=== PATIENT | female | born 2000 | race Caucasian/White ===

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

== ENCOUNTER 2019-03-14 16:45 | Emergency (ER) | payer BC, MEDICAID, SELFPAY ==
[2019-03-14 16:47] VITALS: BP 124/88; PULSE 81; RESP 16; TEMP 36.4; O2SAT 99; BMI 32.4
--- NOTE | 2019-03-14 17:08 | ED.DCSUM_ITS ---
- ER Visit Summary Date of Service: 03/14/19 Chief Complaint: Vaginal bleeding History of Present Illness: The patient is a 18 F no significant past medical or surgical history. G1, P1 Ab0. Delivered about 1-1/2 years ago. Patient states she had a normal menstrual period about 2 weeks ago. And then about a week ago started on vaginal bleeding. She states is heavier than the. And there are clots. She is having mild cramping. No discharge. No fever. No dysuria. She states she normally does not have vaginal bleeding like this. She does feel slightly lightheaded. She is on no blood thinners. Physical Examination: Well-appearing young female. Vital signs are stable and afebrile. Blood pressure 124/88. Heart rate 81. She does not look septic or toxic. She is in no distress. Mom is present in the room. HEENT exam unremarkable. Lungs clear to auscultation bilaterally. Heart regular rhythm no murmur rate about 80. Abdomen soft and nontender normal bowel sounds no peritoneal signs. Extremities moves all 4. No edema. Neurologically she is awake alert with no focal motor deficits. Tests: CBC is normal with a white count of 6 hemoglobin 12.6. Serum test is negative. Emergency Department Course and Treatment: Patient treated with 1 L normal saline. Exam patient is doing well at 18. She denied discussed her test results. She will follow-up with her VICE PRESIDENT OF COMMUNICATIONS Dr. Sunshine Luna. She deferred her pelvic exam on her as normal.. Treatment Plan: Follow-up with VICE PRESIDENT OF COMMUNICATIONS. Disposition: Discharge Impression: Acute vaginal bleeding of uncertain etiology This note was generated with [employer] dictation software. It may contain incorrect words, spelling, and punctuation that were not noted in review of the chart prior to signing ED Disposition - Plan for ED Patient: Referrals: Rekha Dunbar MD [Primary Care Provider] -
[2019-03-14] MEDS: 0.9% Normal Saline 1,000 ML 1000 ML IV (17:35)
[2019-03-14 17:37] LABS: Hematocrit 38.3 % (37-47); Hemoglobin 12.6 g/dL (12.0-15.0); Mean Corp Hgb Conc 32.9 g/dL (32-36); Mean Corpuscular Volume 88.2 fL (81-99); Mean Platelet Vol. 9.8 fl (6.2-12.0); Platelet Count 318 K/mm3 (150-450); RBC Distribution Width CV 11.7 % (11.6-14.6); RBC Distribution Width SD 37.7 fl (35.1-43.9); Red Blood Count 4.34 M/mm3 (4.2-5.4); White Blood Count 6.5 K/mm3 (4.4-11.0)
--- NOTE | 2019-03-14 18:17 | ED.RN ---
PT RINGS OUT STATING THAT HER IV IS PAINFUL. THIS RN TO BEDSIDE, OBVIOUS INFILTRATION NOTED. IV FLUIDS STOPPED, IV DISCONTINUED, CATHETER INTACT, SMALL GAUZE DRESSING PLACED. WARM COMPRESS APPLIED AND SECURED WITH GAUZE WRAP, ARM ELEVATED ON PILLOW, PHYSICIAN AND PRIMARY RN AWARE. PHYSICIAN STATES THAT PATIENT DOES NOT NEED ANOTHER IV.
[2019-03-14 18:34] LABS: Internal QC Validated? YES +Cl - CLEAR BKGD; Pregnancy, Serum, hCG Quali. NEGATIVE Negative
--- NOTE | 2019-03-14 19:47 | ED.DEP ---
ED Disposition - Plan for ED Patient: Disposition: Home or Assisted Living Instructions: Dysfunctional Uterine Bleeding Referrals: Sunshine Luna MD [STAFF PHYSICIAN] - As soon as possible Additional Instructions: Plenty fluids and rest. Tylenol and Motrin for pain. Follow-up with your INDUSTRY OPERATIONS INVESTIGATOR. Your labs today were normal. You had a normal blood count with a hemoglobin of 12.6. And your test was negative.
[2019-03-14 19:51] VITALS: RESP 14
== END 2019-03-14 19:57 | disposition home or self-care (01) ==
PROVIDERS: Emergency Provider Emergency Medicine; Family Provider Pediatrics; PCP Pediatrics
DX: N93.9 Abnormal uterine and vaginal bleeding, unspecified (principal); Z72.0 Tobacco use
CPT/HCPCS: 84703; 85027; 96360; 99284; J7030; A4216

== ENCOUNTER 2019-04-19 09:56 | Day surgery (SDC) | payer BC, MEDICAID, SELFPAY ==
--- NOTE | 2019-04-10 11:25 | HP.PCM_ITS ---
History and Physical Date of Admission: 04/19/19 Pre-Op History and Physical ? HPI: The patient is a 18 year old female presenting for pre-operative visit. She is scheduled for?hysteroscopy D&C, possible polyp resection and possible?LARC insertion, for?AUB and contraceptive management? on?04/19/16. ??Procedure discussed along with risks, benefits and complications. ?Other alternatives discussed for management. Consent form signed??Yes.? PAST?MEDICAL?HISTORY PAST MEDICAL HISTORY Diagnosis Date ? Abdominal pain 01/15/2013 ? Blood in stool ? ? ? PAST?SURGICAL?HISTORY PAST SURGICAL HISTORY Procedure Laterality Date ? COLONOSCOPY ? 02/20/13 ? Negative ? EGD ? 02/20/13 ? Negative ? ? CURRENT?MEDICATIONS Current Outpatient Medications Medication Sig Dispense Refill ? L.acidoph-B.lactis-B.longum (FLORAJEN3) 460 mg (7.5-6- 1.5 bill. cell) cap Take 1 capsule by mouth once daily. 30 capsule 0 ? ibuprofen (MOTRIN) 200 mg tablet Take 200 mg by mouth every 6 hours as needed. ? ? ? clotrimazole (LOTRIMIN, CLOTRIM) 1 % cream Apply 1 application to affected area twice daily. (Patient not taking: Reported on 03/15/2019 ) 45 g 1 ? MEDICATION, NON-DATABASE [employer] brand cough and cold medicine ? ? ? No current facility-administered medications for this visit.? ? ALLERGIES:?Sulfa (Sulfonamide Antibiotics) ? PERSONAL HISTORY:? SOCIAL?HISTORY Social History ??Socioeconomic History ?Marital status: Single ?Spouse name: Not on file ?Number of children: 1 ?Years of education: Not on file ?Highest education level: Not on file ??Occupational History ?Occupation: Unemployed ??Social Needs ?Financial resource strain: Not on file ?Food insecurity: ?Worry: Not on file ?Inability: Not on file ?Transportation needs: ?Medical: Not on file ?Non-medical: Not on file ??Tobacco Use ?Smoking status: Current Some Day Smoker ?Types: Cigarettes ?Smokeless tobacco: Never Used ??Substance and Sexual Activity ?Alcohol use: No ?Drug use: No ?Sexual activity: Not Currently ??Lifestyle ?Physical activity: ?Days per week: Not on file ?Minutes per session: Not on file ?Stress: Not on file ??Relationships ?Social connections: ?Talks on phone: Not on file ?Gets together: Not on file ?Attends roman catholic service: Not on file ?Active member of club or organization: Not on file ?Attends meetings of clubs or organizations: Not on file ?Relationship status: Not on file ?Intimate partner violence: ?Fear of current or ex partner: Not on file ?Emotionally abused: Not on file ?Physically abused: Not on file ?Forced sexual activity: Not on file ??Other Topics ?Concerns: ?Not on file ??Social History Narrative ?Not on file ? FAMILY HISTORY:? FAMILY?HISTORY FAMILY HISTORY Problem Relation Age of Onset ? None Mother ? ? None Father ? ? No Known Problems Sister ? ? Stroke Maternal Grandmother ? ? Thyroid Maternal Grandmother ? ? Heart Maternal Grandfather ? ? None Sister ? ? None Brother ? ? REVIEW OF SYMPTOMS: GENERAL: denies fevers or chills ENDOCRINOLOGY:?no heat or cold intolerance Cardiology : denies palpitations or chest pain Respiratory: denies SOB or cough Hematology: denies history of prolonged bleeding or easy bruising or VTE Allergy: Denies history of personal or family history of allergy to anesthesia ? ? PHYSICAL EXAMINATION: ? VITALS:?Last menstrual period 03/12/2019, not currently . ? GENERAL:??The patient is well nourished, well hydrated in no acute distress. ?, The patient is oriented to time, place, and person. NECK:?Supple. No lynphadenopathy, normal thyroid, no thyromegaly. LUNGS:?Clear to auscultation bilaterally. no wheezes, rhonchi or rales HEART:?Regular rate and rhythm, Normal heart sounds and No murmurs or gallops ? IMPRESSION:?Abnormal uterine bleeding, endometrial polyp, contraception?management ? PLAN:???The risks/benefits/alternatives and personal involved for the planned?hysteroscopy dilation and curettage, possible polyp resection, possible?LARC insertion?were reviewed with the patient. Her questions were answered to her satisfaction and she desires to proceed. ?Consent was signed. ?I reviewed with her postop instructions and expectations. ? ? I have reviewed and updated past medical and surgical history, medications and allergies? this history and physical was completed in my office on 04/10/2019.
[2019-04-19] VITALS (7 sets, daily range): BP systolic 101–130; BP diastolic 56–62; PULSE 70–90; RESP 16; TEMP 37.2–37.3; O2SAT 96–100; BMI 32.1
--- NOTE | 2019-04-19 | EMB_PTH ---
PATIENT: JHON WHITT [place] [facility] [id number] AGE/SX: 18/ ROOM: RE04/19/[address]: Dr. Shana Mcgrath MD : 2000 BED: DIS: 04/19/2019 SPEC #: [id number] RECD: 04/19/19 13:47 STATUS: VISHAL DAMON #: [id number] JOVI: 04/19/19 00:[address]: Shana Mcgrath DEPT: SURGICAL PATHOLOGY RECD BY: Satya Rivers ENTERED: 04/19/19 13:48 SP TYPE: ENDOM BX/C LASHA DR: Dr. Rekha Dunbar MD Tissues: Endometrium, NOS Procedures: Surgery Specimen Level IV HEADER OPERATION: Hysteroscopy, endometrial polyp resection PRE-OP DIAGNOSIS: Abnormal uterine bleeding, endometrial polyp TISSUE SUBMITTED: Endometrial curettings MICROSCOPIC DIAGNOSIS Endometrium, curettings: Polypoid fragments of proliferative endometrium. Chronic endometritis. Rare fragments of benign superficial endocervix. AM:carole 04/20/19 MICROSCOPIC DESCRIPTION Slides are reviewed. GROSS DESCRIPTION Received in fixative is one container labeled with the patient's name and designated endometrial curettings. The specimen consists of multiple irregular fragments of crook-pink soft tissue that in aggregate measure 2.5 x 1.5 x 0.2 cm. The entire specimen is submitted in one cassette. / SJ:carole 04/19/19 TC:3 CPT: 79903
[2019-04-19 10:32] LABS: Hematocrit 35.4 % (37-47); Hemoglobin 11.5 g/dL (12.0-15.0); Mean Corp Hgb Conc 32.5 g/dL (32-36); Mean Corpuscular Volume 86.3 fL (81-99); Mean Platelet Vol. 10.1 fl (6.2-12.0); Platelet Count 311 K/mm3 (150-450); RBC Distribution Width SD 38.1 fl (35.1-43.9); White Blood Count 5.4 K/mm3 (4.4-11.0)
[2019-04-19 10:36] LABS: Internal QC Validated? YES +Cl - CLEAR BKGD; Pregnancy, Urine Negative Negative
[2019-04-19] MEDS: Acetaminophen 500 MG Tablet 1000 MG PO (10:43)
[2019-04-19] MEDS: Lactated Ringers 1,000 ML 100 ML IV ×2 (10:44→13:01)
[2019-04-19] MEDS: Ketorolac 30 MG/ML Syringe IV (10:44)
--- NOTE | 2019-04-19 12:43 | DCINST_ITS ---
Discharge Diet: No Restrictions Discharge Activity: Return to Normal Activity, May Shower, May Take a Tub Bath - in 2 weeks. May resume sexual activity in: 2 weeks Call your doctor if your incision/area has: Sudden Increased Bleeding, Foul Smelling Discharge Call your doctor if you observe: Fever of 101 or Higher, Using more than one pad per hour - for 2 hrs in a row Allergies/Adverse Reactions: Allergies Sulfa (Sulfonamide Antibiotics) Allergy (Verified 04/17/19 12:01) Hives Medications to take at Discharge Ibuprofen [Motrin] 600 mg PO Q6H PRN #60 tab 04/19/19 The following prescriptions were given: Ibuprofen [Motrin] 600 mg PO Q6H PRN #60 tab PRN Reason: Pain Transmission Status: Pending to [facility]/pharmacy #[id number] Primary Care Physician: Rekha Dunbar MD [Primary Care Provider] - Test Results: Test results from this visit will be discussed in further detail at your follow- up appointment, if applicable. Please Follow Up With: Shana Mcgrath MD - [phone] When: 2-4 weeks or as needed
--- NOTE | 2019-04-19 12:43 | PCM.OPRPT ---
Report of Operation Date of Procedure: 04/19/19 Pre-Operative Diagnosis: abnormal uterine bleeding, thickened endometrium Post-Operative Diagnosis: same Surgery/Procedure Performed:: Hysteroscopy D&C with symphion device instructional systems specialist: emilia vicente Type of Anesthesia:: MAC/Supplemental/Local Anesthesiologist: Wil Early Special Medications: none Specimen's removed: endometrial curettings Drains: none Estimated Blood Loss (mL): 10 Fluids Replaced: 1000cc Description of Procedure: The patient was taken to the OR where she was prepped and draped in dorsal lithotomy position. The weighted speculum was placed in the vagina and the anterior lip of the cervix was grasped with a single-tooth tenaculum. A paracervical block was administered with 1% lidocaine with 1-100,000 epinephrine solution. The cervix was dilated serially with Hegar dilators. The 5mm hysteroscope was placed into the uterine cavity and the above findings were noted. Bilateral tubal ostia were identified. No discrete endometrial polyp was noted. The Symphony on device was used to perform visual D&C of the endometrial cavity. The instruments were removed from the vagina. The specimen was handed off and sent to pathology. All sponge and needle counts were correct. Vaginal sweep was performed by me. The patient was awakened and taken to the recovery room in stable condition. Hysteroscopic ins: 500cc normal saline Hysteroscopic outs:250cc Findings: Endometrial cavity: Normal, no fibroids or polyps noted Cervix: Normal Vagina: Normal Grafts/Implants Used: none - Complications none - Admit VTE Documentation VTE Present on Admission: No VTE Mechan Device Prophylaxis: SCD's VTE Pharm Prophylaxis ordered?: No Reason prophylaxis not ordered:: Procedure Not Indicated
== END 2019-04-19 14:35 | disposition home or self-care (01) ==
LOC: SDC 09:57 → AC 09:59
PROVIDERS: Family Provider Pediatrics; PCP Pediatrics; Referring Provider Obstetrics & Gynecology; Visit Provider Obstetrics & Gynecology
PROC: (CPT 58558; principal; 2019-04-19 11:40)
DX: N71.1 Chronic inflammatory disease of uterus (principal); N93.9 Abnormal uterine and vaginal bleeding, unspecified; R93.89 Abnormal findings on diagnostic imaging of other specified body structures; F17.210 Nicotine dependence, cigarettes, uncomplicated; Z88.2 Allergy status to sulfonamides
CPT/HCPCS: 58558; 36415; 81025; 85027; 88305; J7120; J2405

== ENCOUNTER 2019-07-27 23:01 | Emergency (ER) | payer BC, MEDICAID, SELFPAY ==
[2019-04-19 10:27] VITALS: BMI 32.1
[2019-07-27 23:02] VITALS: BP 113/62; BP 115/77; PULSE 72; PULSE 78; RESP 15; RESP 16; TEMP 37.1; O2SAT 98; O2SAT 99; BMI 33.0
--- NOTE | 2019-07-27 23:33 | US_ITS ---
HISTORY: Heavy bleeding. Stabbing pain. LMP 06/11/2019. 88 images, and 2 cine clips. Findings: Endovaginal imaging only. The uterus measures 9.2 x 4.4 x 6.7 cm. Some hypoechoic fluid is been within the endocervical canal, suggesting blood. Color Doppler imaging fails to demonstrate flow within the endocervical canal. No large masses or fluid collections. The right ovary measures 2.5 x 3.3 x 2 cm. Color and pulse Doppler imaging to suggest arterial and venous flow within the right ovarian parenchyma. The left ovary measures 2.5 x 2.7 x 1.9 cm. Color and pulse wave Doppler imaging suggest arterial flow within the left ovarian parenchyma. Follicles are present. Mean sac diameter is 2.4 cm. This equates to 7 weeks estimated gestational age. A physiologic amount of free fluid is present posteriorly. Within the gestational sac there is a yolk sac and a fetus. Inner yolk sac diameter is 4 mm. Pooler-rump length is 6 mm. heart motion by M-mode imaging is detected at 120 bpm. US/Transvaginal w/Preg US IMPRESSION: SLIUP. EGA is 6 W-4 D. MICA is 03/13/2020. Tiny amount of fluid within the endocervical canal may be blood. at 0025 Reported and signed by: Shahram Johnson MD Electronically Signed: Shahram Johnson MD at 0:24 EST Tel , Service support ,
--- NOTE | 2019-07-27 23:33 | ED.VIS.GEN ---
History of Present Illness Chief Complaint: Vag Bld, Preg Narrative: Patient is a 18-year-old G2, P1 6-week female who presents with vaginal bleeding. She had some spotting over the last week. However her bleeding became heavier tonight and she describes as similar to a period. She denies any clots. She does complain of some pelvic cramping. No fevers nausea vomiting diarrhea. No dysuria urgency frequency. She denies recent illness. Past Medical History - Allergies and Home Meds Allergies/Adverse Reactions: Allergies Sulfa (Sulfonamide Antibiotics) Allergy (Verified 07/27/19 23:07) Hives Primary Care Physician: Rekha Dunbar MD [Primary Care Provider] - Past Medical History: None Smoking Status: Light Smoker (<10/day) Review of Systems All systems negative except as indicated General: Denies: Fever Eyes: Denies: Visual changes - bilaterally ENT: Denies: Bilateral ear pain Cardiovascular: Denies: Chest pain Respiratory: Denies: Dyspnea Gastrointestinal: Denies: Abdominal pain, Nausea, Vomiting Genitourinary: Reports: - - Pelvic pain, vaginal bleeding. Denies: Dysuria, Frequency Skin: Denies: Rash Neurological: Denies: Headache Hematologic: Denies: Easy bruising Allergy: Denies: Uticaria Physical Exam Vital Signs/Narrative: Vital Signs Temp Pulse Resp BP Pulse Ox 07/27/19 23:02 98.8 F 78 15 113/62 98 Inital Vital Signs reviewed: Yes General: Well nourished Head: Normocephalic Eyes: EOMI ENT: Moist mucous membranes Neck: Supple Cardiovascular: Regular rate, Regular rhythm Respiratory: No distress Abdomen: Soft, Nontender, Nondistended Skin: Normal color Neurological: Alert Psychological: Normal affect Diagnostic/Tx/Re-eval Impressions Obstetrics Ultrasound 07/27/19 23:33 IMPRESSION: SLIUP. EGA is 6 W-4 D. MICA is 03/13/2020. Tiny amount of fluid within the endocervical canal may be blood. at 0025 Reported and signed by: Shahram Johnson MD Electronically Signed: Shahram Johnson MD at 0:24 EST Tel , Service support , 07/27/19 23:33 Transvaginal w/Preg US [US] Stat Laboratory Results 07/28/19 07/28/19 07/28/19 00:06 00:06 00:25 HCG, Quant [id number] H Urine Color Yellow Urine Clarity Sl. Cloudy Urine pH 6.0 Ur Specific [place] 1.020 Urine Protein Negative Urine Glucose (UA) Normal Urine Ketones 5 H Urine Occult Blood 250 H Urine Nitrite Negative Urine Bilirubin Negative Urine Urobilinogen Normal Ur Leukocyte Esterase Negative Urine RBC 0-5 SEEN Urine WBC 0-5 SEEN Ur Squamous Epith Cells 0-5 SEEN Amorphous Sediment 1+ Urine Bacteria 0 SEEN Urine Mucus 0 SEEN Blood Type AB NEGATIVE - Medical Decision Making Patient underwent the above diagnostic evaluation. Urinalysis is not suggestive of cystitis. Ultrasound does show a single live intrauterine with fluid within the endometrial canal, likely small amount of blood. She has Rh-. Therefore she was given RhoGam. She was advised that given early with bleeding this threatened miscarriage. She understands to return for new or worsening symptoms otherwise to follow-up as an outpatient with obstetrics. All questions answered at bedside. Patient discharged. ED Disposition - Plan for ED Patient: Disposition: Home or Assisted Living Diagnosis: Threatened miscarriage Instructions: POSSIBLE MISCARRIAGE (Threatened ) Referrals: Rekha Dunbar MD [Primary Care Provider] - Janett Greenfield DO [STAFF PHYSICIAN] -
[2019-07-28 00:35] LABS: Bacteria 0 SEEN /hpf (None Seen); Mucous, Urine 0 SEEN /hpf (<or=2+)
[2019-07-28 00:36] LABS: Color, Urine Yellow (Yellow); Glucose, Dipstick Normal (Normal); Ketone-Dipstick 5 mg/dl (Negative); Leukocyte Esterase-Dipstick Negative /ul (Negative); Nitrite-Dipstick Negative (Negative); Occult Blood-Urine 250 /ul (Negative); Protein-Dipstick Negative (Negative); Urine Bilirubin Dipstick Negative (Negative); Urine Clarity Sl. Cloudy (Clear); Urine Urobilinogen Normal (Normal)
[2019-07-28 01:02] VITALS: BP 118/82; PULSE 76; RESP 15; O2SAT 98
[2019-07-28 01:04] LABS: Amorphous Sediment 1+; Red Blood Cells-Urine 0-5 SEEN /hpf (0-5); Squamous Epithelial Cells - UA 0-5 SEEN /hpf (5-10); White Blood Cells 0-5 SEEN /hpf (0-5)
--- NOTE | 2019-07-28 02:46 | ED.RN ---
SHOT TIME OBSERVED FOR 20 MIN, NO REACTION NOTED BY THIS NURSE.
[2019-07-28 02:47] VITALS: BP 115/75; PULSE 88; RESP 16; O2SAT 97
== END 2019-07-28 02:47 | disposition home or self-care (01) ==
PROVIDERS: Emergency Provider Emergency Medicine; Family Provider Pediatrics; PCP Pediatrics
DX: O20.0 Threatened abortion (principal); O99.331 Smoking (tobacco) complicating pregnancy, first trimester; F17.200 Nicotine dependence, unspecified, uncomplicated; Z3A.01 Less than 8 weeks gestation of pregnancy
CPT/HCPCS: 76817; 81001; 84702; 86900; 86901; 90384; 99283; J2790

== ENCOUNTER 2019-08-01 21:34 | Emergency (ER) | payer BC, MEDICAID, SELFPAY ==
[2019-08-01 21:34] VITALS: BP 107/58; PULSE 82; RESP 16; TEMP 37.2; O2SAT 97; BMI 32.9
--- NOTE | 2019-08-01 21:52 | US_ITS ---
STUDY: FIRST TRIMESTER OBSTETRICAL ULTRASOUND REASON FOR EXAM: Female, 18 years old bleeding with clots today, evaluate for viability LMP: 06/11/2019 TECHNIQUE: Transvaginal TECHNICAL QUALITY: Adequate. PRIOR ULTRASOUND: Prior study of 07/27/2019 FINDINGS: There is visualization of a single gestational sac in a normal intrauterine position. The mean sac diameter (MSD) measures 2.79 cm, indicating an estimated gestational age (EGA) of 8 weeks, 0 days. The gestational sac shape is within normal limits. There is a visualized yolk sac. The yolk sac measures 3.8 mm. There is visualization of the placenta. Anterior located placenta. There is visualization of a live embryo. The crown-rump length (CRL) measures 1.19 cm, indicating an estimated gestational age (EGA) of 7 weeks, 3 days. There is demonstrated cardiac activity with a heart rate of 154 bpm. The estimated gestation age (EGA) by LMP is 7 weeks, 2 days. The estimated date of delivery (MICA) by LMP is 03/17/2020. The estimated gestation age (EGA) by US is 7 weeks, 5 days. The estimated date of delivery (MICA) by US is 03/14/2020. The uterus measures 9.3 x 6.1 x 4.6 cm.. There is no demonstrated uterine fibroid. The cervix is closed. The right ovary measures 3.9 x 2.5 x 1.7. There is a right ovarian cyst measuring 1.2 x 1.1 x 1.2 cm. There is no visualized right adnexal mass or complex lesion. The left ovary measures 2.8 x 1.9 x 1.4 cm.. There is no left ovarian cyst. There is no visualized left adnexal mass or complex lesion. There is minimal fluid in the cul de sac. US/Transvaginal w/Preg US IMPRESSION: Single viable intrauterine of approximately 7 weeks 5 days gestational age by current ultrasonographic measurement. A heart rate of 154 bpm is noted. Electronically Signed: Thomas Sandoval MD at 22:46 EST , Service support ,
--- NOTE | 2019-08-01 21:59 | ED.DCSUM_ITS ---
History of Present Illness Chief Complaint: Vag Bld, Preg Detail of Chief Complaint: Approximately 7 weeks gestation Informant: Patient Onset: Days, Weeks Context: Sudden Onset Timing: Intermittent Quality: Passing clots Location: Vaginal Current Severity: Moderate Maximum Severity: Moderate Worsened by: First trimester Relieved by: Nothing Associated Symptoms: No associated symptoms Narrative: Patient is a 18-year-old G2, P1 female who is approximately 7 weeks gestation who presents with vaginal bleeding. She is passing clots. She received RhoGam last week. She has AB- blood. There is no complication with first . She is seen through the [facility] OB department. She denies orthostatic symptoms. Denies pain referred to her shoulder. There is no history of ectopic . She complains of cramping pain and passing clots. Patient denies fever, chills or night sweats. Patient denies cardiac respiratory symptoms. She denies nausea, vomiting or diarrhea. She denies dysu cira or hematuria. She does have frequency. Prior similar symptoms: Yes Recent Illness/Hospitalization: Yes - Past Medical History (1) No significant past medical history Status: Acute Past Medical History - Allergies and Home Meds Allergies/Adverse Reactions: Allergies Sulfa (Sulfonamide Antibiotics) Allergy (Verified 07/27/19 23:07) Hivyoselyn Primary Care Physician: Rekha Dunbar MD [Primary Care Provider] - Prior records reviewed: Yes Surgical History: noncontributory Lives: With Family Smoking Status: Former smoker Alcohol: None Drugs: None Review of Systems General: Denies: Chills, Malaise Eyes: Denies: Visual changes - right, Blurred vision - right Cardiovascular: Denies: Chest pain, Palpitations Respiratory: Denies: Dyspnea, Cough, Sputum, Dyspnea on exertion Gastrointestinal: Reports: Abdominal pain. Denies: Nausea, Vomiting, Diarrhea Genitourinary: Reports: Frequency. Denies: Dysuria, Hematuria Musculoskeletal: Denies: Myalgias, Arthralgias, Neck pain, Back pain, Swelling, Extremity Pain, -, - Skin: Denies: Rash, Abrasions, Wounds Neurological: Denies: Headache, Weakness, Parasthesia, Numbness Hematologic: Denies: Easy bruising, Easy bleeding Physical Exam Vital Signs/Narrative: Vital Signs Temp Pulse Resp BP Pulse Ox 08/01/19 21:34 99.0 F 82 16 107/58 L 97 Inital Vital Signs reviewed: Yes General: Well nourished, Well developed, No Acute Distress Head: Normocephalic, Atraumatic Eyes: Perrl, EOMI. Negative for: Pale conjunctiva, Scleral icterus ENT: Moist mucous membranes, No rhinorrhea Neck: Supple, Nontender, No lymphadenopathy, No JVD Cardiovascular: Regular rate, Regular rhythm, No murmurs, Normal S1, Normal S2 Respiratory: No distress, CTA bilaterally, Chest nontender Abdomen: Soft, Nondistended, Normal bowel sounds, Tender - In the suprapubic region. Back: Nontender, Normal Inspection. Negative for: CVA tenderness Extremities: Nontender, No edema Skin: Normal color, No rash, No Trauma. Negative for: Cyanosis, Diaphoresis, Jaundice Neurological: Alert, Oriented x3, Cranial nerves II-XII grossly intact, Normal Strength, Normal Sensation, Normal DTR Psychological: Normal affect, Normal Mood Diagnostic/Tx/Re-eval Impressions Obstetrics Ultrasound 08/01/19 21:52 IMPRESSION: Single viable intrauterine of approximately 7 weeks 5 days gestational age by current ultrasonographic measurement. A heart rate of 154 bpm is noted. Electronically Signed: Thomas Sandoval MD at 22:46 EST , Service support , 08/01/19 21:52 Transvaginal w/Preg US [US] Stat - Medical Decision Making Since patient is now having cramps with passing clots will obtain transvaginal ultrasound to evaluate for viability of and determine if she has had a incomplete versus complete AB. ED Disposition - Plan for ED Patient: Disposition: Home or Assisted Living Diagnosis: Threatened in first trimester Instructions: POSSIBLE MISCARRIAGE (Threatened ) Referrals: Rekha Dunbar MD [Primary Care Provider] - Janett Greenfield DO [STAFF PHYSICIAN] - 3-5 Days
== END 2019-08-01 23:22 | disposition home or self-care (01) ==
PROVIDERS: Emergency Provider Emergency Medicine; Family Provider Pediatrics; PCP Pediatrics
DX: O20.0 Threatened abortion (principal); Z3A.01 Less than 8 weeks gestation of pregnancy; Z87.891 Personal history of nicotine dependence
CPT/HCPCS: 76817; 99282

== ENCOUNTER 2019-08-12 19:55 | Emergency (ER) | payer BC, MEDICAID, SELFPAY ==
[2019-08-12 19:56] VITALS: BP 114/67; PULSE 103; RESP 14; TEMP 37.6; O2SAT 96; BMI 31.6
[2019-08-12 21:11] LABS: Absolute Lymphocyte Count 0.59 X10^3/uL (0.83-4.51); Absolute Neutrophil Count 3.5 X10^3/uL (2.0-7.7); Hematocrit 35.3 % (37-47); Hemoglobin 11.4 g/dL (12.0-15.0); Lymphocyte # 0.59 X10^3/ul (4.0); Lymphocyte % 13.1 % (19-41); Mean Corp Hgb Conc 32.3 g/dL (32-36); Mean Corpuscular Hgb 27.1 pg (27.0-32.0); Mean Corpuscular Volume 83.8 fL (81-99); Mean Platelet Vol. 10.1 fl (6.2-12.0); Monocyte# 0.45 X10^3/uL; NRBC Flagged by Analyzer 0 % (0-5); Neutrophil # 3.46 X10^3/uL (2.7-7.7); Neutrophil % 76.7 % (47-70); POSITIVE DIFFERENTIAL YES; Platelet Count 246 K/mm3 (150-450); RBC Distribution Width CV 14.6 % (11.6-14.6); RBC Distribution Width SD 44.3 fl (35.1-43.9); Red Blood Count 4.21 M/mm3 (4.2-5.4); White Blood Count 4.5 K/mm3 (4.4-11.0)
[2019-08-12 21:21] LABS: Anion Gap 8 (5-15); BUN 5 mg/dL (7-18); BUN/Creat Ratio 9.4 RATIO (10-20); Calcium,Total 8.7 mg/dL (8.5-10.1); Chloride 108 mmol/L (98-107); Creatinine, Serum 0.53 mg/dL (0.55-1.02); EST Glomerular Filtration Rate 156 mL/min (>60); Est Glom Filt Rate - Afr Amer 189 mL/min (>60); Estimated Creatinine Clearance 191.21 ml/min; Glucose 89 mg/dL (74-106); Potassium 3.7 mmol/L (3.5-5.1); Sodium Level 138 mmol/L (136-145)
[2019-08-12 21:22] LABS: Differential Indicated SCAN CRITERIA MET
--- NOTE | 2019-08-12 21:36 | RAD_ITS ---
HISTORY:FEVER, DIZZINESSPT IS 9 WEEKS - WAS SHIELDED FEVER, DIZZINESSPT IS 9 WEEKS - WAS SHIELDED EXAMINATION/TECHNIQUE: XR Chest 2 Views: COMPARISON: November 29, 2018 FINDINGS: LINES/DEVICES: None. LUNGS: No consolidation, edema or effusion. No pneumothorax. MEDIASTINUM AND CARDIOVASCULAR STRUCTURES: Cardiac silhouette not enlarged. Central airways and mediastinal contour are unremarkable. BONES AND SOFT TISSUES: Unremarkable. RAD/Chest PA and Lateral IMPRESSION: No radiographic evidence of acute cardiopulmonary disease. at 2232 Reported and signed by: Phylicia Starkey DO Electronically Signed: Phylicia Starkey DO at 22:31 EST Tel , Service support ,
--- NOTE | 2019-08-12 21:39 | ED.DCSUM_ITS ---
- ER Visit Summary Date of Service: 08/12/19 Chief Complaint: Fever History of Present Illness: The patient is a 18 F who presents with a fever that began yesterday. Patient states her temperature was up to 101 at home. Patient also admits to some chills. Patient admits to nausea but denies any vomiting. Patient is approximately 9 weeks . Patient states she has been taking Tylenol with some improvement of her fevers. Patient admits to a mild headache and mild low back pain. Patient also admits to some pain in her chest. Patient denies any cough. Patient denies any sore throat or rhinorrhea. Physical Examination: Vital signs are stable. Patient is afebrile here. Patient is in no acute distress. Oral mucosa is pink and moist. Neck is supple. Trachea is midline. There is no JVD. Heart was regular rate and rhythm. Lungs are clear and equal bilaterally. Abdomen is soft. There is mild diffuse tenderness. There is no rebound or guarding noted. Cranial nerves II through XII are intact. There are no focal motor or sensory deficits noted. Test Results: CBC shows a mild anemia with hemoglobin of 11.4 and hematocrit 35.3. Basic metabolic profile was essentially within normal limits. Urinalysis shows leukocyte esterase of 500 with 10-25 white blood cells. There were 10-25 epithelial cells as well. There is rare bacteria. Urine culture was obtained. PA and lateral chest x-ray was obtained. There is no acute cardiopulmonary process. This was interpreted by the radiologist and myself. Emergency Department Course and Treatment: Patient felt better on reevaluation. Patient was instructed to continue Tylenol as needed for fevers. Patient was given a prescription for Keflex. Patient was instructed to follow-up with her primary care physician and DEVELOPMENTAL PSYCHOLOGIST in 5 to 7 days. Patient and family understood and were agreeable with the plan. All questions were answered. Disposition: Discharge home Impression: Urinary tract infection This note was generated with Seelio dictation software. It may contain incorrect words, spelling, and punctuation that were not noted in review of the chart prior to signing ED Disposition - Plan for ED Patient: Disposition: Home or Assisted Living Diagnosis: Urinary tract infection Instructions: Bladder Infection, Female (Adult) Prescriptions: Cephalexin [Keflex] 500 mg PO Q6 #20 cap Prescription Printed Referrals: Rekha Dunbar MD [Primary Care Provider] - 5-7 Days
[2019-08-12 21:42] LABS: Mucous, Urine 0 SEEN /hpf (<or=2+); Red Blood Cells-Urine 0 SEEN /hpf (0-5)
[2019-08-12 21:44] LABS: Color, Urine Yellow (Yellow); Glucose, Dipstick Normal (Normal); Leukocyte Esterase-Dipstick 500 /ul (Negative); Nitrite-Dipstick Negative (Negative); Occult Blood-Urine 10 /ul (Negative); Protein-Dipstick 30 mg/dl (Negative); Specific Gravity, Urine 1.025 (1.002-1.030); Urine Bilirubin Dipstick Negative (Negative); Urine Clarity Cloudy (Clear); Urine Urobilinogen Normal (Normal)
[2019-08-12 21:50] LABS: Ketone-Dipstick 150 mg/dl (Negative)
[2019-08-12 21:51] LABS: White Blood Cells 10-25 SEEN /hpf (0-5)
[2019-08-12 21:52] LABS: Amorphous Sediment 1+ URATE; Bacteria RARE /hpf (None Seen); Squamous Epithelial Cells - UA 10-25 SEEN /hpf (5-10)
[2019-08-12 22:04] VITALS: BP 122/65; PULSE 65; RESP 12; O2SAT 96
[2019-08-12 22:07] LABS: Differential Comment SCANNED; Ovalocyte RARE; Platelet Estimate ADEQUATE (ADEQ)
[2019-08-12 22:47] VITALS: BP 123/61; PULSE 78; RESP 14; O2SAT 98
== END 2019-08-12 22:52 | disposition home or self-care (01) ==
PROVIDERS: Emergency Provider Emergency Medicine; Family Provider Pediatrics; PCP Pediatrics
DX: O23.41 Unspecified infection of urinary tract in pregnancy, first trimester (principal); O99.011 Anemia complicating pregnancy, first trimester; D64.9 Anemia, unspecified; Z3A.09 9 weeks gestation of pregnancy
CPT/HCPCS: 71046; 80048; 81001; 85025; 87804; 99283; A4216

== ENCOUNTER 2020-02-08 01:04 | Outpatient (CLI) | payer BC, MEDICAID, SELFPAY ==
[2020-02-08 01:14] VITALS: BP 109/55; PULSE 85; TEMP 36.9; O2SAT 98
[2020-02-08 01:20] VITALS: BMI 36.2
[2020-02-08 02:23] LABS: Color, Urine Yellow (Yellow); Glucose, Dipstick Normal (Normal); Ketone-Dipstick Negative (Negative); Leukocyte Esterase-Dipstick 100 /ul (Negative); Mucous, Urine 0 SEEN /hpf (<or=2+); Nitrite-Dipstick Positive (Negative); Occult Blood-Urine Negative /ul (Negative); Protein-Dipstick Negative (Negative); Red Blood Cells-Urine 0 SEEN /hpf (0-5); Specific Gravity, Urine 1.025 (1.002-1.030); Urine Bilirubin Dipstick Negative (Negative); Urine Clarity Clear (Clear); Urine Urobilinogen Normal (Normal)
[2020-02-08 02:30] LABS: Bacteria 2+ /hpf (None Seen); Squamous Epithelial Cells - UA 10-25 SEEN /hpf (5-10); White Blood Cells 10-25 SEEN /hpf (0-5)
[2020-02-08] MEDS: Nitrofurantoin Macrocrystals 100 MG Capsule PO (02:42)
--- NOTE | 2020-02-08 06:55 | OB.TRI.HP_ITS ---
- Problem List (1) Pelvic pressure in , antepartum Status: Acute (2) Back pain Status: Acute History of Present Illness Date of Service: 02/08/20 Was patient seen by the physician?: No Reason For Visit: RULE OUT LABOR Date of Service: 02/08/20 Final MICA: 03/17/20 Final MICA Source: US <20 weeks Gestational age: 34 Weeks and 4 Days History of Present Illness: Patient is a 19 year old at 34.4 weeks gestation that presents with back pain, cramping and dysuria. Started having contractions earlier this evening. Denies loss of fluid or vaginal bleeding. Positive movement. Allergies Sulfa (Sulfonamide Antibiotics) Allergy (Verified 08/12/19 19:56) Hives Laboratory Studies: Laboratory Tests 02/08/20 Range/Units 02:05 Urine Color Yellow (Yellow) Urine Clarity Clear (Clear) Urine pH 6.0 (5.0 - 8.0) Ur Specific [place] 1.025 (1.002-1.030) Urine Protein Negative (Negative) mg/dl Urine Glucose (UA) Normal (Normal) mg/dl Urine Ketones Negative (Negative) mg/dl Urine Occult Blood Negative (Negative) /ul Urine Nitrite Positive H (Negative) Urine Bilirubin Negative (Negative) mg/dL Urine Urobilinogen Normal (Normal) mg/dl Ur Leukocyte Esterase 100 H (Negative) /ul Urine RBC 0 SEEN (0-5) /hpf Urine WBC 10-25 SEEN (0-5) /hpf Ur Squamous Epith Cells 10-25 SEEN (5-10) /hpf Urine Bacteria 2+ (None Seen) /hpf Urine Mucus 0 SEEN (<or=2+) /hpf Review of Systems Constitutional: Denies: Fever Cardiovascular: Denies: Chest Pain Respiratory: Denies: Cough, Shortness of Breath Genitourinary: Reports: Dysuria, Frequency, Urgency Neurological: Denies: Headaches Physical Exam Vitals: Vital Signs Temp Pulse BP Pulse Ox 98.5 F 85 109/55 L 98 02/08/20 01:14 02/08/20 01:14 02/08/20 01:14 02/08/20 01:14 NST - FHR Rate Baby A Baseline: 135 Variability:: Moderate Accelerations:: 15 x 15 Decelerations:: None NST Reactive:: Yes FHR Category:: Category I Uterine Activity:: TOCO reads every 2-4 minutes. Palpate mild and relaxed in between Impression/Plan at 34.4 weeks gestation with pelvic pressure, contractions and back pain CE unchanged UA sent and results show indication of UTI Category 1 tracing Discharge patient home Start Macrobid 100mg PO BID x 7 days 1st dose of Macrobid given prior to discharge Patient to follow up in office for STEPHON or call if symptoms worsen Patient agrees with plan of care
== END 2020-02-08 03:00 | disposition home or self-care (01) ==
LOC: WPOUT 01:06 → OBT 01:07
PROVIDERS: PCP Pediatrics; Referring Provider Advanced Practice Midwife; Visit Provider Advanced Practice Midwife
DX: O23.43 Unspecified infection of urinary tract in pregnancy, third trimester (principal); Z3A.34 34 weeks gestation of pregnancy
CPT/HCPCS: 59025; 59050; 81001; 99218; G0378

== ENCOUNTER 2020-02-28 09:30 | Outpatient (CLI) | payer BC, MEDICAID, SELFPAY ==
[2020-02-28 09:48] VITALS: BP 120/59; PULSE 81; TEMP 37.2
[2020-02-28 11:02] VITALS: BMI 37.8
--- NOTE | 2020-02-29 07:37 | OB.TRI.NOTE ---
History of Present Illness Date of Service: 02/28/20 Was patient seen by the physician?: No Reason For Visit: R/O LABOR Date of Service: 02/28/20 Final MICA: 03/17/20 Final MICA Source: US <20 weeks Gestational age: 37 Weeks and 4 Days Allergies Sulfa (Sulfonamide Antibiotics) Allergy (Verified 08/12/19 19:56) Hives Physical Exam Vitals: Vital Signs Temp Pulse BP 98.9 F 81 120/59 L 02/28/20 09:48 02/28/20 09:48 02/28/20 09:48 NST - FHR Rate Baby A Baseline: 135 Variability:: Moderate Accelerations:: 15 x 15 Decelerations:: None NST Reactive:: Yes FHR Category:: Category I Uterine Activity:: irreg ctxs Impression/Plan 19 YOF @ 37 + weeks w/ false labor f/u in office as scheduled or return prn
== END 2020-02-28 11:15 | disposition home or self-care (01) ==
LOC: WPOUT 09:37 → WP 09:38
PROVIDERS: PCP Pediatrics; Referring Provider Obstetrics & Gynecology; Visit Provider Obstetrics & Gynecology
DX: O47.1 False labor at or after 37 completed weeks of gestation (principal); Z3A.37 37 weeks gestation of pregnancy; Z88.2 Allergy status to sulfonamides
CPT/HCPCS: 59025; 59050; 99218; G0378

== ENCOUNTER → 2020-03-06 09:47 | Outpatient (CLI) | payer BC, MEDICAID, SELFPAY ==
[2020-02-28 11:02] VITALS: BMI 37.8
== END ==
PROVIDERS: PCP Pediatrics; Visit Provider Obstetrics & Gynecology
DX: Z11.59 Encounter for screening for other viral diseases (principal)
CPT/HCPCS: 87635; C9803; G2023; U0003

== ENCOUNTER 2020-03-12 19:10 | Inpatient (IN) | payer BC, MEDICAID, SELFPAY ==
[2020-03-12] VITALS (23 sets, daily range): BP systolic 110–143; BP diastolic 59–90; PULSE 63–112; TEMP 36.6–37.2; O2SAT 83–100; BMI 37.9
[2020-03-12] MEDS: Lactated Ringers 1,000 ML 50 ML IV (19:35)
[2020-03-12 20:16] LABS: Absolute Lymphocyte Count 1.84 X10^3/uL (0.83-4.51); Absolute Neutrophil Count 6.1 X10^3/uL (2.0-7.7); Basophil# 0.01 X10^3/uL; Basophil% 0.1 % (0-1); Eosinophils% 1.1 % (0-5); Hematocrit 34.7 % (37-47); Hemoglobin 11.3 g/dL (12.0-15.0); Lymphocyte # 1.84 X10^3/ul (4.0); Lymphocyte % 20.3 % (19-41); Mean Corp Hgb Conc 32.6 g/dL (32-36); Mean Corpuscular Hgb 29.5 pg (27.0-32.0); Mean Corpuscular Volume 90.6 fL (81-99); Mean Platelet Vol. 11.5 fl (6.2-12.0); Monocyte# 0.98 X10^3/uL; Monocyte% 10.8 % (0-10); NRBC Flagged by Analyzer 0 % (0-5); Neutrophil # 6.06 X10^3/uL (2.7-7.7); Platelet Count 234 K/mm3 (150-450); RBC Distribution Width CV 13.5 % (11.6-14.6); RBC Distribution Width SD 44.1 fl (35.1-43.9); Red Blood Count 3.83 M/mm3 (4.2-5.4); White Blood Count 9.1 K/mm3 (4.4-11.0)
[2020-03-12] MEDS: Oxytocin 30 units/NS 500 ml 30 UNITS/500 ML IV.SOLN IV (20:21)
[2020-03-12] MEDS: Lactated Ringers 500 ML 999 ML IV ×2 (22:40→23:22)
[2020-03-12] MEDS: fentaNYL-bupivacaine (epidural) 100 ML BAG EPIDURAL (23:56)
[2020-03-13] VITALS (39 sets, daily range): BP systolic 105–147; BP diastolic 51–83; PULSE 61–141; RESP 16–18; TEMP 36.4–37.3; O2SAT 77–100
[2020-03-13] MEDS: Lactated Ringers 1,000 ML 200 ML IV (04:04)
[2020-03-13] MEDS: fentaNYL-bupivacaine (epidural) 100 ML BAG EPIDURAL (04:21)
[2020-03-13] MEDS: Lactated Ringers 500 ML 999 ML IV (07:51)
[2020-03-13] MEDS: Amnioinfusion- 0.9% NS 1,000 ML IV.SOLN. 300 ML INTRA-UTER (08:48)
[2020-03-13] MEDS: Oxytocin 30 units/NS 500 ml 30 UNITS/500 ML IV.SOLN 334 UNITS IV (10:53)
--- NOTE | 2020-03-13 11:04 | HP.PCM_ITS ---
History Date of Admission: 03/12/20 Final MICA: 03/17/20 Final MICA Source: US <20 weeks Gestational age: 39 Weeks and 3 Days History of this : This is a 19 year-old, 2 para 1 female admitted at 39-2/7 weeks gestation on 03/12/2020 for induction of labor due to maternal discomfort. Patient's was complicated by trimester bleeding, she is Rh- and received glucose. She had an abnormal 1 hour GTT but a normal 3-hour. She denies any gross vaginal bleeding, leaking of fluid. She has had good movement. She has had severe pelvic pain making it difficult for her to walk. Has a history of one previous vaginal delivery at 41 weeks gestation on 10/07/2017 of an 8 pound 4 ounce complicated by maternal and fevers. Allergies Sulfa (Sulfonamide Antibiotics) Allergy (Verified 08/12/19 19:56) Hives Home Medications: Home Medications Vits [Prenatabs FA] 1 tab PO DAILY 03/12/20 Smoking Status: Former smoker Alcohol: None Number of Fetus(es): 1 NST - FHR Rate Baby A Baseline: Normal upon admission Variability:: Moderate Accelerations:: 15 x 15 NST Reactive:: Yes FHR Category:: Category I - On admission Uterine Activity:: No contractions on admission History Past Pregnancies: Past Pregnancies Delivery Date Name GA/ Weeks Outcome Route Wt Sex Labor Length Anesthesia Delivery Location Provider FOB Review of Systems Constitutional: Denies: Chills, Fever Eyes: Denies: Blurred vision Cardiovascular: Denies: Chest Pain Respiratory: Denies: Cough, Shortness of Breath Musculoskeletal: Reports: Joint Pain, Joint stiffness Neurological: Denies: Blurred vision, Change in Speech, Slurred speech, Confusion Hematologic/ Lymphatic: Denies: Anemia Physical Exam Vitals: Vital Signs Temp Pulse BP Pulse Ox 97.7 F L 97 139/81 H 100 03/13/20 08:43 03/13/20 11:03 03/13/20 11:03 03/13/20 06:28 General: Alert, Cooperative, No apparent distress Cardiovascular: Regular rate Lungs: Normal air movement Abdomen: Soft, Non Tender, Non-Distended, Gravid, Appropriate for Gestational Age Extremities:: Other - 2+ edema Neurological: Cranial nerves II-XII grossly intact TECHNICAL INFORMATION SPECIALIST: Normal external genitalia Estimated gestational size: Appropriate for gestational size Presentation: Cephalic Assessment/Plan All Active Problems No significant past medical history (Acute) Pelvic pressure in , antepartum (Acute) Back pain (Acute) This is a 19 year-old, 2 para 1 at 39-2/7 weeks gestation for elective induction of labor. Risk benefits and alternatives to induction labor have been discussed the patient, questions were answered to her satisfaction and consent was signed. Will undergo Pitocin and artificial rupture membranes. weight is less than 4500 g clinically, pelvis clinically adequate to expect vaginal delivery. May have IV pain medication, nitrous oxide or dural as needed for pain control. Recent COVID-19 test was negative.
--- NOTE | 2020-03-13 11:08 | PCM.OPRPT ---
Vaginal Delivery Maternal Presentation: Elective Induction - For maternal discomfort Method of Induction: Pitocin, Amniotomy Amniotic Membrane Rupture Type: Artificial Amniotic Fluid Description: Clear Final MICA: 03/17/20 Final MICA Source: US <20 weeks Gestational age: 39 Weeks and 3 Days Date of Procedure: 03/13/20 Pre-Operative Diagnosis: Labor Post-Operative Diagnosis: Labor Surgery/ Procedure Performed: Spontaneous Vaginal Delivery Type of Anesthesia: Epidural Description of Procedure: A vigorous [female] infant was delivered [OLIVIER] over intact perineum. The remainder the was delivered with maternal pushing and gentle traction only in less than 15 seconds. The Pitocin infusion was initiated for active management of the third stage. The cord was clamped and cut [after 1 minute]. The infant was attended to by the waiting nursing staff. The placenta was delivered spontaneously and intact. The cervix and vagina were intact. Sponge and needle counts were correct. A vaginal sweep was completed by me. Gravure Press Operator was Jignesh Donahue MS3. Presentation: OLIVIER Placental Delivery Description: Spontaneous Placenta Disposition: [facility] Cord Vessel Description: 3 Vessels Cord Entanglement: None Drain: Faye to straight drain Estimated Blood Loss: 200 Infant A gender: Female Episiotomy Description: None Laceration: None Medications given after delivery: IV Pitocin Complications: None
[2020-03-13] MEDS: Naproxen 250 MG Tablet 500 MG PO (12:59)
[2020-03-13] MEDS: Acetaminophen 500 MG Tablet 1000 MG PO (20:10)
[2020-03-14 04:53] VITALS: BP 112/62; PULSE 81; RESP 18; TEMP 36.6
--- NOTE | 2020-03-14 08:43 | PCM.PN.OB ---
Subjective: Doing well per patient and nursing staff. Ambulating and taking PO without difficulty. Voiding and passing flatus. Bottle feeding. Denies chest pain, shortness of breath, increased vaginal bleeding or leg pain. Pain controlled. Planning D/C home today. - Physical Exam Vitals/I&O's: Vital Signs Temp Pulse Resp BP Pulse Ox 97.9 F 81 18 112/62 97 03/14/20 04:53 03/14/20 04:53 03/14/20 04:53 03/14/20 04:53 03/13/20 17:04 Oxygen Delivery Method Room Air Weight: 187 lb 12.8 oz Body Mass Index (BMI) 37.9 Finger Stick Blood Glucose 119 Intake and Output for Last 24 Hours 03/12/20 03/13/20 03/14/20 23:59 23:59 23:59 Intake Total 1179.77 / 1179.77 2865.69 / 2865.69 Output Total 450 / 450 2200 / 2200 Balance 729.77 / 729.77 665.69 / 665.69 General: Alert, Oriented x3, Cooperative HEENT: Atraumatic, Normocephalic Neck: Trachea Midline Lungs: Clear to auscultation, Normal air movement, No rhonchi, No wheeze Cardiovascular: Regular rate, Regular Rhythm, No murmurs Abdomen: Soft - fundus firm, 2 below U Extremities: No edema - aaliyah's negative Psych/Mental Status: Normal Affect, Appropriate Laboratory Results 03/13/20 13:40: Screen NEGATIVE, Baby's Blood Type A POSITIVE, Baby's ANDRIY NEGATIVE Current Medications Acetaminophen (Tylenol) 1,000 mg PO Q8H PRN PRN PRN Reason: Pain Score 1-3/10 Last Admin: 03/13/20 20:10 Dose: 1,000 mg Documented by: Bisacodyl (Dulcolax) 10 mg RECTAL UD PRN PRN Reason: If no BM Dibucaine (Dibucaine) 1 applic TOPICAL TID PRN PRN; Protocol PRN Reason: Discomfort Hydrocortisone (Hytone) 1 applic TOPICAL TID PRN PRN; Protocol PRN Reason: Discomfort Methylergonovine Maleate (Methergine) 0.2 mg IM X1 PRN PRN Reason: Excess bleeding/uterine atony Naproxen (Naprosyn) 500 mg PO Q8H PRN PRN PRN Reason: Pain Score 1-3/10 Last Admin: 03/13/20 12:59 Dose: 500 mg Documented by: Ondansetron HCl (Zofran) 4 mg IV Q4H PRN PRN PRN Reason: Nausea Prochlorperazine Edisylate (Compazine Iv) 10 mg IV Q6H PRN PRN PRN Reason: NAUSEA/VOMITING Senna/Docusate Sodium (Senokot-S, Gloria-Colace) 1 - 2 tablet PO DAILY PRN PRN PRN Reason: Constipation Simethicone (Mylicon) 80 mg PO PCHS PRN PRN Reason: Indigestion/Stomach pain Sodium Chloride () 5 - 15 ml IV UD PRN PRN Reason: SALINE FLUSH Medical Necessity - Tobacco Use Smoking Status: Former smoker Assessment/Plan All Active Problems No significant past medical history (Acute) Pelvic pressure in , antepartum (Acute) Back pain (Acute) A:PPD #1 P: 1) Routine care and discharge instructions. 2) Follow up in 2 weeks for virtual visit and 6 weeks for in office visit.
--- NOTE | 2020-03-14 08:46 | DCINST_ITS ---
Discharge Diet: No Restrictions Discharge Activity: Return to Normal Activity, May not drive while taking narcotic pain medications., May Shower May resume sexual activity in: 4-6 weeks Weight Bearing Status: Full weight bearing Additional Activity Instructions:: Nothing in the vagina for 4-6 weeks. You may return to work/school in 6 weeks. Call your doctor if your incision/area has: Continuous Slow Oozing, Sudden Increased Bleeding, Increased Pain/ Swelling, Increased Redness, Foul Smelling Discharge Call your doctor if you observe: Fever of 101 or Higher Additional Instructions: If you experience any of the following, contact your healthcare provider. * Bleeding that soaks a pad every hour for 2 hours * Fever 100.4 or higher * Unrelieved incision or abdominal pain * Swelling, redness, discharge or bleeding from your incision or episiotomy site * Your incision begins to separate * Problems urinating (including inability to urinate or burning while ur inating). * Visual changes * Severe headache * Flu-like symptoms * Pain or redness in one of both of your breasts * Pain, warmth, tenderness or swelling in your legs, especially the calf area * Frequent nausea and vomiting * Symptoms of depression or anxiety If you experience any of the following, call 911 or go to the nearest Emergency Room. * Chest pain * Problems breathing * Seizure activity * Partial or complete paralysis of a body part, slurred speech, weakness or drooping of the face, or a sudden inability to walk or hold your balance Allergies/Adverse Reactions: Allergies Sulfa (Sulfonamide Antibiotics) Allergy (Verified 08/12/19 19:56) Hives Medications to take at Discharge Vits [Prenatabs FA ] 1 tab PO DAILY 03/12/20 Please Follow Up With: Savanna Blank CNM When: Call to make an appointment with your doctor in 2 weeks virtual and 6 weeks. Primary Care Physician: Rekha Dunbar MD [Primary Care Provider] - Test Results: Test results from this visit will be discussed in further detail at your follow- up appointment, if applicable.
[2020-03-14 09:17] VITALS: BP 126/66; PULSE 75; RESP 16; TEMP 36.7; O2SAT 98
[2020-03-14 15:10] VITALS: BP 117/69; PULSE 71; RESP 16; TEMP 37.4; O2SAT 100
[2020-03-14] MEDS: Naproxen 250 MG Tablet 500 MG PO (15:22)
== END 2020-03-14 16:20 | disposition home or self-care (01) | DRG 807 ==
PROVIDERS: Admitting Provider Obstetrics & Gynecology; PCP Pediatrics; Visit Provider Obstetrics & Gynecology
DX: O75.89 Other specified complications of labor and delivery (principal); Z37.0 Single live birth; R10.2 Pelvic and perineal pain; Z3A.39 39 weeks gestation of pregnancy; Z87.891 Personal history of nicotine dependence
CPT/HCPCS: 59025; 59050; 85025; 85461; 86850; 86900; 86901; 90384; 99218; J7030; J7120; G0378; J2790

== ENCOUNTER 2020-05-13 14:57 | Emergency (ER) | payer BC, MEDICAID, SELFPAY ==
[2020-03-12 19:42] VITALS: BMI 37.9
[2020-05-13 14:58] VITALS: BP 117/71; PULSE 88; RESP 16; TEMP 36.1; O2SAT 100; BMI 32.3
--- NOTE | 2020-05-13 15:06 | ED.RN ---
PT STATES THAT SHE ON MY PERIOD SO NOT SURE IF THAT IS WHY MY STOMACH HURTS.
--- NOTE | 2020-05-13 16:02 | ED.DCSUM_ITS ---
- ER Visit Summary Date of Service: 05/13/20 Chief Complaint: Blood in stools History of Present Illness: The patient is a 19 F who presents with blood in her stools for the past 3 weeks. Patient states this has been constant. Patient states that sometimes it is red and sometimes it is dark. Patient states the blood is mixed with in her stools. Patient does admit to some mild lower abdominal pain. Patient states nothing makes it better or makes it worse. Patient denies any nausea or vomiting. Patient states she took her temperature at home and it was 99.5 however, other times she took it and it was 102 and 103. Patient does admit to a headache but denies any lightheadedness or dizziness. Physical Examination: Vital signs are stable. Patient is afebrile. Patient is in no acute distress. Oral mucosa is pink and moist. Neck is supple. Trachea is midline. There is no JVD noted. Heart was regular rate and rhythm. Lungs are clear and equal bilaterally. Abdomen is soft. Bowel sounds are normal. There is no tenderness. There is no rebound or guarding noted. Skin is warm dry. Cranial nerves II through XII are intact. There are no focal motor or sensory deficits noted. Extremities are intact. There is no calf tenderness or edema. Rectal exam showed good sphincter tone. There were some external hemorrhoids. There is no obvious blood noted. Stool is brown. There were no masses palpated. Test Results: CBC was within normal limits. Comprehensive metabolic profile was normal. Urinalysis does not show any evidence of urinary tract infection. Serum hCG was negative. Emergency Department Course and Treatment: Patient is feeling better on reevaluation. Patient was advised of her findings. Patient was instructed to follow-up with her primary care physician in 5 to 7 days. Patient was also advised she may need to see a surgeon or bleacher groundwood pulp for endoscopy. Patient understood and was agreeable with the plan. All questions were answered. Disposition: Discharge home Impression: 1. Rectal bleeding This note was generated with [employer] software. It may contain incorrect words, spelling, and punctuation that were not noted in review of the chart prior to signing ED Disposition - Plan for ED Patient: Disposition: Home or Assisted Living Diagnosis: Rectal bleeding Instructions: ED Hematochezia Stable Referrals: Rekha Dunbar MD [Primary Care Provider] - 3-5 Days
[2020-05-13 16:15] LABS: Bacteria 0 SEEN /hpf (None Seen); Red Blood Cells-Urine 0 SEEN /hpf (0-5)
[2020-05-13 16:20] LABS: Absolute Lymphocyte Count 0.94 X10^3/uL (0.83-4.51); Absolute Neutrophil Count 2.5 X10^3/uL (2.0-7.7); Basophil# 0.01 X10^3/uL; Basophil% 0.3 % (0-1); Eosinophil# 0.05 X10^3/uL; Eosinophils% 1.3 % (0-5); Hematocrit 39.4 % (37-47); Hemoglobin 12.7 g/dL (12.0-15.0); Lymphocyte # 0.94 X10^3/ul (4.0); Lymphocyte % 24.7 % (19-41); Mean Corp Hgb Conc 32.2 g/dL (32-36); Mean Corpuscular Hgb 28.7 pg (27.0-32.0); Mean Corpuscular Volume 89.1 fL (81-99); Monocyte# 0.35 X10^3/uL; Monocyte% 9.2 % (0-10); NRBC Flagged by Analyzer 0 % (0-5); Neutrophil # 2.45 X10^3/uL (2.7-7.7); Neutrophil % 64.5 % (47-70); Platelet Count 251 K/mm3 (150-450); RBC Distribution Width CV 12.5 % (11.6-14.6); Red Blood Count 4.42 M/mm3 (4.2-5.4); White Blood Count 3.8 K/mm3 (4.4-11.0)
[2020-05-13 16:42] LABS: ALB/GLOB Ratio 0.8 RATIO (0.9-2.4); AST(SGOT) 19 U/L (15-37); Alanine Aminotransfer ALT/SGPT 32 U/L (13-56); Albumin, Serum 3.5 g/dL (3.2-5.0); Alkaline Phosphatase 109 U/L (45-117); Anion Gap 4 (5-15); BUN 8 mg/dL (7-18); BUN/Creat Ratio 11.7 RATIO (10-20); Calcium,Total 8.7 mg/dL (8.5-10.1); Chloride 106 mmol/L (98-107); Creatinine, Serum 0.69 mg/dL (0.55-1.02); EST Glomerular Filtration Rate 116 mL/min (>60); Est Glom Filt Rate - Afr Amer 140 mL/min (>60); Estimated Creatinine Clearance 149.01 ml/min; Globulin 4.2 g/dL (2.2-4.2); Glucose 83 mg/dL (74-106); Potassium 3.4 mmol/L (3.5-5.1); Protein, Total 7.7 g/dL (6.4-8.2); Sodium Level 139 mmol/L (136-145)
[2020-05-13 16:56] LABS: Internal QC Validated? YES +Cl - CLEAR BKGD; Pregnancy, Serum, hCG Quali. NEGATIVE Negative
[2020-05-13 17:36] LABS: Color, Urine Yellow (Yellow); Glucose, Dipstick Normal (Normal); Ketone-Dipstick Negative (Negative); Leukocyte Esterase-Dipstick Negative /ul (Negative); Nitrite-Dipstick Negative (Negative); Occult Blood-Urine Negative /ul (Negative); Protein-Dipstick Negative (Negative); Specific Gravity, Urine 1.015 (1.002-1.030); Urine Bilirubin Dipstick Negative (Negative); Urine Clarity Sl. Cloudy (Clear); Urine Urobilinogen Normal (Normal); Urine pH 6.5 (5.0 - 8.0)
[2020-05-13 17:46] LABS: Squamous Epithelial Cells - UA 0-5 SEEN /hpf (5-10)
[2020-05-13 17:48] LABS: Mucous, Urine 2+ /hpf (<or=2+); White Blood Cells 0-5 SEEN /hpf (0-5)
[2020-05-13 18:39] VITALS: BP 113/57; PULSE 84; RESP 19; O2SAT 98
== END 2020-05-13 18:40 | disposition home or self-care (01) ==
PROVIDERS: Emergency Provider Emergency Medicine; PCP Pediatrics
DX: K62.5 Hemorrhage of anus and rectum (principal); R10.30 Lower abdominal pain, unspecified; R51 Headache
CPT/HCPCS: 80053; 81001; 82274; 84703; 85025; 99282; A4216

== ENCOUNTER 2020-11-08 17:04 | Emergency (ER) | payer BC, MEDICAID, SELFPAY ==
[2020-11-08 17:05] VITALS: BP 116/70; PULSE 118; RESP 16; TEMP 37.2; O2SAT 96; BMI 34.1
--- NOTE | 2020-11-08 17:20 | ED.DCSUM_ITS ---
History of Present Illness Chief Complaint: Abd Pain Informant: Patient, Significant Other Onset: Today Current Severity: Mild Maximum Severity: Moderate Narrative: Patient presents secondary to lower abdominal pain that radiates into her back. She states she woke this morning with pain in the suprapubic region. It does radiate around both sides and into her back. She does note dysuria and did have increased pain with straining for a bowel movement. She states she was supposed to start her menstrual cycle 4 days ago but it is late. She states there is a possibility of . She took some Tylenol for pain approximately 12 hours ago. Past Medical History - Allergies and Home Meds Allergies/Adverse Reactions: Allergies Sulfa (Sulfonamide Antibiotics) Allergy (Verified 05/13/20 14:59) Hives Primary Care Physician: Rekha Dunbar MD [Primary Care Provider] - 3-5 Days if not improving Prior records reviewed: Yes Surgical History: noncontributory Lives: Spouse/ Significant Other Smoking Status: Former smoker Review of Systems General: Denies: Chills, Fever Eyes: Denies: Visual changes - bilaterally ENT: Denies: Bilateral ear pain Cardiovascular: Denies: Chest pain, Palpitations Respiratory: Denies: Dyspnea, Cough Gastrointestinal: Reports: Abdominal pain. Denies: Vomiting, Diarrhea Genitourinary: Reports: Dysuria Musculoskeletal: Denies: Swelling, Extremity Pain Skin: Denies: Rash Neurological: Denies: Headache Hematologic: Denies: Easy bruising, Easy bleeding Allergy: Denies: Uticaria Physical Exam Vital Signs/Narrative: Vital Signs Temp Pulse Resp BP Pulse Ox 11/08/20 17:05 98.9 F 118 H 16 116/70 96 Inital Vital Signs reviewed: Yes General: Well nourished, Well developed Head: Normocephalic ENT: Moist mucous membranes Neck: Supple Cardiovascular: Regular rate, Regular rhythm Respiratory: No distress, CTA bilaterally Abdomen: Soft, Tender - Suprapubic tenderness to palpation.. Negative for: Guarding, Rebound tenderness Back: - - Mild tenderness in the low lumbar paraspinal muscles.. Negative for: CVA tenderness Extremities: Nontender Skin: Normal color, No rash Neurological: Alert, Oriented x3 Psychological: Normal affect Diagnostic/Tx/Re-eval Laboratory Results 11/08/20 17:37 Urine Color Yellow Urine Clarity Sl. Cloudy Urine pH 8.0 Ur Specific [place] 1.015 Urine Protein Negative Urine Glucose (UA) Normal Urine Ketones Negative Urine Occult Blood Negative Urine Nitrite Negative Urine Bilirubin Negative Urine Urobilinogen 1 H Ur Leukocyte Esterase 100 H Urine RBC 0 SEEN Urine WBC 5-10 SEEN Ur Squamous Epith Cells 5-10 SEEN Urine Bacteria 0 SEEN Urine Mucus 0 SEEN Urine Test Negative - Medical Decision Making Patient was given Tylenol for pain. Urinalysis shows no sign of infection or blood. test is negative. Test results discussed with patient and significant other at bedside. We discussed the possibility of a small kidney stone causing her symptoms that she does have pain rating to the flank region. I did discuss with them at this time I do not believe a CT scan to identify a kidney stone or not would significantly change her treatment. She would prefer to forego the CAT scan at this time. She will be given naproxen and [place] for pain. If her pain worsens in any way she will return and imaging can be obtained at that time. ED Disposition - Plan for ED Patient: Disposition: Home or Assisted Living Diagnosis: Flank pain Instructions: ED Flank Pain, Uncertain Cause Prescriptions: Naproxen [Naprosyn] 500 mg PO BID PRN PRN #20 tablet PRN Reason: Pain Score 4-10 Transmission Status: Received by [id number] Hydrocodone Bitart/Apap 5-325 [[place] 5MG-325MG] 1 tablet PO Q4H PRN PRN 2 Days #10 tab PRN Reason: Pain Transmission Status: Received by [id number] Referrals: Rekha Dunbar MD [Primary Care Provider] - 3-5 Days if not improving
[2020-11-08] MEDS: Acetaminophen 500 MG Tablet 1000 MG PO (17:24)
[2020-11-08 17:41] LABS: Bacteria 0 SEEN /hpf (None Seen); Mucous, Urine 0 SEEN /hpf (<or=2+); Red Blood Cells-Urine 0 SEEN /hpf (0-5)
[2020-11-08 18:09] LABS: Color, Urine Yellow (Yellow); Glucose, Dipstick Normal (Normal); Ketone-Dipstick Negative (Negative); Leukocyte Esterase-Dipstick 100 /ul (Negative); Nitrite-Dipstick Negative (Negative); Occult Blood-Urine Negative /ul (Negative); Protein-Dipstick Negative (Negative); Specific Gravity, Urine 1.015 (1.002-1.030); Urine Bilirubin Dipstick Negative (Negative); Urine Clarity Sl. Cloudy (Clear); Urine Urobilinogen 1 mg/dl (Normal)
[2020-11-08 18:10] LABS: Internal QC Validated? YES +Cl - CLEAR BKGD
[2020-11-08 18:11] LABS: Pregnancy, Urine Negative Negative
[2020-11-08 18:15] LABS: Squamous Epithelial Cells - UA 5-10 SEEN /hpf (5-10); White Blood Cells 5-10 SEEN /hpf (0-5)
[2020-11-08 19:12] VITALS: BP 122/83; PULSE 112; RESP 14; O2SAT 98
== END 2020-11-08 19:13 | disposition home or self-care (01) ==
PROVIDERS: Emergency Provider Emergency Medicine; PCP Pediatrics
DX: R10.30 Lower abdominal pain, unspecified (principal); R30.0 Dysuria; Z87.891 Personal history of nicotine dependence
CPT/HCPCS: 81001; 81025; 99282

== ENCOUNTER 2021-04-14 21:19 | Emergency (ER) | payer BC, MEDICAID, SELFPAY ==
[2021-04-14 21:20] VITALS: BP 124/70; PULSE 77; RESP 16; TEMP 35.9; O2SAT 97; BMI 31.2
--- NOTE | 2021-04-14 22:36 | ED.VIS.LOWEX ---
HPI History of Present Illness Chief Complaint: Bite Narrative Narrative: Patient presenting for evaluation due to concern for some bite wounds on her right thigh. Patient states that these have been present for a couple of days now. She reports that they are very itchy, and when she scratches them they tend to burn. She states she has not had constitutional symptoms such as fever. She states that having these bite wounds on her legs caused her to have a panic attack. Patient did not see what actually bit her. She denies any history of immunosuppression. She denies any history of severe anaphylactic reactions to bug bites. She has not tried any [id number] regimens for this. Review of systems otherwise negative. PFSH PFSH Home Medications hydrocortisone [Cortisone (hydrocortisone)] 1 applic TOPICAL TID PRN #28.35 g 04/14/21 [Rx Last Taken Unknown] Allergy/AdvReac Type Severity Reaction Status Date / Time Sulfa (Sulfonamide Allergy Hives Verified 04/14/21 21:23 Antibiotics) Social History Smoking Status: Never smoker ROS ROS ED Constitutional Constitutional ED: Denies fever(s) ENT ENT ED: Denies sore throat Cardiovascular Cardiovascular: Denies chest pain Respiratory/Chest Respiratory/Chest: Denies cough or dyspnea Gastrointestinal Gastrointestinal: Denies nausea or vomiting Musculoskeletal Musculoskeletal: Denies myalgias Integumentary Reports rash Neurologic Neurologic: Denies paresthesias or weakness Psychiatric Psychiatric: Reports anxiety Hematologic/Lymphatic Hematologic/Lymphatic: Denies easy bleeding or easy bruising EXAM Physical Exam Const Vital Signs: 04/14/21 21:20 04/14/21 22:13 Temperature 96.6 F L Temperature Source Temporal Pulse Rate 77 Respiratory Rate 16 Respiratory Pattern Normal Blood Pressure 124/70 H Blood Pressure Mean 88 Pulse Ox 97 Oxygen Delivery Method Room Air Positive well nourished and well developed General Appearance ED: well developed HEENT HEENT Narrative: No evidence of lip or tongue swelling oropharynx is clear and moist normocephalic and atraumatic Neck full ROM and supple Chest Wall inspection of chest normal Resp normal respiratory effort and clear to auscultation bilaterally Cardio regular rate, regular rhythm and no murmurs Cardio Narrative: 2+ radial pulses bilaterally symmetric GI non-tender Palpation: soft Extremity Extremity Narrative: Examination of patient's right thigh shows 2 areas over the anterolateral right thigh consistent with the patient's bite wounds. They are circular hypersensitivity rashes that appear like urticaria with a central bite wounds, they are not targetoid. They are indurated there is no signs of fluctuance. There is no signs of lymphangitic streaking. They are not tender to palpation. There is no subcutaneous emphysema. Neuro oriented x3 Sensorium / Orientation: alert Psych mental status grossly normal Skin Skin Narrative: See above MDM MDM MDM Narrative Medical decision making narrative: Patient presented with a local hypersensitivity reaction to a likely insect bite. She does not have any evidence of systemic disease. Patient be treated with topical cortisone. Discharge Plan Triage Chief Complaint: Bite ED Provider: Jose Delacruz Dx/Rx/DC Orders Clinical Impression: Bug bite without infection Instructions: ED Insect Bite Prescriptions: New hydrocortisone [Cortisone (hydrocortisone)] 1 % cream 1 applic topical TID PRN (Reason: itching) Qty: 28.35 RF: 0 Primary Care Provider: Rekha Dunbar Referrals: Rekha Dunbar MD [Primary Care Provider] - As Needed Disposition Disposition: Home, Self Care
== END 2021-04-14 22:49 | disposition home or self-care (01) ==
PROVIDERS: Emergency Provider Emergency Medicine
DX: S70.361A Insect bite (nonvenomous), right thigh, initial encounter (principal); W57.XXXA Bitten or stung by nonvenomous insect and other nonvenomous arthropods, initial encounter
CPT/HCPCS: 99282

== ENCOUNTER 2021-12-20 14:10 | Outpatient (CLI) | payer BC, MEDICAID, SELFPAY ==
[2021-12-20 14:22] VITALS: TEMP 36.2
[2021-12-20 14:23] VITALS: BP 103/59; PULSE 88
[2021-12-20 14:28] VITALS: BMI 37.0
[2021-12-20 15:15] LABS: ROM Internal Control Test YES-OK TO RESULT pt. (Internal QC); ROM Patient Test Negative (Negative)
--- NOTE | 2021-12-20 20:06 | OB.TRI.NOTE ---
HPI - General HPI Narrative JHON CAMACHO, is a 20 F at 38.6 weeks gestation who presents to triage with loss of fluid. She reports loosing mucus plug yesterday and continues to leak fluid and mucus. Denies vaginal bleeding. Positive movement and positive for irregular contractions. Maternal Data Information MICA Calculator Estimated Delivery Date Method Current WG Current Estimate 12/28/21 Manual 38w 6d PFSH PFSH Home Medications ferrous sulfate [iron] 325 mg PO DAILY 12/20/21 [History Last Taken Unknown] Allergy/AdvReac Type Severity Reaction Status Date / Time Sulfa (Sulfonamide Allergy Hives Verified 04/14/21 21:23 Antibiotics) Social History Smoking Status: Never smoker History Elective abortions Hx Para 1 Spontaneous abortions Hx # Term Pregnancies Ectopic pregnancies Hx # Pregnancies Multiple births # of living children ROS Eyes Eyes: Denies blurry vision Cardiovascular Cardiovascular: Reports none; Denies chest pain at rest, chest pain with activity or dizziness Respiratory/Chest Respiratory/Chest: Denies cough or dyspnea Gastrointestinal Gastrointestinal: Reports none and other; Denies diarrhea or vomiting Genitourinary Genitourinary: Denies dysuria Musculoskeletal Musculoskeletal: Reports none Integumentary Integumentary: Reports none; Denies rash Neurologic Neurologic: Denies dizziness, headache(s) or other visual disturbances Psychiatric Psychiatric: Reports none Physical Exam Const alert and no apparent distress General Appearance: cooperative Orientation / Consciousness: awake Exam Limitations: no limitations HEENT normocephalic Eyes General Eye: normal appearance of both eyes Neck full ROM Chest inspection of chest normal Resp normal respiratory effort and normal air movement Effort and Inspection: symmetric chest movement Auscultation: clear to auscultation bilaterally Cardio regular rate GI soft to palpation, non-tender and non-distended Inspection: and other Back/Spine normal ROM Extremity full ROM, normal capillary refill and no calf tenderness Skin no rashes or lesions noted Neuro oriented x3 and CN's II-XII intact bilaterally Psych mental status grossly normal NST FHR Rate Baby A Baseline: 135 Variability:: Moderate Accelerations:: 15 x 15 Decelerations:: None NST Reactive:: Yes FHR Category:: Category I Uterine Activity:: 2-6 Assessment & Plan (1) 38 weeks gestation of : (2) Leakage of amniotic fluid: PLAN: ROM plus- negative CE- 2cm/high and posterior No cervical change after 1-2 hours of monitoring D/C home with follow up in office
== END 2021-12-20 16:00 | disposition home or self-care (01) ==
LOC: WPOUT 14:14 → WP 14:14
PROVIDERS: Referring Provider Advanced Practice Midwife; Visit Provider Advanced Practice Midwife
DX: O42.92 Full-term premature rupture of membranes, unspecified as to length of time between rupture and onset of labor (principal); Z3A.38 38 weeks gestation of pregnancy
CPT/HCPCS: 59025; 59050; 84112; 99218; G0378

== ENCOUNTER 2021-12-23 07:00 | Inpatient (IN) | payer BC, MEDICAID, SELFPAY ==
[2021-12-23] VITALS (43 sets, daily range): BP systolic 94–132; BP diastolic 46–81; PULSE 57–142; RESP 18; TEMP 36.8–37.1; O2SAT 86–100; BMI 36.9
[2021-12-23] MEDS: Lactated Ringers 1,000 ML 50 ML IV (07:50)
[2021-12-23] MEDS: Oxytocin 30 units/NS 500 ml 30 UNITS/500 ML IV.SOLN IV (08:05)
[2021-12-23 08:17] LABS: Absolute Lymphocyte Count 1.91 X10^3/uL (0.83-4.51); Absolute Neutrophil Count 5.5 X10^3/uL (2.0-7.7); Basophil# 0.02 X10^3/uL; Basophil% 0.2 % (0-1); Eosinophil# 0.08 X10^3/uL; Eosinophils% 0.9 % (0-5); Hematocrit 33.9 % (37-47); Hemoglobin 10.7 g/dL (12.0-15.0); Lymphocyte # 1.91 X10^3/ul (0.83-4.51); Lymphocyte % 22.6 % (19-41); Mean Corp Hgb Conc 31.6 g/dL (32-36); Mean Corpuscular Hgb 26.7 pg (27.0-32.0); Mean Corpuscular Volume 84.5 fL (81-99); Mean Platelet Vol. 11.2 fl (6.2-12.0); Monocyte# 0.85 X10^3/uL; Monocyte% 10.1 % (0-10); NRBC Flagged by Analyzer 0 % (0-5); Neutrophil # 5.54 X10^3/uL (2.7-7.7); Neutrophil % 65.6 % (47-70); Platelet Count 236 K/mm3 (150-450); RBC Distribution Width SD 46.5 fl (35.1-43.9); Red Blood Count 4.01 M/mm3 (4.2-5.4); White Blood Count 8.5 K/mm3 (4.4-11.0)
--- NOTE | 2021-12-23 12:06 | PCM.PN.BLA ---
Progress Note AROM performed- Clear fluid. /-2 IUPC placed.
[2021-12-23] MEDS: fentaNYL-bupivacaine (epidural) 100 ML BAG EPIDURAL (13:33)
[2021-12-23] MEDS: Lactated Ringers 1,000 ML 999 ML IV (13:37)
[2021-12-23] MEDS: Oxytocin 30 units/NS 500 ml 30 UNITS/500 ML IV.SOLN 334 UNITS IV (14:22)
--- NOTE | 2021-12-23 14:38 | EX.PCM.OBRPT ---
Assessment & Plan (1) 39 weeks gestation of : (2) Failed induction of labor: (3) Supervision of other normal : Maternal Data Information MICA Calculator Estimated Delivery Date Method Current WG Current Estimate 12/28/21 Manual 39w 2d Final MICA: 12/28/21 Gestational age: 39 2/7 Vaginal Delivery Maternal Presentation Maternal Presentation: Elective Induction Type of Induction: Pitocin and Amniotomy Operative Information Date of Procedure: 12/23/21 Pre-Operative Diagnosis: labor Post-Operative Diagnosis: same Surgery / Procedure Performed: Spontaneous Vaginal Delivery Type of Anesthesia: Epidural Special Medications: none Drain: Faye to straight drain Estimated Blood Loss: 300 Time of Delivery: 14:19 Findings Description of Procedure: A vigorous male infant was delivered [OLIVIER] over a small first-degree perineal abrasion. The remainder the was delivered with maternal pushing and gentle traction only in less than 30 seconds. The shoulders were not delivered more quickly due to insufficient maternal pushing strength. The Pitocin infusion was initiated for active management of the third stage. The cord was clamped and cut [after 1 minute]. The was attended to by the waiting nursing staff. The placenta was delivered spontaneously and intact. The cervix and vagina were intact. Small first-degree perineal laceration was hemostatic and not repaired sponge and needle counts were correct. A vaginal sweep was completed by me. Presentation: MAXWELL Amniotic Membrane Rupture Type: Artificial Amniotic Fluid Description: Clear Placental Delivery Description: Spontaneous Placenta Disposition: [facility] Cord Vessel Description: 3 Vessels Cord Entanglement: None A Gender: Male (Basurto) (1 minute): 9 (5 minute): 9 Delayed Cord Clamping: Yes Post Vaginal Delivery Medications Given After Delivery: IV Pitocin Episiotomy Description: None Laceration: 1st degree Complication Complications: None Admit VTE Documentation VTE Present on Admission: No VTE Pharm Prophylaxis Ordered: No Reason Prophylaxis Not Ordered: Procedure Not Indicated
--- NOTE | 2021-12-23 14:42 | HP.PCM.OB_ITS ---
HPI - General General Date of Admission: 12/23/21 Date of Service: 12/23/21 Chief Complaint: megan aguirre HPI Narrative JHON CAMACHO, is a 20-year-old 3 para 2-0-0-2 presents at 39-2/7 weeks gestation for elective induction of labor due to favorable cervix and maternal discomfort. She denies any vaginal bleeding or leaking of fluid. She is had a regular contractions. She is had 2 previous vaginal deliveries without complications. Past medical history is significant for history of chlamydia, and anemia. Past surgical history significant for colonoscopy, EGD hysteroscopy Maternal Data Information MICA Calculator Estimated Delivery Date Method Current WG Current Estimate 12/28/21 Manual 39w 2d [facility] Medical History (Updated 12/23/21 @ 14:[address] Shana Mcgrath MD) Anxiety Chlamydia infection affecting Endometritis Heart murmur HPV (human papilloma virus) infection Normal colonoscopy Normal esophagogastroduodenoscopy (EGD) Home Medications ferrous sulfate [iron] 325 mg PO QODAY 12/20/21 [History Last Taken 12/19/21 14:00 1 tablet] Allergy/AdvReac Type Severity Reaction Status Date / Time Sulfa (Sulfonamide Allergy Hives Verified 04/14/21 21:23 Antibiotics) Social History Smoking Status: Former smoker History Elective abortions Hx Para 2 Spontaneous abortions Hx # Term Pregnancies Ectopic pregnancies Hx # Pregnancies Multiple births # of living children ROS Constitutional Constitutional: Denies fatigue, fever(s) or malaise Eyes Eyes: Denies change in vision ENT HEENT: Denies dizziness or headache(s) Cardiovascular Cardiovascular: Denies chest pain, dyspnea or lightheadedness Respiratory/Chest Respiratory/Chest: Denies cough or dyspnea Gastrointestinal Gastrointestinal: Denies change in bowel habits Genitourinary Genitourinary: Denies burning urination or genital lesions Integumentary Integumentary: Denies rash Neurologic Neurologic: Denies confusion, dizziness, headache(s), numbness or weakness Vital Signs Vital Signs Vital Signs: 12/23/21 07:21 12/23/21 07:22 12/23/21 07:27 Temperature 98.5 F Temperature Source Temporal Pulse Rate 90 78 69 Blood Pressure 111/77 BP Systolic 111 BP Diastolic 77 Pulse Ox 97 99 05/11/22 08:37 12/23/21 08:39 12/23/21 09:50 Temperature 98.7 F 98.3 F Temperature Source Temporal Temporal Pulse Rate 73 Blood Pressure 107/61 107/61 BP Systolic 107 107 BP Diastolic 61 61 Pulse Ox 99 98 12/23/21 09:51 12/23/21 10:53 12/23/21 10:54 Temperature 98.5 F Temperature Source Temporal Pulse Rate 88 82 Blood Pressure 106/56 L 98/63 BP Systolic 106 98 BP Diastolic 56 63 Pulse Ox 96 12/23/21 12:11 12/23/21 13:08 12/23/21 13:09 Temperature 98.2 F Temperature Source Temporal Pulse Rate 68 89 93 Blood Pressure 117/67 132/61 H BP Systolic 117 132 BP Diastolic 67 61 Pulse Ox 98 100 12/23/21 13:13 12/23/21 13:18 12/23/21 13:23 Temperature Temperature Source Pulse Rate 96 92 88 Blood Pressure 118/58 L 122/60 H 114/63 BP Systolic 118 122 114 BP Diastolic 58 60 63 Pulse Ox 100 100 100 12/23/21 13:28 12/23/21 13:33 12/23/21 13:34 Temperature 98.5 F Temperature Source Temporal Pulse Rate 81 83 81 Blood Pressure 114/55 L 116/57 L BP Systolic 114 116 BP Diastolic 55 57 Pulse Ox 100 100 12/23/21 13:38 12/23/21 13:39 12/23/21 13:43 Temperature Temperature Source Pulse Rate 82 96 Blood Pressure 109/57 L 104/56 L BP Systolic 109 104 BP Diastolic 57 56 Pulse Ox 100 100 12/23/21 14:02 12/23/21 14:18 12/23/21 14:32 Temperature Temperature Source Pulse Rate 109 H 142 H 91 Blood Pressure 123/64 H 127/77 H 126/81 H BP Systolic 123 127 126 BP Diastolic 64 77 81 Pulse Ox 12/23/21 14:36 Temperature Temperature Source Pulse Rate 103 H Blood Pressure BP Systolic BP Diastolic Pulse Ox 98 Weight Weight: 85.786 kg Body Mass Index (BMI) 36.9 Physical Exam Const alert and no apparent distress General Appearance: cooperative HEENT normocephalic Resp normal respiratory effort Cardio regular rate GI soft to palpation GI Narrative: gravid, nontender, appropriate for gestational age Extremity no calf tenderness General Extremity: edema Skin no wounds Rashes: No rashes noted Psych activity/motor behavior normal Labs Labs Labs: Blood Type AB NEGATIVE Antibody Screen NEGATIVE Hct 33.9 % (37-47) L Hgb 10.7 g/dL (12.0-15.0) L Obstetrics US VZV IgG Antibody 297 index (Immune >165) Rubella IgG Antibody 201.1 IU/mL Hep Bs Antigen Negative (Negative) Glucose 1 Hr 50 gm 142 mg/dL (70-140) H Group B Strep DNA Negative (Negative) Rhogam given: Yes Assessment & Plan (1) Supervision of other normal : PLAN: Patient plans for elective induction of labor due to maternal discomfort. Risk benefits and alternatives to induction of labor were discussed with patient, questions were answered to her satisfaction she desires to proceed. Estimated weight is less than 5000 g clinically and pelvis clinically adequate to expect vaginal delivery. We will proceed with Pitocin and artificial rupture of membranes as needed. May use available pain control options as needed. (2) 39 weeks gestation of :
[2021-12-23] MEDS: Acetaminophen 500 MG Tablet 1000 MG PO ×2 (16:20→22:46)
[2021-12-23] MEDS: Ibuprofen 600 MG Tablet PO (19:55)
[2021-12-24] VITALS (12 sets, daily range): BP systolic 98–114; BP diastolic 52–59; PULSE 63–172; RESP 16–18; TEMP -12.7–36.9; O2SAT 82–99
[2021-12-24] MEDS: Ibuprofen 600 MG Tablet PO ×3 (02:21→18:55)
[2021-12-24 06:07] LABS: Hematocrit 31.7 % (37-47); Hemoglobin 10.1 g/dL (12.0-15.0); Mean Corp Hgb Conc 31.9 g/dL (32-36); Mean Corpuscular Hgb 27.2 pg (27.0-32.0); Mean Corpuscular Volume 85.2 fL (81-99); Mean Platelet Vol. 11.1 fl (6.2-12.0); Platelet Count 226 K/mm3 (150-450); RBC Distribution Width SD 47.1 fl (35.1-43.9); Red Blood Count 3.72 M/mm3 (4.2-5.4); White Blood Count 9.8 K/mm3 (4.4-11.0)
--- NOTE | 2021-12-24 07:42 | NURSING ---
report given to Juan Diego who is assuming care of pt at this time
--- NOTE | 2021-12-24 08:08 | PCM.PN.OB ---
Subjective Subjective Patient seen at bedside. Feeling good. Denies any pain. Ambulating and voiding without difficulty. Lochia decreasing. Bottle feeding . Desires discharge home today. Objective Data Objective Data Vital Signs: Vital Signs Temp Pulse Resp BP Pulse Ox 97.7 F L 80 16 104/59 L 96 12/24/21 04:40 12/24/21 04:42 12/24/21 04:40 12/24/21 04:42 12/24/21 04:40 Oxygen Delivery Method Room Air Weight: 189 lb 2 oz Body Mass Index (BMI) 36.9 Intake & Output: Intake and Output for Last 24 Hours 12/22/21 12/23/21 12/24/21 23:59 23:59 23:59 Intake Total 2336.59 / 2336.59 Output Total 1550 / 1550 Balance 786.59 / 786.59 Lab / Micro Data Result Diagrams: 12/24/21 05:55 Labs: Laboratory Results - last 24 hr 12/23/21 07:50: WBC 8.5, RBC 4.01 L, Hgb 10.7 L, Hct 33.9 L, MCV 84.5, MCH 26.7 L, MCHC 31.6 L, RDW Std Deviation 46.5 H, RDW Coeff of Jane 15.0 H, Plt Count 236, MPV 11.2, Immature Gran % (Auto) 0.600, Neut % (Auto) 65.6, Lymph % (Auto) 22.6, Esmeralda % (Auto) 10.1 H, Eos % (Auto) 0.9, Baso % (Auto) 0.2, Absolute Neuts (auto) 5.5, Absolute Lymphs (auto) 1.91, Nucleated RBC % 0 12/23/21 07:50: Blood Type AB NEGATIVE, Antibody Screen NEGATIVE 12/24/21 05:55: WBC 9.8, RBC 3.72 L, Hgb 10.1 L, Hct 31.7 L, MCV 85.2, MCH 27.2, MCHC 31.9 L, RDW Std Deviation 47.1 H, RDW Coeff of Jane 15.0 H, Plt Count 226, MPV 11.1 12/24/21 05:55: Screen NEGATIVE, Baby's Blood Type B POSITIVE, Baby's ANDRIY NEGATIVE ROS Eyes Eyes: Denies blurry vision, change in vision or spots in vision ENT HEENT: Denies dizziness or headache(s) Cardiovascular Cardiovascular: Denies abdominal pain, chest pain or dyspnea Respiratory/Chest Respiratory/Chest: Denies cough, dyspnea, shortness of breath at rest or shortness of breath with exertion Gastrointestinal Gastrointestinal: Denies abdominal pain, diarrhea or vomiting Genitourinary Genitourinary: Denies change in urinary stream, difficulty urinating or dysuria Musculoskeletal Musculoskeletal: Reports none Integumentary Integumentary: Denies rash Neurologic Neurologic: Denies dizziness, headache(s), memory loss or weakness Physical Exam Const alert and no apparent distress General Appearance: cooperative and comfortable Exam Limitations: no limitations HEENT normocephalic Eyes General Eye: normal appearance of both eyes Neck full ROM General: normal visual inspection Chest Chest: symmetrical chest wall rise Resp normal respiratory effort and normal air movement Effort and Inspection: symmetric chest movement Auscultation: clear to auscultation bilaterally Cardio regular rate and regular rhythm GI normal to inspection, nondistended, normoactive bowel sounds Back/Spine normal ROM Extremity full ROM and no calf tenderness General Extremity: normal exam except as noted Skin no rashes or lesions noted Neuro CN's II-XII intact bilaterally Psych mental status grossly normal Assessment & Plan (1) (spontaneous vaginal delivery): PLAN: PPD 1 - intact Routine care Pain control D/C home with follow up in office
--- NOTE | 2021-12-24 08:12 | PCM.DC ---
Discharge Instructions Diet Discharge Diet: No restrictions Activity May resume sexual activity in: 6-8 weeks Weight Bearing Status: Weight bearing as tolerated Dressing / Incision Call your doctor if you observe: Fever of 101 or Higher, Inability to urinate, Using more than 1 pad per hour, Shortness of breath, Chest pain, Calf discomfort and Uncontrolled pain Follow Up Care When: 2 weeks virtual visit/ 6 weeks in office Test Results: Test results from this visit will be discussed in further detail at your follow-up appointment, if applicable. Discharge Plan Admission Admit Date/Time: 12/23/21 07:00 Primary Reason for Your Visit: Labor and delivery Attending Provider: Shana Mcgrath Primary Care Provider: Care Physician,Charity Primary Discharge Orders/Prescriptions Prescriptions: Continued ferrous sulfate [iron] 325 mg (65 mg iron) Tablet 325 mg PO QODAY RF: 0 Referrals / Follow Up: Care Physician,No Primary [Primary Care Provider] - Disposition Disposition (needs filled in before D/C Order can be placed): Home, Self Care
[2021-12-24] MEDS: Acetaminophen 500 MG Tablet 1000 MG PO ×3 (09:46→21:31)
[2021-12-25] VITALS (11 sets, daily range): BP systolic 105–121; BP diastolic 56–76; PULSE 60–83; RESP 14–16; TEMP 36.1–37.1; O2SAT 97–99
[2021-12-25] MEDS: Acetaminophen 500 MG Tablet 1000 MG PO ×2 (04:35→12:58)
--- NOTE | 2021-12-25 07:13 | PN.OBGYN_ITS ---
Subjective Subjective Patient seen at bedside. Cancelled discharge last night due to baby receiving IV antibiotics for tachypnea. Patient feeling good. Anxious to go home and see other children. Denies any pain. Lochia minimal. Objective Data Objective Data Vital Signs: Vital Signs Temp Pulse Resp BP Pulse Ox 97 F L 63 14 112/72 98 12/25/21 04:36 12/25/21 04:38 12/25/21 04:36 12/25/21 04:38 12/25/21 04:36 Oxygen Delivery Method Room Air Weight: 189 lb 2 oz Body Mass Index (BMI) 36.9 Intake & Output: Intake and Output for Last 24 Hours 12/23/21 12/24/21 12/25/21 23:59 23:59 23:59 Intake Total 2336.59 / 2336.59 Output Total 1550 / 1550 Balance 786.59 / 786.59 Lab / Micro Data Result Diagrams: 12/24/21 05:55 ROS Eyes Eyes: Denies blurry vision, change in vision or spots in vision ENT HEENT: Denies dizziness or headache(s) Cardiovascular Cardiovascular: Denies abdominal pain, chest pain or dyspnea Respiratory/Chest Respiratory/Chest: Denies cough, dyspnea, shortness of breath at rest or shortn ess of breath with exertion Gastrointestinal Gastrointestinal: Denies abdominal pain, diarrhea or vomiting Genitourinary Genitourinary: Denies change in urinary stream, difficulty urinating or dysuria Musculoskeletal Musculoskeletal: Reports none Integumentary Integumentary: Denies rash Neurologic Neurologic: Denies dizziness, headache(s), memory loss or weakness Physical Exam Const alert and no apparent distress General Appearance: cooperative and comfortable Exam Limitations: no limitations HEENT normocephalic Eyes General Eye: normal appearance of both eyes Neck full ROM General: normal visual inspection Chest Chest: symmetrical chest wall rise Resp normal respiratory effort and normal air movement Effort and Inspection: symmetric chest movement Auscultation: clear to auscultation bilaterally Cardio regular rate and regular rhythm GI normal to inspection, nondistended, normoactive bowel sounds Back/Spine normal ROM Extremity full ROM and no calf tenderness General Extremity: normal exam except as noted Skin no rashes or lesions noted Neuro CN's II-XII intact bilaterally Psych mental status grossly normal Assessment & Plan (1) (spontaneous vaginal delivery): PLAN: PPD 2 Routine care Bottle feeding D/C home with follow up in office
--- NOTE | 2021-12-25 07:16 | PCM.DC ---
Discharge Instructions Diet Discharge Diet: No restrictions Activity May resume sexual activity in: 6-8 weeks Weight Bearing Status: Weight bearing as tolerated Dressing / Incision Call your doctor if you observe: Fever of 101 or Higher, Inability to urinate, Using more than 1 pad per hour, Shortness of breath, Chest pain, Calf discomfort and Uncontrolled pain Follow Up Care Test Results: Test results from this visit will be discussed in further detail at your follow-up appointment, if applicable. Discharge Plan Admission Admit Date/Time: 12/23/21 07:00 Primary Reason for Your Visit: Labor and delivery Attending Provider: Shana Mcgrath Primary Care Provider: Care Physician,Charity Primary Discharge Orders/Prescriptions Prescriptions: Continued ferrous sulfate [iron] 325 mg (65 mg iron) Tablet 325 mg PO QODAY RF: 0 Referrals / Follow Up: Care Physician,No Primary [Primary Care Provider] - Disposition Disposition (needs filled in before D/C Order can be placed): Home, Self Care
--- NOTE | 2021-12-25 11:30 | NURSING ---
Bedside report given to Roxy Riley RN
== END 2021-12-25 18:05 | disposition home or self-care (01) | DRG 807 ==
PROVIDERS: Admitting Provider Obstetrics & Gynecology; Referring Provider Obstetrics & Gynecology; Visit Provider Obstetrics & Gynecology
DX: O61.8 Other failed induction of labor (principal); Z37.0 Single live birth; O70.0 First degree perineal laceration during delivery; Z3A.39 39 weeks gestation of pregnancy; Z87.891 Personal history of nicotine dependence
CPT/HCPCS: 59025; 59050; 85025; 85027; 85461; 86850; 86900; 86901; 90384; 99218; J7120; G0378; J2790

== ENCOUNTER 2023-02-07 15:34 | Emergency (ER) | payer BC, MEDICAID, SELFPAY ==
[2023-02-07 15:35] VITALS: BP 92/53; PULSE 73; RESP 18; TEMP 35.8; O2SAT 97; BMI 24.6
[2023-02-07 17:46] LABS: Bacteria 0 SEEN /hpf (None Seen); Red Blood Cells-Urine 0 SEEN /hpf (0-5); Squamous Epithelial Cells - UA 0 SEEN /hpf (5-10)
[2023-02-07 17:52] LABS: Color, Urine Yellow (Yellow); Glucose, Dipstick 50 mg/dl (Normal); Ketone-Dipstick Negative (Negative); Leukocyte Esterase-Dipstick Negative /ul (Negative); Nitrite-Dipstick Negative (Negative); Occult Blood-Urine Negative /ul (Negative); Protein-Dipstick 15 mg/dl (Negative); Urine Bilirubin Dipstick Negative (Negative); Urine Clarity Clear (Clear); Urine Urobilinogen Normal (Normal)
[2023-02-07 17:54] LABS: Hematocrit 32.6 % (37-47); Hemoglobin 10.6 g/dL (12.0-15.0)
[2023-02-07 18:12] LABS: Mucous, Urine RARE /hpf (<or=2+); Transitional Epithelial - Ur 0-5 SEEN /hpf (0-5); White Blood Cells 0-5 SEEN /hpf (0-5)
--- NOTE | 2023-02-07 18:43 | ED.VIS.FEGU ---
HPI HPI - Female History of Present Illness Chief Complaint: Vag Bld, Preg Informant: patient Narrative Narrative: Patient is a 22-year-old female G4, P3 currently 11 weeks with confirmed intrauterine gestation presenting with vaginal bleeding. Patient's BLIND INSTALLER is Dr. Mcgrath. She states this afternoon started having cramps and went to the bathroom. She notes of blood in the toilet and a small clot. She had to wipe twice and there was dark red blood on the toilet paper. When she went to the bathroom again here she did not have any significant bleeding. She last had intercourse yesterday. Her due date is August 31. Patient denies any other complaints or concerns at this time. [facility] Medical History Anxiety Chlamydia infection affecting Endometritis Heart murmur HPV (human papilloma virus) infection Normal colonoscopy Normal esophagogastroduodenoscopy (EGD) (spontaneous vaginal delivery) Home Medications ferrous sulfate 325 mg (65 mg iron) tablet (iron) 325 mg PO QODAY Check with primary doctor 12/20/21 [History Last Taken 12/19/21 14:00 1 tablet] Allergy/AdvReac Type Severity Reaction Status Date / Time Sulfa (Sulfonamide Allergy Hives Verified 02/07/23 15:37 Antibiotics) Social History Smoking Status: Former smoker ROS ROS ED Constitutional Constitutional ED: Denies chills or fever(s) Respiratory/Chest Respiratory/Chest: Denies cough Gastrointestinal Gastrointestinal: Denies abdominal pain, nausea or vomiting Genitourinary Genitourinary ED: Reports other Details: Vaginal bleeding, mild pelvic cramping ; Denies dysuria, hematuria or urinary frequency Musculoskeletal Musculoskeletal: Denies arthralgias Integumentary Denies rash Neurologic Neurologic: Denies weakness Psychiatric Psychiatric: Denies anxiety Hematologic/Lymphatic Hematologic/Lymphatic: Denies easy bleeding or easy bruising EXAM Physical Exam Const Vital Signs: 02/07/23 15:35 Temperature 96.5 F L Temperature Source Temporal Pulse Rate 73 Respiratory Rate 18 Blood Pressure 92/53 L Blood Pressure Mean 66 Pulse Ox 97 Oxygen Delivery Method Room Air Positive well nourished and well developed General Appearance ED: well developed and NAD HEENT Reports moist mucous membranes Eyes PERRL and EOMs intact bilaterally Neck supple Chest Wall inspection of chest normal and palpation of chest normal Resp normal respiratory effort and clear to auscultation bilaterally GI normal to inspection, nondistended, normoactive bowel sounds, soft to palpation and non-tender Extremity normal to inspection Neuro oriented x3 Psych mental status grossly normal Mood & Affect: anxious Skin no rashes or lesions noted MDM MDM MDM Narrative Medical decision making narrative: Patient evaluated for vaginal bleeding for trimester . Chart view shows that patient is AB-. Will administer RhoGAM. Urinalysis in the ER is negative for blood with only 0-5 white blood cells and not consistent with infection. She does have some glucose and protein in her urine which will need to be followed up with her BLIND INSTALLER. Bedside ultrasound performed myself shows a single live intrauterine gestation with heart tones of 163 and visualized movement. Do not appreciate any free fluid in the pelvis. I spoke with Lance Davis, airfreight loading supervisor on-call.She recommends outpatient follow-up this week. No further recommendations at this time as there is no intervention available. Patient counseled that this is a [id number] situation as no intervention is available. Counseled return precautions including worsening pain or significant bleeding. Encouraged to call her BLIND INSTALLER on-call if she has further questions or is unsure what to do. Counseled she cannot return to the emergency room. History & Record Review Additional record(s) reviewed:: Prior labs Lab Data Attestation: I reviewed the patient's lab results. Labs: Laboratory Results - last 24 hr 02/07/23 02/07/23 02/07/23 17:10 17:37 17:37 Hgb 10.6 L Hct 32.6 L Urine Color Yellow Urine Clarity Clear Urine pH 5.0 Ur Specific [place] 1.030 Urine Protein 15 H Urine Glucose (UA) 50 H Urine Ketones Negative Urine Occult Blood Negative Urine Nitrite Negative Urine Bilirubin Negative Urine Urobilinogen Normal Ur Leukocyte Esterase Negative Urine RBC 0 SEEN Urine WBC 0-5 SEEN Ur Squamous Epith Cells 0 SEEN Ur Transition Epith Cell 0-5 SEEN Urine Bacteria 0 SEEN Urine Mucus RARE Blood Type TNP 02/07/23 17:37 Hgb Hct Urine Color Urine Clarity Urine pH Ur Specific [place] Urine Protein Urine Glucose (UA) Urine Ketones Urine Occult Blood Urine Nitrite Urine Bilirubin Urine Urobilinogen Ur Leukocyte Esterase Urine RBC Urine WBC Ur Squamous Epith Cells Ur Transition Epith Cell Urine Bacteria Urine Mucus Blood Type AB NEGATIVE Discharge Plan Triage Chief Complaint: Vag Bld, Preg ED Provider: Ebony Zhao Dx/Rx/DC Orders Clinical Impression: Threatened miscarriage, Vaginal bleeding during Instructions: ED Possible Miscarriage ... Prescriptions: No Action ferrous sulfate [iron] 325 mg (65 mg iron) Tablet 325 mg PO QODAY Primary Care Provider: Care Physician,No Primary Referrals: Shana Mcgrath MD [Med Staff - Active Staff] - 3-5 Days Care Physician,No Primary [Primary Care Provider] - Activity Restrictions/Additional Instructions: Please follow-up with your BLIND INSTALLER this week. Call the office tomorrow to make an appointment. You might have further bleeding. If you start to have brisk bleeding or severe abdominal pain/cramping please call your BLIND INSTALLER/return to the emergency room. You were given RhoGAM today because of your blood type. Disposition Disposition: Home, Self Care
== END 2023-02-07 19:26 | disposition home or self-care (01) ==
PROVIDERS: Emergency Provider Emergency Medicine; Visit Provider Emergency Medicine
DX: O20.0 Threatened abortion (principal); Z3A.11 11 weeks gestation of pregnancy; Z87.891 Personal history of nicotine dependence
CPT/HCPCS: 81001; 85014; 85018; 86900; 86901; 96372; 99282; A4216; J2790

== ENCOUNTER 2023-08-25 07:20 | Inpatient (IN) | payer BC, MEDICAID, SELFPAY ==
[2023-08-25] VITALS (47 sets, daily range): BP systolic 95–126; BP diastolic 52–69; PULSE 77–113; TEMP 36.2–37.1; O2SAT 99–100; BMI 30.9
--- OUTSIDE RECORDS SUMMARY | 2023-08-25 07:38 | XMS RPT_ITS | CCD ---
Author Name Unknown Address [address] [place] [address] Organization [facility] Care Team Providers Care Defect Repairer Glassware Name Role Phone [facility], [facility] MED Attending Unava ilable [facility], [facility] MED Primary Care Unava ilable P[place]ER[place], [facility] MED Admitting Unava ilable Unavailable Primary Care Provider Unavailabl e Unavailable Primary Care Provider Unavailabl e Unavailable Primary Care Provider Unavailabl e ADRIANE MALCOLM L Referring Unavailable ADRIANE MALCOLM L Attending Unavailable ADRIANE, MALCOLM L Referring Unavailable ADRIANE, MALCOLM L Attending Unavailable ADRIANE, MALCOLM L Referring Unavailable KEILA RAMSAY Attending Unavailable ADRIANE, MALCOLM L Referring Unavailable ADRIANE, MALCOLM L Attending Unavailable ABENA RAMSAY Referring Unavailable SHAHBAZ HUERTA Attending Unavailable ADRIANE, MALCOLM L Attending Unavailable ADRIANE, MALCOLM L Attending Unavailable ADRIANE, MALCOLM L Referring Unavailable ADRIANE, MALCOLM L Attending Unavailable LACIE DAVIS Attending Unavailable ADRIANE, MALCOLM L Attending Unavailable ANA GREENFIELD Attending Unavailable ADRIANE, MALCOLM L Attending Unavailable ADRIANE, MALCOLM L Referring Unavailable ADRIANE, MALCOLM L Referring Unavailable ADRIANE, MALCOLM L Attending Unavailable ADRIANE, MALCOLM L Referring Unavailable ADRIANE, MALCOLM L Attending Unavailable ADRIANE, MALCOLM L Referring Unavailable SAVANNA VELAZQUEZ Attending Unavailable ADRIANE, MALCOLM L Attending Unavailable ADRIANE, MALCOLM L Referring Unavailable ADRIANE, MALCOLM L Referring Unavailable ADRIANE, MALCOLM L Attending Unavailable SHAHBAZ HUERTA Referring Unavailable Allergies Allergy Classification Reported Allergen(s) Allergy Type Date of Onset Reaction(s) Facility (20 sources) Sulfonamides (Antibiotic); Translations: [SULFA (SULFONAMIDE ANTIBIOTICS)] Drug Allergy 04-26-2006 [facility] Work Phone: Medications Current Medications Medication Drug Class(es) Dates Sig (Normalized) Sig (Original) doxycycline monohydrate 100 mg oral tablet (1 source) Tetracycline-clas s Drug Start: 09-07-2022 End: 09-14-2022 take 1 tablet by mouth twice daily doxycycline monohydrate 100 mg tablet Indications: URI, acute Take 1 tablet by mouth twice daily for 7 days. 14 tablet 0 09/07/2022 09/14/2022 Active Completed/Discontinued Medications Medication Drug Class(es) Dates Sig (Normalized) Sig (Original) docusate sodium 100 mg oral capsule (15 sources) Start: 01-18-2023 take 1 capsule by mouth every twelve hours as needed docusate sodium (COLACE) 100 mg capsule Take 1 capsule by mouth twice daily as needed for constipation. 60 capsule 1 01/18/2023 Active Problems Active Problems Problem Classification Problem Date Documented Da te Episodic/Chronic Administrative/social admission (1 source) Administrative reason for encounter; Translations: [Encounter for administrative examinations, unspecified] 06-08-2023 Episodic Anxiety disorders (20 sources) Anxiety; Translations: [Anxiety disorder, unspecified] Onset: 05-08-2021 05-08-2021 Chronic Cancer of cervix (1 source) Cervical atypism; Translations: [Atypical squamous cells of undetermined significance on cytologic smear of cervix (ASC-US)] Episodic Disorders of teeth and jaw (1 source) Toothache; Translations: [Other specified disorders of teeth and supporting structures] Episodic Gastrointestinal hemorrhage (1 source) Blood-tinged feces; Translations: [Melena] Episodic Hemorrhoids (2 sources) External hemorrhoids; Translations: [Residual hemorrhoidal skin tags] Episodic Immunizations and screening for infectious disease (6 sources) Patient encounter status; Translations: [Encounter for screening for infections with a predominantly sexual mode of transmission] Episodic Inflammatory diseases of female pelvic organs (1 source) Bacterial vaginosis; Translations: [Acute vaginitis] Episodic Menstrual disorders (2 sources) Missed period; Translations: [Irregular menstruation, unspecified] Onset: 12-22-2022 Chronic Other complications of (20 sources) Anemia in mother complicating , childbirth AND/OR puerperium; Translations: [Anemia complicating , third trimester] Onset: 10-07-2021 Chronic Other complications of (1 source) Anemia of ; Translations: [Anemia complicating , second trimester] 05-09-2023 Chronic Other complications of (1 source) Anemia complicating , third trimester; Translations: [Anemia complicating , third trimester] Onset: 07-06-2023 Chronic Other complications of (1 source) Anemia complicating , first trimester; Translations: [Antepartum anemia complicating in first trimester] Onset: 01-19-2023 Chronic Other complications of (20 sources) Finding of pattern of ; Translations: [Supervision of other high risk pregnancies, unspecified trimester] Onset: 01-13-2023 Episodic Other complications of (20 sources) History of delivery of macrosomal ; Translations: [Supervision of with other poor reproductive or obstetric history, unspecified trimester] Onset: 01-13-2023 Episodic Other complications of (9 sources) High risk ; Translations: [Supervision of other high risk pregnancies, first trimester] Episodic Other complications of (1 source) Spotting per vagina in ; Translations: [Spotting complicating , unspecified trimester] Episodic Other complications of (1 source) Supervision of high risk , unspecified, third trimester; Translations: [Supervision of high risk in third trimester] Onset: 07-06-2023 Episodic Other complications of (1 source) Supervision of high risk , unspecified, second trimester; Translations: [Supervision of high risk in second trimester] Onset: 06-08-2023 Episodic Other female genital disorders (2 sources) Vaginal odor; Translations: [Other specified noninflammatory disorders of vagina] Episodic Other gastrointestinal disorders (3 sources) Diarrhea; Translations: [Diarrhea, unspecified] Episodic Other gastrointestinal disorders (1 source) Constipation; Translations: [Constipation, unspecified] Episodic Other lower respiratory disease (1 source) Cough; Translations: [Acute cough] Episodic Other nutritional; endocrine; and metabolic disorders (1 source) Unintentional weight loss; Translations: [Abnormal weight loss] Episodic Other upper respiratory infections (2 sources) Sore throat symptom; Translations: [Acute pharyngitis, unspecified] Episodic Residual codes; unclassified (1 source) Gestation period, 33 weeks; Translations: [33 weeks gestation of ] Episodic Residual codes; unclassified (1 source) Gestation period, 36 weeks; Translations: [36 weeks gestation of ] Episodic Residual codes; unclassified (1 source) Gestation period, 37 weeks; Translations: [37 weeks gestation of ] Episodic Residual codes; unclassified (1 source) Gestation period, 38 weeks; Translations: [38 weeks gestation of ] Episodic Residual codes; unclassified (1 source) Gestation period, 8 weeks; Translations: [8 weeks gestation of ] Episodic Residual codes; unclassified (1 source) Gestation period, 11 weeks; Translations: [11 weeks gestation of ] Episodic Residual codes; unclassified (2 sources) Gestation period, 12 weeks; Translations: [12 weeks gestation of ] Episodic Residual codes; unclassified (2 sources) Gestation period, 20 weeks; Translations: [20 weeks gestation of ] 04-13-2023 Episodic Residual codes; unclassified (1 source) Gestation period, 24 weeks; Translations: [24 weeks gestation of ] 05-09-2023 Episodic Residual codes; unclassified (1 source) Gestation period, 28 weeks; Translations: [28 weeks gestation of ] 06-08-2023 Episodic Residual codes; unclassified (1 source) Gestation period, 30 weeks; Translations: [30 weeks gestation of ] 06-20-2023 Episodic Residual codes; unclassified (1 source) Gestation period, 34 weeks; Translations: [34 weeks gestation of ] 07-19-2023 Episodic Residual codes; unclassified (1 source) 24 weeks gestation of ; Translations: [24 weeks gestation of ] Onset: 06-08-2023 Episodic Unclassified (1 source) Acute cough; Translations: [Acute cough] Onset: 09-07-2022 Past or Other Problems Problem Classification Problem Date Documented Date Episodic/Chronic Abdominal pain (7 sources) Female genital organ symptoms; Translations: [Pelvic and perineal pain] Onset: 12-28-2022 Episodic Contraceptive and procreative management (20 sources) Sterilization requested; Translations: [Encounter for sterilization] Onset: 12-28-2022 Episodic Diabetes or abnormal glucose tolerance complicating ; childbirth; or the puerperium (20 sources) Abnormal glucose level; Translations: [Abnormal glucose complicating ] Onset: 12-25-2019 10-14-2021 Episodic Heart valve disorders (20 sources) Heart murmur; Translations: [Cardiac murmur, unspecified] Onset: 05-14-2021 06-17-2021 Episodic Other complications of (20 sources) RhD negative; Translations: [Other specified related conditions, unspecified trimester] Onset: 05-14-2021 05-14-2021 Episodic Other complications of (1 source) Supervision of other high risk pregnancies, unspecified trimester; Translations: [Short interval between pregnancies affecting , antepartum] Onset: 01-13-2023 Episodic Other complications of (1 source) Supervision of with other poor reproductive or obstetric history, unspecified trimester; Translations: [H/O macrosomia in in prior , currently ] Onset: 01-13-2023 Episodic Other complications of (1 source) Other specified related conditions, unspecified trimester; Translations: [Rh negative state in antepartum period] Onset: 01-13-2023 Episodic Other complications of (1 source) Supervision of other high risk pregnancies, first trimester; Translations: [Supervision of other high risk pregnancies, first trimester] Onset: 02-17-2023 Episodic Other complications of (1 source) Other specified related conditions, first trimester; Translations: [Abdominal pain during in first trimester] Onset: 12-28-2022 Episodic Other nutritional; endocrine; and metabolic disorders (1 source) Abnormal weight loss; Translations: [Weight loss, unintentional] Onset: 12-22-2022 Episodic Other and delivery including normal (7 sources) Normal ; Translations: [Encounter for supervision of other normal , third trimester] Onset: 01-18-2023 Episodic Other screening for suspected conditions (not mental disorders or infectious disease) (3 sources) Cancer cervix screening status; Translations: [Encounter for screening for malignant neoplasm of cervix] Onset: 03-23-2023 Episodic Residual codes; unclassified (1 source) Unspecified blood type, Rh negative; Translations: [Rh negative state in antepartum period] Onset: 01-13-2023 Episodic Residual codes; unclassified (1 source) 17 weeks gestation of ; Translations: [17 weeks gestation of ] Onset: 03-23-2023 Episodic Residual codes; unclassified (1 source) 8 weeks gestation of ; Translations: [8 weeks gestation of ] Onset: 02-17-2023 Episodic Residual codes; unclassified (1 source) 12 weeks gestation of ; Translations: [12 weeks gestation of ] Onset: 02-17-2023 Episodic Sexually transmitted infections (not HIV or hepatitis) (20 sources) Human papillomavirus deoxyribonucleic acid test positive, high risk on cervical specimen; Translations: [Cervical high risk human papillomavirus (HPV) DNA test positive] Onset: 06-17-2021 06-17-2021 Episodic Results Test Name Value Interpretation Reference Range Facil ity Vital Signs Date Time Vital Sign Value Performing Clinician Faci lity 07-19-2023 13:34-0500 Body weight 67.13 kg Malcolm Forrest MD Work Phone: [facility] 07-19-2023 13:34-0500 Diastolic blood pressure 58 mm[Hg] Malcolm Forrest MD Work Phone: [facility] 07-19-2023 13:34-0500 Systolic blood pressure 102 mm[Hg] Malcolm Forrest MD Work Phone: [facility] 07-06-2023 14:31-0500 Body weight 65.77 kg Malcolm Forrest MD Work Phone: [facility] 07-06-2023 14:31-0500 Diastolic blood pressure 56 mm[Hg] Malcolm Forrest MD Work Phone: [facility] 07-06-2023 14:31-0500 Systolic blood pressure 98 mm[Hg] Malcolm Forrest MD Work Phone: [facility] 06-20-2023 11:43-0500 Body weight 65.32 kg Malcolm Forrest MD Work Phone: [facility] 06-20-2023 11:43-0500 Diastolic blood pressure 58 mm[Hg] Malcolm Forrest MD Work Phone: [facility] 06-20-2023 11:43-0500 Systolic blood pressure 98 mm[Hg] Malcolm Forrest MD Work Phone: [facility] 06-08-2023 14:54-0400 Body weight 64.86 kg Malcolm Forrest MD Work Phone: [facility] 06-08-2023 14:54-0400 Diastolic blood pressure 58 mm[Hg] Malcolm Forrest MD Work Phone: [facility] 06-08-2023 14:54-0400 Systolic blood pressure 108 mm[Hg] Malcolm Forrest MD Work Phone: [facility] 05-09-2023 14:34-0400 Body weight 61.69 kg Malcolm Forrest MD Work Phone: [facility] 05-09-2023 14:34-0400 Diastolic blood pressure 56 mm[Hg] Malcolm Forrest MD Work Phone: [facility] 05-09-2023 14:34-0400 Systolic blood pressure 102 mm[Hg] Malcolm Forrest MD Work Phone: [facility] 04-13-2023 10:46-0400 Body weight 60.33 kg Malcolm Forrest MD Work Phone: [facility] 04-13-2023 10:46-0400 Diastolic blood pressure 54 mm[Hg] Malcolm Forrest MD Work Phone: [facility] 04-13-2023 10:46-0400 Systolic blood pressure 96 mm[Hg] Malcolm Forrest MD Work Phone: [facility] 02-17-2023 14:20-0400 Diastolic blood pressure 70 mm[Hg] Keila Ramsay MD Work Phone: [facility] 02-17-2023 14:20-0400 Systolic blood pressure 110 mm[Hg] Keila Ramsay MD Work Phone: [facility] 02-17-2023 13:41-0400 Body height 149.9 cm Ob Ultrasound Work Phone: [facility] 02-17-2023 13:41-0400 Body weight 57.15 kg Ob Ultrasound Work Phone: [facility] 02-09-2023 10:27-0400 Body weight 56.25 kg Savanna Velazquez APRN.CNM Work Phone: [facility] 02-09-2023 10:27-0400 Diastolic blood pressure 60 mm[Hg] Savanna Stefanedison FOREST PRODUCTS TEACHER.CNM Work Phone: [facility] 02-09-2023 10:27-0400 Systolic blood pressure 100 mm[Hg] Savanna Stefanedison FOREST PRODUCTS TEACHER.CNM Work Phone: [facility] 01-18-2023 10:33-0400 Body height 149.9 cm Malcolm Forrest MD Work Phone: [facility] 01-18-2023 10:33-0400 Body weight 55.79 kg Malcolm Forrest MD Work Phone: [facility] 01-18-2023 10:33-0400 Diastolic blood pressure 58 mm[Hg] Malcolm Forrest MD Work Phone: [facility] 01-18-2023 10:33-0400 Systolic blood pressure 102 mm[Hg] Malcolm Forrest MD Work Phone: [facility] 12-22-2022 09:17-0400 Body weight 54.43 kg Shahbaz Huerta MD Work Phone: [facility] 12-22-2022 09:17-0400 Diastolic blood pressure 60 mm[Hg] Shahbaz Huerta MD Work Phone: [facility] 12-22-2022 09:17-0400 Heart rate 76 /min Shahbaz Huerta MD Work Phone: [facility] 12-22-2022 09:17-0400 Respiratory rate 18 /min Shahbaz Huerta MD Work Phone: [facility] 12-22-2022 09:17-0400 Systolic blood pressure 98 mm[Hg] Shahbaz Huerta MD Work Phone: [facility] 09-07-2022 13:23-0500 Body temperature 99.19 [degF] Abena Ramsay APRN.BUTCHER ASSISTANT Work Phone: [facility] 09-07-2022 13:23-0500 Body weight 60.51 kg Abena Ramsay APRN.BUTCHER ASSISTANT Work Phone: [facility] 09-07-2022 13:23-0500 Diastolic blood pressure 64 mm[Hg] Abena Ramsay APRN.BUTCHER ASSISTANT Work Phone: [facility] 09-07-2022 13:23-0500 Heart rate 90 /min Abena Ramsay APRN.BUTCHER ASSISTANT Work Phone: [facility] 09-07-2022 13:23-0500 Respiratory rate 18 /min Abena Ramsay APRN.BUTCHER ASSISTANT Work Phone: [facility] 09-07-2022 13:23-0500 SaO2% (BldA) [Mass fraction] 100 % Abena Ramsay APRN.BUTCHER ASSISTANT Work Phone: [facility] 09-07-2022 13:23-0500 Systolic blood pressure 108 mm[Hg] Abena Ramsay APRN.BUTCHER ASSISTANT Work Phone: [facility] 05-26-2022 11:25-0400 Body height 149.9 cm Nataliya Linda APRN.BUTCHER ASSISTANT Work Phone: [facility] 05-26-2022 11:25-0400 Body weight 64.41 kg Nataliya Linda APRN.BUTCHER ASSISTANT Work Phone: [facility] 05-26-2022 11:25-0400 Diastolic blood pressure 60 mm[Hg] Nataliya Linda APRN.BUTCHER ASSISTANT Work Phone: [facility] 05-26-2022 11:25-0400 Systolic blood pressure 92 mm[Hg] Nataliya Linda APRN.BUTCHER ASSISTANT Work Phone: [facility] 02-11-2022 12:51-0400 Body temperature 98.49 [degF] Savannah Athy PA-C Work Phone: [facility] 02-11-2022 12:51-0400 Body weight 71.94 kg Savannah Athy PA-C Work Phone: [facility] 02-11-2022 12:51-0400 Diastolic blood pressure 64 mm[Hg] Savananh Athy PA-C Work Phone: [facility] 02-11-2022 12:51-0400 Heart rate 70 /min Savannah Athy PA-C Work Phone: [facility] 02-11-2022 12:51-0400 Respiratory rate 21 /min Savannah Athy PA-C Work Phone: [facility] 02-11-2022 12:51-0400 SaO2% (BldA) [Mass fraction] 99 % Savannah Athy PA-C Work Phone: [facility] 02-11-2022 12:51-0400 Systolic blood pressure 122 mm[Hg] Savannah Athy PA-C Work Phone: [facility] 01-20-2022 11:40-0400 Body weight 72.76 kg Savanna Plotts FOR[employer] PRODU[employer] TEACHER.CNM Work Phone: [facility] 01-20-2022 11:40-0400 Diastolic blood pressure 70 mm[Hg] Savanna Plotts FOREST PRODUCTS TEACHER.CNM Work Phone: [facility] 01-20-2022 11:40-0400 Systolic blood pressure 118 mm[Hg] Savanna Plotts FOREST PRODUCTS TEACHER.CNM Work Phone: [facility] 01-04-2022 16:30-0400 Body weight 75.3 kg Savanna Plotts FOREST PRODUCTS TEACHER.CNM Work Phone: [facility] 01-04-2022 16:30-0400 Diastolic blood pressure 60 mm[Hg] Savanna Plotts FOREST PRODUCTS TEACHER.CNM Work Phone: [facility] 01-04-2022 16:30-0400 Systolic blood pressure 110 mm[Hg] Savanna Plotts FOREST PRODUCTS TEACHER.CNM Work Phone: [facility] 12-17-2021 10:55-0400 Body weight 85.28 kg Malcolm Forrest MD Work Phone: [facility] 12-17-2021 10:55-0400 Diastolic blood pressure 60 mm[Hg] Malcolm Forrest MD Work Phone: [facility] 12-17-2021 10:55-0400 Systolic blood pressure 108 mm[Hg] Malcolm Forrest MD Work Phone: [facility] 12-09-2021 10:45-0400 Body weight 85.28 kg Malcolm Forrest MD Work Phone: [facility] 12-09-2021 10:45-0400 Diastolic blood pressure 62 mm[Hg] Malcolm Forrest MD Work Phone: [facility] 12-09-2021 10:45-0400 Systolic blood pressure 110 mm[Hg] Malcolm Forrest MD Work Phone: [facility] 12-03-2021 11:05-0400 Body weight 83.92 kg Malcolm Forrest MD Work Phone: [facility] 12-03-2021 11:05-0400 Diastolic blood pressure 60 mm[Hg] Malcolm Forrest MD Work Phone: [facility] 12-03-2021 11:05-0400 Systolic blood pressure 118 mm[Hg] Malcolm Forrest MD Work Phone: [facility] 11-10-2021 10:57-0400 Body weight 83.46 kg Malcolm Forrest MD Work Phone: [facility] 11-10-2021 10:57-0400 Diastolic blood pressure 60 mm[Hg] Malcolm Forrest MD Work Phone: [facility] 11-10-2021 10:57-0400 Systolic blood pressure 108 mm[Hg] Malcolm Forrest MD Work Phone: [facility] Encounters Encounter Date Encounter Type Care Provider Facility Start: 08-23-2023 ambulatory LACIE DAVIS Facility: [facility] Start: 08-19-2023 End: 08-19-2023 ambulatory MALCOLM FORREST Facility:[facility] Start: 08-11-2023 End: 08-11-2023 ambulatory ANA GREENFIELD Facility:[facility] Start: 08-03-2023 End: 08-03-2023 ambulatory MALCOLM FORREST Facility:[facility] Start: 07-19-2023 End: 07-20-2023 ambulatory MALCOLM FORREST Facility:[facility] Start: 07-19-2023 End: 07-19-2023 Patient encounter procedure Malcolm Forrest MD Work Phone: OB/Gynecology Procedures Date Procedure Procedure Detail Performing Clinician Start: 07-19-2023 URINE OB DIP B/O Amanda Forrest MD Work Phone: Start: 07-06-2023 URINE OB DIP B/O Amanda Forrest MD Work Phone: Start: 06-20-2023 URINE OB DIP B/O Amanda Forrest MD Work Phone: Start: 06-08-2023 Antibody screen MALCOLM FORREST Plan of Treatment Date Care Activity Detail Author Start: 10-06-2031 Urine microalbumin profile [facility] Start: 05-26-2025 PAP TESTING PAP TESTING [facility] Start: 05-15-2024 PAP TESTING PAP TESTING [facility] Start: 01-19-2024 CHLAMYDIA SCREENING (18-24) CH LAMYDIA SCREENING (18-24) [facility] Start: 01-19-2024 GC (GONORRHEA) SCREE KYLER (18-24) GC (GONORRHEA) SCREENING (18-24) [facility] Start: 12-23-2023 COVID-19 VACCINE (#1) COVID-19 VACCI NE (#1) [facility] Immunizations Immunization Date Immunization Notes Care Provider Fa cili 06-08-2023 RHO(D) immune globul in- IV or IM Malcolm Forrest MD Work Phone: [facility] 10-06-2021 RHO(D) immune globul in- IV or IM Malcolm Forrest MD Work Phone: [facility] 10-06-2021 tetanus toxoid, redu billie diphtheria toxoid, and acellular pertussis vaccine, adsorbed Malcolm Forrest MD Work Phone: [facility] 12-24-2019 RHO(D) immune globul in- IV or IM Malcolm Forrest MD Work Phone: [facility] Work Phone: 12-24-2019 tetanus toxoid, redu billie diphtheria toxoid, and acellular pertussis vaccine, adsorbed Malcolm Forrest MD Work Phone: [facility] Work Phone: 07-18-2012 human papilloma viru s vaccine, quadrivalent Malcolm Forrest MD Work Phone: [facility] 04-20-2012 human papilloma viru s vaccine, quadrivalent Malcolm Forrest MD Work Phone: [facility] 04-20-2012 Meningococcal, MCV4, unspecified conjugate formulation(groups A, C, Y and W-135) Malcolm Forrest MD Work Phone: [facility] 04-20-2012 tetanus toxoid, redu billie diphtheria toxoid, and acellular pertussis vaccine, adsorbed Malcolm Forrest MD Work Phone: [facility] 10-27-2004 diphtheria, tetanus toxoids and acellular pertussis vaccine Malcolm Forrest MD Work Phone: [facility] Work Phone: 10-27-2004 measles, mumps and rubella virus vaccine Malcolm Forrest MD Work Phone: [facility] Work Phone: 10-27-2004 poliovirus vaccine, inactivated Malcolm Forrest MD Work Phone: [facility] Work Phone: 11-29-2002 diphtheria, tetanus toxoids and acellular pertussis vaccine Malcolm Forrest MD Work Phone: [facility] Work Phone: 11-29-2002 haemophilus influenz ae type b vaccine, HbOC conjugate Malcolm Forrest MD Work Phone: [facility] Work Phone: 11-29-2002 hepatitis B vaccine, pediatric or pediatric/adolescent dosage Malcolm Forrest MD Work Phone: [facility] Work Phone: 11-29-2002 measles, mumps and rubella virus vaccine Malcolm Forrest MD Work Phone: [facility] Work Phone: 11-29-2002 varicella virus vaccine Brit Forrest MD Work Phone: [facility] Work Phone: 09-12-2000 diphtheria, tetanus toxoids and acellular pertussis vaccine Malcolm Forrest MD Work Phone: [facility] Work Phone: 09-12-2000 poliovirus vaccine, inactivated Malcolm Forrest MD Work Phone: [facility] Work Phone: 07-04-2000 diphtheria, tetanus toxoids and acellular pertussis vaccine Malcolm Forrest MD Work Phone: [facility] Work Phone: 07-04-2000 haemophilus influenz ae type b vaccine, HbOC conjugate Malcolm Forrest MD Work Phone: [facility] Work Phone: 07-04-2000 hepatitis B vaccine, pediatric or pediatric/adolescent dosage Malcolm Forrest MD Work Phone: [facility] Work Phone: 07-04-2000 poliovirus vaccine, inactivated Malcolm Forrest MD Work Phone: [facility] Work Phone: 05-04-2000 diphtheria, tetanus toxoids and acellular pertussis vaccine Malcolm Forrest MD Work Phone: [facility] Work Phone: 05-04-2000 haemophilus influenz ae type b vaccine, HbOC conjugate Malcolm Forrest MD Work Phone: [facility] Work Phone: 05-04-2000 hepatitis B vaccine, pediatric or pediatric/adolescent dosage Malcolm Forrest MD Work Phone: [facility] Work Phone: 05-04-2000 poliovirus vaccine, inactivated Malcolm Forrest MD Work Phone: [facility] Work Phone: Payers Date Payer Category Payer Medicaid [employer] [id number] 2017-Present [phone] [address] [place] [address] Medicaid [id number] 2017 Medicaid [id number] 2017 Medicaid [id number] 2017 Medicaid [id number] 2017 Unknown [employer] PPO OOS [id number] 2017-Present [phone] [address] [place] [address] PPO [id number] 2017 Unknown [employer] CARD PPO OOS [id number] 2017-Present [phone] [address] [place] [address] PPO [id number] 2017 Unknown [id number] Social History Date Type Detail Facility Start: 07-02-2019 End: 09-07-2022 Tobacco smoking status WAIS Ex-smoker [facility] End: 06-04-2019 History of tobacco use Current smoker [facility] End: 06-04-2019 History of tobacco use Cigarette Smoker [facility] Start: 07-02-2019 End: 09-07-2022 Tobacco use and exposure Smokeless tobacco non-user [facility] Start: 11-10-2021 End: 07-19-2023 Alcohol intake Current non-drinker of alcohol (finding) [facility] Start: 04-22-2020 End: 12-21-2022 History SDOH Financial 5 [facility] Start: 04-22-2020 End: 12-21-2022 History SDOH Food Worry 1 [facility] Start: 04-22-2020 End: 12-21-2022 History SDOH Transport Med 2 [facility] kory Start: 08-16-2019 Education 13 [facility] Start: 04-06-2021 [facility] Start: 1999 Sex Assigned At Not on file C [facility] Start: 10-31-2021 End: 05-26-2022 Exposure to SARS-CoV-2 (event) Not sure [facility] Start: 12-21-2022 History SDOH Alcohol Std Drinks 0 [facility] Start: 12-21-2022 History SDOH Social Connections Phone 4 [facility] Start: 12-21-2022 History SDOH Social Connections Living 3 [facility] Start: 12-20-2022 End: 02-17-2023 History of Social function [facility] Start: 12-20-2022 End: 02-17-2023 Social connection and isolation panel [facility] Do you belong to any clubs or organizations such as restorationist groups, unions, fraternal or athletic groups, or school groups? No [facility] Are you now , , , , never or living with a partner? [facility] How often to you hav e a drink containing alcohol? Never [facility] How many standard dr inks containing alcohol do you have on a typical day? Patient does not drink [facility] Do you feel stress - tense, restless, nervous, or anxious, or unable to sleep at night because your mind is troubled all the time - these days [OSQ] Not at all [facility] (I/We) worried wheth er (my/our) food would run out before (I/we) got money to buy more. Never true [facility] Goals Date Patient Goal Desired Activity /State Personal health goal Clinical Notes 09-17-2019 to 07-19-2023 Quick Notes - Malcolm Forrest MD - 07/19/2023 1:40 PM ESTPatient InstructionsPrenatal Quick Notes - Malcolm Forrest MD - 07/06/2023 2:55 PM ESTPatient InstructionsPatient Instructions Note Date & Type Note Facility 07-19-2023 Miscellaneous Notes RR- VB No. LOF No. CTXS No. Movement: present. Other c/o: No. Medication list reviewed. Physical Exam See Flow Sheet Abd: soft, nontender, gravid Ext: edema: Trace A/P 34w1d Estimated Date of Delivery: 08/29/23 declines RSV vaccine after discussion, plans vaccination f/u in 2 weeks or prn .anemia- recheck ccbc today Malcolm Forrest M.D. documented in this encounter [facility] 07-19-2023 Instructions Radha Howard Ma - 07/19/2023 1:35 PM EST SEQUENTIAL SCREENINGS The [facility] offers sequential screenings for women who are interested in screenings for chromosomal abnormalities and certain defects during a . The sequential screen combines ultrasound and blood tests to determine the risk of chromosomal abnormalities, including Down's Syndrome (Trisomy 21) and Trisomy 18, as well as open neural tube defects including spina bifida. Ultrasound examination is performed between 11 weeks and 13 weeks gestational age. Blood tests are drawn after the ultrasound and again later in the between 15 and 21 weeks gestational age. Please let your physician know if you are interested in this testing. It will require an appointment with our chief technician. This is not an ultrasound performed by a physician in our office during a routine visit. SIGNS AND SYMPTOMS OF LABOR 1. Contractions every 10 minutes or more often 2. Clear, pink, or brownish fluid (water) leaking from vagina 3. Feeling that baby is pushing down, pressure 4. Low, dull backache 5. Cramps that feel like a period 6. Cramps with or without diarrhea If you notice any of the above symptoms, contact our office at [phone] and ask to speak with a nurse. After hours, you can call doctors registry at [phone] OR call [facility] at [phone] and ask to have the doctor lead generation marketing manager paged. If you consider this an emergency, dial or go to your nearest emergency department. NEED HELP? Are you dealing with a violent or abusive relationship? Are you a victim of rape or sexual assult? Call [facility] ([place]) 24 hour Crisis Hotline: 653.561.7971 or 120-597-0377. MANUAL Your Guide to a Healthy manual is now on-line. Visit [email or web address] to download your free copy documented in this encounter [facility] 07-06-2023 Miscellaneous Notes RR- VB No. LOF No. CTXS No. Movement: present. Other c/o: No. Medication list reviewed. Physical Exam See Flow Sheet Abd: soft, nontender, gravid Ext: edema: 1+ A/P 32w2d Estimated Date of Delivery: 08/29/23 \ANemia- taking fe and PNV, recheck cbc today kick counts F/u in 2 weeks or prn reviewed option for RSV vaccine- will consider for next visit Malcolm Forrest M.D. documented in this encounter [facility] 07-06-2023 Instructions Radha Howard Ma - 07/06/2023 2:32 PM EST SEQUENTIAL SCREENINGS The [facility] offers sequential screenings for women who are interested in screenings for chromosomal abnormalities and certain defects during a . The sequential screen combines ultrasound and blood tests to determine the risk of chromosomal abnormalities, including Down's Syndrome (Trisomy 21) and Trisomy 18, as well as open neural tube defects including spina bifida. Ultrasound examination is performed between 11 weeks and 13 weeks gestational age. Blood tests are drawn after the ultrasound and again later in the between 15 and 21 weeks gestational age. Please let your physician know if you are interested in this testing. It will require an appointment with our chief technician. This is not an ultrasound performed by a physician in our office during a routine visit. SIGNS AND SYMPTOMS OF LABOR 1. Contractions every 10 minutes or more often 2. Clear, pink, or brownish fluid (water) leaking from vagina 3. Feeling that baby is pushing down, pressure 4. Low, dull backache 5. Cramps that feel like a period 6. Cramps with or without diarrhea If you notice any of the above symptoms, contact our office at [phone] and ask to speak with a nurse. After hours, you can call doctors registry at [phone] OR call [facility] at [phone] and ask to have the doctor lead generation marketing manager paged. If you consider this an emergency, dial 9--0 or go to your nearest emergency department. NEED HELP? Are you dealing with a violent or abusive relationship? Are you a victim of rape or sexual assult? Call [facility] ([place]) 24 hour Crisis Hotline: 802.673.6218 or 386-890-5564. MANUAL Your Guide to a Healthy manual is now on-line. Visit [email or web address] to download your free copy documented in this encounter [facility] 06-30-2023 Miscellaneous Notes Order signed and faxed. Shobha Gastelum RN Received breast pump order from [employer]. To RR to sign. Tami Galvin RN documented in this encounter [facility] 06-20-2023 Miscellaneous Notes RR- VB No. LOF No. CTXS yes, irreg Movement: present. Other c/o: No. Medication list reviewed. Physical Exam See Flow Sheet Abd: soft, nontender, gravid Ext: edema: Trace A/P 30w0d Estimated Date of Delivery: 08/29/23 kick counts f/u in 2 weeks or prn, reassured no evidence of PTL Malcolm Forrest M.D. documented in this encounter [facility] 06-20-2023 Instructions Radha Howard Ma - 06/20/2023 11:43 AM EST SEQUENTIAL SCREENINGS The [facility] offers sequential screenings for women who are interested in screenings for chromosomal abnormalities and certain defects during a . The sequential screen combines ultrasound and blood tests to determine the risk of chromosomal abnormalities, including Down's Syndrome (Trisomy 21) and Trisomy 18, as well as open neural tube defects including spina bifida. Ultrasound examination is performed between 11 weeks and 13 weeks gestational age. Blood tests are drawn after the ultrasound and again later in the between 15 and 21 weeks gestational age. Please let your physician know if you are interested in this testing. It will require an appointment with our chief technician. This is not an ultrasound performed by a physician in our office during a routine visit. SIGNS AND SYMPTOMS OF LABOR 1. Contractions every 10 minutes or more often 2. Clear, pink, or brownish fluid (water) leaking from vagina 3. Feeling that baby is pushing down, pressure 4. Low, dull backache 5. Cramps that feel like a period 6. Cramps with or without diarrhea If you notice any of the above symptoms, contact our office at [phone] and ask to speak with a nurse. After hours, you can call doctors registry at [phone] OR call [facility] at [phone] and ask to have the doctor lead generation marketing manager paged. If you consider this an emergency, dial 1-4-5 or go to your nearest emergency department. NEED HELP? Are you dealing with a violent or abusive relationship? Are you a victim of rape or sexual assult? Call [facility] ([place]) 24 hour Crisis Hotline: 519.429.4261 or 478-340-2562. MANUAL Your Guide to a Healthy manual is now on-line. Visit [email or web address] to download your free copy documented in this encounter [facility] 06-09-2023 Miscellaneous Notes 3rd risk assessment form submitted 06/09/2023. Tami Steel RN documented in this encounter [facility] 06-08-2023 Miscellaneous Notes RR- VB No. LOF No. CTXS some cramping Movement: present. Other c/o: No. Medication list reviewed. Physical Exam See Flow Sheet Abd: soft, nontender, gravid Ext: edema: Trace A/P 28w2d Estimated Date of Delivery: 08/29/23 Labs: 28 week labs rh prophylaxis today declines larc Risks, benefits and alternatives to sterilization have been discussed with the patient. She declines reversible options including LARC. She understands sterilization is permanent, irreversible, risks of failure, regret and ectopic. In addition she understands there are surgical risks as well. Her questions were answered to her satisfaction and consent was signed. F/u in 2 weeks or prn Malcolm Forrest M.D. documented in this encounter [facility] 06-08-2023 Nurse Note The patient is here for an injection of Rhogam. Dose: 300 mcg Amount wasted: none. Route: Intramuscular Site: left upper quadrant gluteus Lot #: [id number] Expiration Date: 05/13/2025 See AINKA Galvin RN documented in this encounter [facility] 06-08-2023 Instructions Radah Howard Ma - 06/08/2023 2:32 PM EDT SEQUENTIAL SCREENINGS The [facility] offers sequential screenings for women who are interested in screenings for chromosomal abnormalities and certain defects during a . The sequential screen combines ultrasound and blood tests to determine the risk of chromosomal abnormalities, including Down's Syndrome (Trisomy 21) and Trisomy 18, as well as open neural tube defects including spina bifida. Ultrasound examination is performed between 11 weeks and 13 weeks gestational age. Blood tests are drawn after the ultrasound and again later in the between 15 and 21 weeks gestational age. Please let your physician know if you are interested in this testing. It will require an appointment with our chief technician. This is not an ultrasound performed by a physician in our office during a routine visit. SIGNS AND SYMPTOMS OF LABOR 1. Contractions every 10 minutes or more often 2. Clear, pink, or brownish fluid (water) leaking from vagina 3. Feeling that baby is pushing down, pressure 4. Low, dull backache 5. Cramps that feel like a period 6. Cramps with or without diarrhea If you notice any of the above symptoms, contact our office at [phone] and ask to speak with a nurse. After hours, you can call doctors registry at [phone] OR call [facility] at [phone] and ask to have the doctor lead generation marketing manager paged. If you consider this an emergency, dial 4-7-9 or go to your nearest emergency department. NEED HELP? Are you dealing with a violent or abusive relationship? Are you a victim of rape or sexual assult? Call [facility] ([place]) 24 hour Crisis Hotline: 578.650.2902 or 389-500-8531. MANUAL Your Guide to a Healthy manual is now on-line. Visit [email or web address] to download your free copy documented in this encounter [facility] 05-09-2023 Miscellaneous Notes RR- VB No. LOF No. CTXS No. Movement: present. Other c/o: No. Medication list reviewed. Physical Exam See Flow Sheet Abd: soft, nontender, gravid A/P 24w0d Estimated Date of Delivery: 08/29/23 Labs: 28 week labs next visit declines flu vaccine today f/u in 4 weeks or prn. having some dental issues, recommended to have some extractions. D/w her this is safe if recommended and dental infections can increase risk of PTD Malcolm Forrest M.D. documented in this encounter [facility] 05-09-2023 Instructions Radha Howard Ma - 05/09/2023 2:35 PM EDT SEQUENTIAL SCREENINGS The [facility] offers sequential screenings for women who are interested in screenings for chromosomal abnormalities and certain defects during a . The sequential screen combines ultrasound and blood tests to determine the risk of chromosomal abnormalities, including Down's Syndrome (Trisomy 21) and Trisomy 18, as well as open neural tube defects including spina bifida. Ultrasound examination is performed between 11 weeks and 13 weeks gestational age. Blood tests are drawn after the ultrasound and again later in the between 15 and 21 weeks gestational age. Please let your physician know if you are interested in this testing. It will require an appointment with our chief technician. This is not an ultrasound performed by a physician in our office during a routine visit. SIGNS AND SYMPTOMS OF LABOR 1. Contractions every 10 minutes or more often 2. Clear, pink, or brownish fluid (water) leaking from vagina 3. Feeling that baby is pushing down, pressure 4. Low, dull backache 5. Cramps that feel like a period 6. Cramps with or without diarrhea If you notice any of the above symptoms, contact our office at [phone] and ask to speak with a nurse. After hours, you can call doctors registry at [phone] OR call [facility] at [phone] and ask to have the doctor lead generation marketing manager paged. If you consider this an emergency, dial 6-1-3 or go to your nearest emergency department. NEED HELP? Are you dealing with a violent or abusive relationship? Are you a victim of rape or sexual assult? Call [facility] ([place]) 24 hour Crisis Hotline: 490.867.8551 or 313-196-4757. MANUAL Your Guide to a Healthy manual is now on-line. Visit [email or web address] to download your free copy documented in this encounter [facility] 04-19-2023 Miscellaneous Notes 2nd risk assessment form submitted April 19, 2023. KIARA Landers, RN OB Clinical Navigator [phone] documented in this encounter [facility] 04-13-2023 Miscellaneous Notes Anatomy ultrasound reviewed. No abnormalities identified. Follow up as clinically indicated. Please place copy in ob chart. Malcolm oFrrest MD documented in this encounter [facility] 04-13-2023 Miscellaneous Notes RR- VB No. LOF No. CTXS No. Movement: present. Other c/o: No. Medication list reviewed. Physical Exam See Flow Sheet Abd: soft, nontender, gravid Ext: edema: Trace A/P 20w2d Estimated Date of Delivery: 08/29/23 anatomy US done today refill pnv .antepartum iron def. anemia, recommend PNV w/ fe and every other day fe supplement at time separate from PNV Malcolm Forrest M.D. documented in this encounter [facility] 04-13-2023 Instructions Radha Howard Ma - 04/13/2023 10:38 AM EDT SEQUENTIAL SCREENINGS The [facility] offers sequential screenings for women who are interested in screenings for chromosomal abnormalities and certain defects during a . The sequential screen combines ultrasound and blood tests to determine the risk of chromosomal abnormalities, including Down's Syndrome (Trisomy 21) and Trisomy 18, as well as open neural tube defects including spina bifida. Ultrasound examination is performed between 11 weeks and 13 weeks gestational age. Blood tests are drawn after the ultrasound and again later in the between 15 and 21 weeks gestational age. Please let your physician know if you are interested in this testing. It will require an appointment with our chief technician. This is not an ultrasound performed by a physician in our office during a routine visit. SIGNS AND SYMPTOMS OF LABOR 1. Contractions every 10 minutes or more often 2. Clear, pink, or brownish fluid (water) leaking from vagina 3. Feeling that baby is pushing down, pressure 4. Low, dull backache 5. Cramps that feel like a period 6. Cramps with or without diarrhea If you notice any of the above symptoms, contact our office at [phone] and ask to speak with a nurse. After hours, you can call doctors registry at [phone] OR call [facility] at [phone] and ask to have the doctor lead generation marketing manager paged. If you consider this an emergency, dial 9-1-6 or go to your nearest emergency department. NEED HELP? Are you dealing with a violent or abusive relationship? Are you a victim of rape or sexual assult? Call [facility] ([place]) 24 hour Crisis Hotline: 127.420.8595 or 857-046-9270. MANUAL Your Guide to a Healthy manual is now on-line. Visit [email or web address] to download your free copy documented in this encounter [facility] 02-17-2023 Miscellaneous Notes KJ - VB No. LOF No. CTXS No. Movement: absent. Other c/o: No. She has not been taking extra iron. Medication list reviewed. Physical Exam See Flow Sheet Gen: no accute distress, well appearing A/P 12w3d Estimated Date of Delivery: 08/29/23 Anemia - encouraged Fe & Regular PNV use. Labs today. NT with NIPT Keila Ramsay MD documented in this encounter [facility] 02-17-2023 Instructions Eileen Timmons MA - 02/17/2023 1:51 PM EDT SEQUENTIAL SCREENINGS The [facility] offers sequential screenings for women who are interested in screenings for chromosomal abnormalities and certain defects during a . The sequential screen combines ultrasound and blood tests to determine the risk of chromosomal abnormalities, including Down's Syndrome (Trisomy 21) and Trisomy 18, as well as open neural tube defects including spina bifida. Ultrasound examination is performed between 11 weeks and 13 weeks gestational age. Blood tests are drawn after the ultrasound and again later in the between 15 and 21 weeks gestational age. Please let your physician know if you are interested in this testing. It will require an appointment with our chief technician. This is not an ultrasound performed by a physician in our office during a routine visit. SIGNS AND SYMPTOMS OF LABOR 1. Contractions every 10 minutes or more often 2. Clear, pink, or brownish fluid (water) leaking from vagina 3. Feeling that baby is pushing down, pressure 4. Low, dull backache 5. Cramps that feel like a period 6. Cramps with or without diarrhea If you notice any of the above symptoms, contact our office at [phone] and ask to speak with a nurse. After hours, you can call doctors registry at [phone] OR call [facility] at [phone] and ask to have the doctor lead generation marketing manager paged. If you consider this an emergency, dial 7--4 or go to your nearest emergency department. NEED HELP? Are you dealing with a violent or abusive relationship? Are you a victim of rape or sexual assult? Call [facility] ([place]) 24 hour Crisis Hotline: 442.667.1197 or 102-452-8680. MANUAL Your Guide to a Healthy manual is now on-line. Visit [email or web address] to download your free copy documented in this encounter [facility] 02-09-2023 Miscellaneous Notes S: Jhon Patel is a 22 year old female who presents at 11.2 weeks gestation. She was seen in ED on Tuesday for 4 episodes of vaginal bleeding/spotting that was red-dark brown in color. Not bleeding in a pad but did have some cramping. Ultrasound completed which showed IUP with postive cardiac activity and CE was closed thick and high. Denies any recent episodes of spotting. O: See flow sheet Gen: No apparent distress Abd: Gravid, nontender TAUS- confirms IUP with positive cardiac activity ASSESSMENT/PLAN: 1. 11 weeks gestation of - ICD9: V22.2, ICD10: Z3A.11 (primary diagnosis) - URINE OB DIP B/O - NUCHAL TRANSLUCENCY WHI 2. Spotting in - ICD9: 649.50, ICD10: O26.859 - Support provided - Bleeding precautions reviewed P: 1) PTL/ Bleeding precautions reviewed and when to call 2) RTO 1 week for NT US and labs Savanna Velazquez APRN.CNM documented in this encounter [facility] 02-09-2023 Instructions Salma Villalta Ma - 02/09/2023 10:21 AM EDT SEQUENTIAL SCREENINGS The [facility] offers sequential screenings for women who are interested in screenings for chromosomal abnormalities and certain defects during a . The sequential screen combines ultrasound and blood tests to determine the risk of chromosomal abnormalities, including Down's Syndrome (Trisomy 21) and Trisomy 18, as well as open neural tube defects including spina bifida. Ultrasound examination is performed between 11 weeks and 13 weeks gestational age. Blood tests are drawn after the ultrasound and again later in the between 15 and 21 weeks gestational age. Please let your physician know if you are interested in this testing. It will require an appointment with our chief technician. This is not an ultrasound performed by a physician in our office during a routine visit. SIGNS AND SYMPTOMS OF LABOR 1. Contractions every 10 minutes or more often 2. Clear, pink, or brownish fluid (water) leaking from vagina 3. Feeling that baby is pushing down, pressure 4. Low, dull backache 5. Cramps that feel like a period 6. Cramps with or without diarrhea If you notice any of the above symptoms, contact our office at [phone] and ask to speak with a nurse. After hours, you can call doctors registry at [phone] OR call [facility] at [phone] and ask to have the doctor lead generation marketing manager paged. If you consider this an emergency, dial -2 or go to your nearest emergency department. NEED HELP? Are you dealing with a violent or abusive relationship? Are you a victim of rape or sexual assult? Call [facility] ([place]) 24 hour Crisis Hotline: 124.939.4273 or 839-523-2648. MANUAL Your Guide to a Healthy manual is now on-line. Visit [email or web address] to download your free copy documented in this encounter [facility] 02-08-2023 Miscellaneous Notes Pt returned call and was seen in the ED last evening. They reported that all is well with the . Pt states that the bleeding has slowed and is now brown. No cramping or any other c/o. Pt was assisted in scheduling appointment for 02/09/23. Pt given bleeding precautions.Raquel العراقي LPN Left message to call office. Cahrley Joaquin RN Can schedule appt with patient tomorrow if she would like. Please review bleeding precautions. Thanks, Lacie Davis APRN.CNM 11w0d Calling because she just noticed bright red vaginal bleeding with wiping. She did start with some mild cramping this afternoon before it occurred. Thought she had to have a BM so she was straining on the toilet when she first noticed the bleeding. She had NOB with RR 01/18/23 and next visit is scheduled for 02/17/23. Please advise. Shobha Gastelum RN documented in this encounter [facility] 01-18-2023 Note HNO ID: [id number] Author: Malcolm Forrest MD Service: ? Author Type: Physician Type: Progress Notes Filed: 01/18/2023 11:01 AM Note Text: OB point of care ultrasound was performed. See imaging tab for details. Radha Howard Ma INITIAL OB ASSESSMENT OB Provider: Malcolm Forrest MD HPI: Jhon is a 22 year old White here to establish Obstetrical Care. Patient's last menstrual period was 11/22/2022 (exact date). from OB Dating Form. Cycles regular was unplanned but accepted Complaints: None OB History T3 L3 SAB0 IAB0 Ectopic0 Multiple0 Live Births3 Previous history: Prior : never History of 4th degree laceration: No History of shoulder dystocia: No History of Hypertensive disorders including pre-eclampsia, chronic hypertension or gestational hypertension: No History of gestational diabetes: No Patient's Risk Screening for delivery: MEDICAL/PSYCHOSOCIAL HISTORY: History of hemorrhage or bleeding concerns: No Thyroid Disease: No History of chronic hypertension: No History of pre-existing diabetes: No ABO/RH(D) Date Value Ref Range Status 10/06/2021 AB NEGATIVE Final No weight on file for this encounter. History of abnormal pap: yes Prior treatment for cervical dysplasia: none. History of STDs: None Tobacco use: No Caffeine use: occas Drug use: No Alcohol use: No Multivitamin with Folic acid: Yes Shinto or heritage: No Would refuse blood transfusion if medically necessary: No Are you currently employed? 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 Gender: Male History of STDs: None PAST MEDICAL HISTORY Diagnosis Date Abdominal pain 01/15/2013 Abnormal glandular Papanicolaou smear of cervix 2020 ASCUS +HPV Anemia Blood in stool Chlamydia 2017 Maternal care for anti-D (Rh) antibodies in first trimester 09/17/2019 PAST SURGICAL HISTORY Procedure Laterality Date COLONOSCOPY 02/20/13 Negative EGD 02/20/13 Negative HYSTEROSCOPY BX ENDOMETRIUMAND/POLYPC W/WO DANDC 04/19/2019 hysteroscopy DANDC, no polyp noted- chronic endometritis and proliferative endometrium Current Outpatient Medications Medication Sig Dispense Refill multivitamin (CLASSIC ) 28 mg iron- 800 mcg tab(s) Take 1 tablet by mouth once daily. No current facility-administered medications for this visit. Allergies As of Date: 01/18/2023 Allergen Noted Reaction SULFA (SULFONAMIDE ANTIBIOTICS) 04/26/2006 Hives Fully Assessed 01/13/2023 Does patient have penicillin allergy: No REVIEW OF SYSTEMS: GENERAL: Negative for: Fever or Chills HEENT: Negative for: Headache, Impaired Vision, Ringing in Ears, Nosebleeds NECK: Negative for: Swelling, Pain, Stiffness RESPIRATORY: Negative for: Cough, Shortness of breath, Wheezing GASTROINTESTINAL: Negative for: Heartburn, Constipation, Diarrhea, Blood in stool, Vomiting MUSCULOSKELETAL: Negative for: Muscle or joint pain, stiffness, Joint swelling NEUROLOGIC/PSYCHIATRIC: Negative for: Weakness, Paralysis, Numbness, Tingling, Tremor, Anxiety, Depression, Memory loss SKIN: Negative for: Rash, Itching GENITOURINARY: Negative for: vaginal itching, vaginal discharge, hematuria or dysuria PHYSICAL EXAM: LMP 11/22/2022 GENERAL: pleasant in no apparent distress DERMATOLOGY: Normal, without lesions, non-icteric, and non-hirsute NECK: Supple, full range of motion, no adenopathy, and thyroid normal CHEST: Normal inspiratory effort BREAST: soft, non-tender, symmetric, no dominant mass, normal nipple-areolar complex, no lymphadenopathy, and no nipple discharge ABDOMEN: soft, non-tender, and no masses NEURO: alert and oriented x3,exam grossly non-focal PELVIS: External genitalia normal without lesions. Perineal body intact. No vaginal or cervical lesions. Cervix closed. Uterus 8 week size. No adnexal masses or tenderness. Clinical Pelvimetry: Pelvimetry clinically assessed as adequate Limited OB ultrasound exam: positive cardiac activity OB Risk Screening: Completed, no positive findings documented. ASSESSMENT: 22 year old at 8w1d wks gestational age PLAN: 1) Patient oriented to practice. Patient given new OB orientation folder. Discussed nutrition, folic acid supplementation, dietary guidelines, exercise, smoking, alcohol, caffeine, (more content not included)... [facility] 01-18-2023 Instructions Radha Howard Ar - 01/18/2023 10:30 AM EDT Please select the following link to access the [facility] Your Guide to a Healthy . [email or web address] documented in this encounter [facility] 01-18-2023 History of Present illness Narrative OB point of care ultrasound was performed. See imaging tab for details. Radha Howard Ma INITIAL OB ASSESSMENT OB Provider: Malcolm Forrest MD HPI: Jhon is a 22 year old White here to establish Obstetrical Care. Patient's last menstrual period was 11/22/2022 (exact date). from OB Dating Form. Cycles regular was unplanned but accepted Complaints: None OB History T3 L3 SAB0 IAB0 Ectopic0 Multiple0 Live Births3 Previous history: Prior : never History of 4th degree laceration: No History of shoulder dystocia: No History of Hypertensive disorders including pre-eclampsia, chronic hypertension or gestational hypertension: No History of gestational diabetes: No Patient's Risk Screening for delivery: MEDICAL/PSYCHOSOCIAL HISTORY: History of hemorrhage or bleeding concerns: No Thyroid Disease: No History of chronic hypertension: No History of pre-existing diabetes: No ABO/RH(D) Date Value Ref Range Status 10/06/2021 AB NEGATIVE Final No weight on file for this encounter. History of abnormal pap: yes Prior treatment for cervical dysplasia: none. History of STDs: None Tobacco use: No Caffeine use: occas Drug use: No Alcohol use: No Multivitamin with Folic acid: Yes Shinto or heritage: No Would refuse blood transfusion if medically necessary: No Are you currently employed? 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 Gender: Male History of STDs: None PAST MEDICAL HISTORY Diagnosis Date Abdominal pain 01/15/2013 Abnormal glandular Papanicolaou smear of cervix 2020 ASCUS +HPV Anemia Blood in stool Chlamydia 2017 Maternal care for anti-D (Rh) antibodies in first trimester 09/17/2019 PAST SURGICAL HISTORY Procedure Laterality Date COLONOSCOPY 02/20/13 Negative EGD 02/20/13 Negative HYSTEROSCOPY BX ENDOMETRIUM&/POLYPC W/WO D&C 04/19/2019 hysteroscopy D&C, no polyp noted- chronic endometritis and proliferative endometrium Current Outpatient Medications Medication Sig Dispense Refill multivitamin (CLASSIC ) 28 mg iron- 800 mcg tab(s) Take 1 tablet by mouth once daily. No current facility-administered medications for this visit. Allergies As of Date: 01/18/2023 Allergen Noted Reaction SULFA (SULFONAMIDE ANTIBIOTICS) 04/26/2006 Hives Fully Assessed 01/13/2023 Does patient have penicillin allergy: No REVIEW OF SYSTEMS: GENERAL: Negative for: Fever or Chills HEENT: Negative for: Headache, Impaired Vision, Ringing in Ears, Nosebleeds NECK: Negative for: Swelling, Pain, Stiffness RESPIRATORY: Negative for: Cough, Shortness of breath, Wheezing GASTROINTESTINAL: Negative for: Heartburn, Constipation, Diarrhea, Blood in stool, Vomiting MUSCULOSKELETAL: Negative for: Muscle or joint pain, stiffness, Joint swelling NEUROLOGIC/PSYCHIATRIC: Negative for: Weakness, Paralysis, Numbness, Tingling, Tremor, Anxiety, Depression, Memory loss SKIN: Negative for: Rash, Itching GENITOURINARY: Negative for: vaginal itching, vaginal discharge, hematuria or dysuria PHYSICAL EXAM: LMP 11/22/2022 GENERAL: pleasant in no apparent distress DERMATOLOGY: Normal, without lesions, non-icteric, and non-hirsute NECK: Supple, full range of motion, no adenopathy, and thyroid normal CHEST: Normal inspiratory effort BREAST: soft, non-tender, symmetric, no dominant mass, normal nipple-areolar complex, no lymphadenopathy, and no nipple discharge ABDOMEN: soft, non-tender, and no masses NEURO: alert and oriented x3,exam grossly non-focal PELVIS: External genitalia normal without lesions. Perineal body intact. No vaginal or cervical lesions. Cervix closed. Uterus 8 week size. No adnexal masses or tenderness. Clinical Pelvimetry: Pelvimetry clinically assessed as adequate Limited OB ultrasound exam: positive cardiac activity OB Risk Screening: Completed, no positive findings documented. ASSESSMENT: 22 year old at 8w1d wks gestational age PLAN: 1) Patient oriented to practice. Patient given new OB orientation folder. Discussed nutrition, folic acid supplementation, dietary guidelines, exercise, smoking, alcohol, caffeine, and drug use. Discussed gestational weight gain guidelines. Discussed routine OB labs including STD/HIV. 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 Discussed aneuploidy and carrier screening. Regarding aneuploidy screening, nuchal translucency/first trimester early anatomy ultrasound and NIPT were discussed. Regarding carrier screening, the myriad screen was discussed. The risks/benefits and limitations of NIPT/aneuploidy screening were reviewed including the potential for false negative and false positive results. We discussed the availability of professional-society guided carrier screening and reviewed the conditions screened and limitations of screening. The availability of genetic counseling was reviewed. Information on aneuploidy/carrier screening was provided. The patient chooses: Aneuploidy screening: chooses to proceed with First trimester early anatomy ultrasound (12-13w6d) and NIPT (10 weeks) and Carrier screening: Declines Patient offered option of Virtual Visits. Patient unsure. May consider in future. constipation- trial of colace rx for PNV given Follow up in 4 weeks or sooner prn. Malcolm Forrest MD documented in this encounter [facility] 01-13-2023 Note HNO ID: [id number] Author: Emily Radford RN Service: ? Author Type: ? Type: Progress Notes Filed: 01/13/2023 10:31 AM Note Text: # 1 - Date: 10/07/17, Sex: Female, Weight: 8 lb 4.5 oz (3.756 kg), GA: 41w0d, Delivery: Vaginal, Spontaneous, Apgar1: None, Apgar5: None, Living: Living, Comments: IOL for postdates, maternal fever-baby had fever too-hospitalized 5 days # 2 - Date: 03/13/20, Sex: Female, Weight: 6 lb 4.5 oz (2.849 kg), GA: 39w3d, Delivery: Vaginal, Spontaneous, Apgar1: None, Apgar5: None, Living: Living, Comments: 1st trimester spotting,elective induction d/t maternal discomfort, pitocin AROM, EBL 200cc # 3 - Date: 12/23/21, Sex: Male, Weight: 9 lb (4.082 kg), GA: 39w2d, Delivery: Vaginal, Spontaneous, Apgar1: 9, Apgar5: 9, Living: Living, Comments: elective induction, EBL 300mL, 1st degree perineal laceration # 4 - Date: None, Sex: None, Weight: None, GA: None, Delivery: None, Apgar1: None, Apgar5: None, Living: None, Comments: None [facility] 01-13-2023 History of Present illness Narrative # 1 - Date: 10/07/17, Sex: Female, Weight: 8 lb 4.5 oz (3.756 kg), GA: 41w0d, Delivery: Vaginal, Spontaneous, Apgar1: None, Apgar5: None, Living: Living, Comments: IOL for postdates, maternal fever-baby had fever too-hospitalized 5 days # 2 - Date: 03/13/20, Sex: Female, Weight: 6 lb 4.5 oz (2.849 kg), GA: 39w3d, Delivery: Vaginal, Spontaneous, Apgar1: None, Apgar5: None, Living: Living, Comments: 1st trimester spotting,elective induction d/t maternal discomfort, pitocin AROM, EBL 200cc # 3 - Date: 12/23/21, Sex: Male, Weight: 9 lb (4.082 kg), GA: 39w2d, Delivery: Vaginal, Spontaneous, Apgar1: 9, Apgar5: 9, Living: Living, Comments: elective induction, EBL 300mL, 1st degree perineal laceration # 4 - Date: None, Sex: None, Weight: None, GA: None, Delivery: None, Apgar1: None, Apgar5: None, Living: None, Comments: None documented in this encounter [facility] 01-13-2023 Miscellaneous Notes DISTANCE HEALTH VISIT This Team Access Model visit is a phone encounter. It required patient-provider interaction for the medical decision making as documented below. Patient was considering termination but has decided to continue with . Her previous delivery was December 23, 2021. Her last child weighed 9 pounds at . Patient is Rh-. She did have maternal anti-D antibodies with her last . Patient desires aneuploidy screening. Contact information for [facility] given to patient to check on insurance coverage. Patient declined genetic carrier screening testing. Patient desires tubal ligation.Emily Radford RN documented in this encounter [facility] 12-28-2022 Note HNO ID: [id number] Author: Malcolm Forrest MD Service: ? Author Type: Physician Type: Progress Notes Filed: 12/28/2022 12:02 PM Note Text: Jhon Patel is a 21 year old female who presents for problem visit for sterilization consult . HPI: 21 YOF would like permanent sterilization. However, had +HCG a few days ago. Is not wanting to be at this time. Had a difficult last time. Has no other c/o today other than small amount of pelvic cramping diffusely OB History T3 L3 SAB0 IAB0 Ectopic0 Multiple0 Live Births3 [employer] Supervisor History LMP: 11/22/2022 (Exact Date), Unknown Age at Menarche: Age at First : Age at Menopause: [employer] Supervisor History Comments: Sexual Activity: Yes; Male Contraception: Condom PAST MEDICAL HISTORY Diagnosis Date Abdominal pain 01/15/2013 Anemia Blood in stool Chlamydia 2017 Maternal care for anti-D (Rh) antibodies in first trimester 09/17/2019 PAST SURGICAL HISTORY Procedure Laterality Date COLONOSCOPY 02/20/13 Negative EGD 02/20/13 Negative HYSTEROSCOPY BX ENDOMETRIUMAND/POLYPC W/WO DANDC 04/19/2019 hysteroscopy DANDC, no polyp noted- chronic endometritis and proliferative endometrium FAMILY HISTORY Problem Relation Age of Onset No Known Problems Mother Hypertension Father No Known Problems Sister No Known Problems Sister No Known Problems Brother Stroke Maternal Grandmother Thyroid Maternal Grandmother Heart Maternal Grandfather No Known Problems Paternal Grandmother No Known Problems Paternal Grandfather No Known Problems Daughter No Known Problems Daughter Social History Tobacco Use Smoking status: Former Years: 3.00 Types: Cigarettes Quit date: 06/04/2019 Years since quittin.5 Smokeless tobacco: Never Vaping Use Vaping Use: Never used Substance Use Topics Alcohol use: No Drug use: No No current outpatient medications on file. No current facility-administered medications for this visit. Allergies As of Date: 12/28/2022 Allergen Noted Reaction SULFA (SULFONAMIDE ANTIBIOTICS) 04/26/2006 Hives Fully Assessed 12/28/2022 REVIEW OF SYSTEMS Abdomen: No bloating, early satiety, indigestion, or increased flatulence. No abdominal pain, nausea, vomiting, diarrhea, or constipation. Allergies and current medication updated:Yes EXAM: Wt 121 lb 14.4 oz (55.3kg) LMP 11/22/2022 GENERAL: pleasant, female in no apparent distress ASSESSMENT AND PLAN: + test- recheck today, if quant increasing appropraitely plans to consult for termination. D/ wher importance of f/u for this, the earlier the better her options. If quant stable or decreased will manage early failure Risks, benefits and alternatives to sterilization have been discussed with the patient. She declines reversible options including LARC. She understands sterilization is permanent, irreversible, risks of failure, regret and ectopic. In addition she understands there are surgical risks as well. Her questions were answered to her satisfaction and consent was signed. Medical Decision Making: Medical Decision Making Level: 1 - N/A Malcolm Forrest MD [facility] 12-23-2022 Miscellaneous Notes Pt called and is notified of providers results and instructions. Pt voices understanding. Eileen Evans RN 1) +. See OB. Start MV. 2) Rest are okay with minor abnormalities probably related to changing metabolism with . Pt calling for lab results from yesterday. Tatum Alejo LPN documented in this encounter [facility] 12-22-2022 Note HNO ID: [id number] Author: Shahbaz Huerta MD Service: ? Author Type: Physician Type: Progress Notes Filed: 12/22/2022 10:13 AM Note Text: This note was created using [employer] Lab[employer]. Subjective Patient presents with: Jaw pain PCP No primary care provider on file. Jhon Patel is a 21 year old female. She had dental pain for 2 months. She had been calling dentists but had no appointment set up for one reason or another. She lost 20 pounds in 2 months for unclear reasons. She missed her period this month. Home tests were positive. Review of Systems Constitutional: Positive for unexpected weight change. Negative for appetite change, fatigue and fever. HENT: Positive for dental problem. Respiratory: Negative for shortness of breath. Cardiovascular: Negative for palpitations and leg swelling. Gastrointestinal: Positive for constipation. Negative for abdominal pain and diarrhea. Endocrine: Negative for polydipsia, polyphagia and polyuria. Genitourinary: Positive for menstrual problem. Skin: Negative. Neurological: Negative. ACTIVE PROBLEM LIST Abnormal Glucose Complicating Anxiety Murmur, Heart Rh Negative State in Antepartum Period Cervical High Risk Hpv (Human Papillomavirus) Test Positive Covid-19 Vaccine Series Declined Antepartum Anemia Complicating in Third Trimester Social History Tobacco Use Smoking status: Former Years: 3.00 Types: Cigarettes Quit date: 06/04/2019 Years since quittin.5 Smokeless tobacco: Never Vaping Use Vaping Use: Never used Substance Use Topics Alcohol use: No Drug use: No No current outpatient medications on file. No current facility-administered medications for this visit. Objective BP 98/60 (BP Site: Left Arm, BP Position: Sitting, BP Cuff Size: Regular Adult) Pulse 76 Resp 18 Wt 54.4 kg (120 lb) LMP 05/10/2022 (Within Days) BMI 24.24 kg/m? Physical Exam Constitutional: Appearance: She is not ill-appearing. HENT: Head: Normocephalic. Mouth/Throat: Mouth: Mucous membranes are moist. Pharynx: Oropharynx is clear. Eyes: Conjunctiva/sclera: Conjunctivae normal. Neck: Thyroid: No thyroid mass, thyromegaly or thyroid tenderness. Cardiovascular: Rate and Rhythm: Normal rate and regular rhythm. Heart sounds: No murmur heard. Pulmonary: Breath sounds: Normal breath sounds. Musculoskeletal: Right lower leg: No edema. Left lower leg: No edema. Lymphadenopathy: Cervical: No cervical adenopathy. Neurological: Mental Status: She is alert. Psychiatric: Mood and Affect: Mood normal. Behavior: Behavior normal. Assessment and Plan 1. Weight loss, unintentional - ICD9: 783.21, ICD10: R63.4 (primary diagnosis) - CBC - COMP METABOLIC PANEL - TSH BLD 2. Pain, dental - ICD9: 525.9, ICD10: K08.89 Information printed on resources for the [facility]. 3. Missed period - ICD9: 626.4, ICD10: N92.6 - HCG QUANTITATIVE Shahbaz Huerta MD [facility] 12-22-2022 History of Present illness Narrative This note was created using [employer]. Subjective Patient presents with: Jaw pain PCP No primary care provider on file. Jhon Patel is a 21 year old female. She had dental pain for 2 months. She had been calling dentists but had no appointment set up for one reason or another. She lost 20 pounds in 2 months for unclear reasons. She missed her period this month. Home tests were positive. Review of Systems Constitutional: Positive for unexpected weight change. Negative for appetite change, fatigue and fever. HENT: Positive for dental problem. Respiratory: Negative for shortness of breath. Cardiovascular: Negative for palpitations and leg swelling. Gastrointestinal: Positive for constipation. Negative for abdominal pain and diarrhea. Endocrine: Negative for polydipsia, polyphagia and polyuria. Genitourinary: Positive for menstrual problem. Skin: Negative. Neurological: Negative. ACTIVE PROBLEM LIST Abnormal Glucose Complicating Anxiety Murmur, Heart Rh Negative State in Antepartum Period Cervical High Risk Hpv (Human Papillomavirus) Test Positive Covid-19 Vaccine Series Declined Antepartum Anemia Complicating in Third Trimester Social History Tobacco Use Smoking status: Former Years: 3.00 Types: Cigarettes Quit date: 06/04/2019 Years since quittin.5 Smokeless tobacco: Never Vaping Use Vaping Use: Never used Substance Use Topics Alcohol use: No Drug use: No No current outpatient medications on file. No current facility-administered medications for this visit. Objective BP 98/60 (BP Site: Left Arm, BP Position: Sitting, BP Cuff Size: Regular Adult) Pulse 76 Resp 18 Wt 54.4 kg (120 lb) LMP 05/10/2022 (Within Days) BMI 24.24 kg/m Physical Exam Constitutional: Appearance: She is not ill-appearing. HENT: Head: Normocephalic. Mouth/Throat: Mouth: Mucous membranes are moist. Pharynx: Oropharynx is clear. Eyes: Conjunctiva/sclera: Conjunctivae normal. Neck: Thyroid: No thyroid mass, thyromegaly or thyroid tenderness. Cardiovascular: Rate and Rhythm: Normal rate and regular rhythm. Heart sounds: No murmur heard. Pulmonary: Breath sounds: Normal breath sounds. Musculoskeletal: Right lower leg: No edema. Left lower leg: No edema. Lymphadenopathy: Cervical: No cervical adenopathy. Neurological: Mental Status: She is alert. Psychiatric: Mood and Affect: Mood normal. Behavior: Behavior normal. Assessment and Plan 1. Weight loss, unintentional - ICD9: 783.21, ICD10: R63.4 (primary diagnosis) - CBC - COMP METABOLIC PANEL - TSH BLD 2. Pain, dental - ICD9: 525.9, ICD10: K08.89 Information printed on [facility]. 3. Missed period - ICD9: 626.4, ICD10: N92.6 - HCG QUANTITATIVE Shahbaz Huerta MD documented in this encounter [facility] 09-07-2022 Note HNO ID: [id number] Author: Taylor Vidales RT(R) Service: Radiology Author Type: Technologist Type: Progress Notes Filed: 09/07/2022 1:46 PM Note Text: Radiology Service Progress Note PATIENT NAME: Jhon Patel DATE OF SERVICE: September 07, 2022 TIME: 1:37 PM PATIENT IDENTITY VERIFICATION COMPLETED USING TWO (2) IDENTIFIERS: Name and Date of confirmed by patient verbally. FALL SCREENING: Has the patient had 2 falls in the last year or 1 fall with injury or currently using an Ambulatory Assistive Device (Walker, Cane, Wheelchair, Crutches, etc.)? No PATIENT GENDER DATA: Female. status: : No status: NO. PATIENT RELEVANT IMPLANT DATA REVIEWED: Yes RADIOLOGY DEPARTMENT: General X-ray: Exam(s) Completed: Chest X-Ray PERIPHERAL IV DATA: Not applicable SIGNED BY: RT Leonela(R) September 07, 2022 1:37 PM [facility] 09-07-2022 Note HNO ID: [id number] Author: Abena Ramsay APRN.BUTCHER ASSISTANT Service: ? Author Type: Nurse Practitioner Type: Progress Notes Filed: 09/07/2022 2:21 PM Note Text: CC: Patient presents with: Cough: Cough, sore throat, congestion and fever off and on x 1 month Sore from coughing HPI: Jhon Patel is a 21 year old female who presents to the office with complaint of head congestion, cough, nonproductive, sore throat, fever, on and off for a month. Symptoms are all coming and going except the cough Associated symptoms includes cough. Denies nausea, vomiting , and diarrhea. Treatments tried include OTC cold medicine with minor relief of symptoms. Sick contacts: unknown. History of asthma, frequent episodes of bronchitis, chronic bronchitis, bronchiectasis or COPD: No Smoker: No Seasonal/environmental allergies: No The ROS is otherwise negative. The patient's pmh, medications, allergies, and past visits are reviewed. PHYSICAL EXAM: BP 108/64 Pulse 90 Temp 37.3 ?C (99.2 ?F) (Tympanic) Resp 18 Wt 60.5 kg (133 lb 6.4 oz) LMP 05/10/2022 (Within Days) SpO2 100% BMI 26.94 kg/m? General appearance: alert, cooperative, pleasant, in no acute distress Head: Normocephalic Eyes: EOM's intact, conjunctiva pink and moist, no icterus, sclera white, non-injected Ears: Right ear: External ear/canal- Normal, TM - clear with good landmarks. Left ear: External ear/canal- Normal, TM - clear with good landmarks Oropharynx:moist without lesions, No erythema, exudates or tonsillar hypertrophy. Heart: Negative. RRR without obvious murmur, gallop, or rubs. No ectopy. Lungs: clear to auscultation, without rales or wheeze, good air exchange PAST MEDICAL HISTORY Diagnosis Date Abdominal pain 01/15/2013 Anemia Blood in stool Chlamydia 2018 Maternal care for anti-D (Rh) antibodies in first trimester 09/17/2019 PAST SURGICAL HISTORY Procedure Laterality Date COLONOSCOPY 02/20/13 Negative EGD 02/20/13 Negative HYSTEROSCOPY BX ENDOMETRIUMAND/POLYPC W/WO DANDC 04/19/2019 hysteroscopy DANDC, no polyp noted- chronic endometritis and proliferative endometrium ALLERGIES Sulfa (Sulfonamide Antibiotics) MEDICATIONS Ynaadwms-Yo-Swi-Fe-FA ( VITAMIN) tab Take 1 tablet by mouth once daily. (Patient not taking: No sig reported) FAMILY HISTORY Problem Relation Age of Onset No Known Problems Mother Hypertension Father No Known Problems Sister No Known Problems Sister No Known Problems Brother Stroke Maternal Grandmother Thyroid Maternal Grandmother Heart Maternal Grandfather No Known Problems Paternal Grandmother No Known Problems Paternal Grandfather No Known Problems Daughter No Known Problems Daughter Social History Tobacco Use Smoking status: Former Years: 3.00 Types: Cigarettes Quit date: 06/04/2019 Years since quittin.2 Smokeless tobacco: Never Vaping Use Vaping Use: Never used Substance Use Topics Alcohol use: No Drug use: No ASSESSMENT/PLAN: 1. Acute cough - ICD9: 786.2, ICD10: R05.1 (primary diagnosis) - XR CHEST 2V FRONTAL/LAT * * * * Physician Interpretation * * * * EXAMINATION: CHEST RADIOGRAPH (2 VIEW FRONTAL AND LATERAL) CLINICAL HISTORY: Acute cough MQ: XC2_6 EXAM DATE/TIME: 09/07/2022 1:48 PM COMPARISON: Chest x-ray dated May 01, 2021 RESULT: Lines, tubes, and devices: None. Lungs and pleura: No consolidation. No lung mass. No pleural effusion. No pneumothorax. Cardiomediastinal silhouette: Normal cardiomediastinal silhouette. Bones and soft tissues: Unremarkable. IMPRESSION IMPRESSION: No acute radiographic abnormality. Ems Driver: PSCAdelaide Transcribe Date/Time: Sep 07 2022 1:56P Dictated by : PANCHITO NAPOLES MD 2. Sore throat - ICD9: 462, ICD10: J02.9 - STREP A MOLECULAR (POC) - neg At this time patient was placed on doxycycline twice a day for 7 days. Prescription instructions reviewed with patient as applicable. Potential red flag symptoms discussed with the patient. Reviewed appropriate action plan to take if red flag symptoms occur. Patient will get established with a PCP and follow-up with her PCP for more testing. Patient agreeable to treatment plan. Abena Ramsay APRN.[facility] 09-07-2022 History of Present illness Narrative CC: Patient presents with: Cough: Cough, sore throat, congestion and fever off and on x 1 month Sore from coughing HPI: Jhon Patel is a 21 year old female who presents to the office with complaint of head congestion, cough, nonproductive, sore throat, fever, on and off for a month. Symptoms are all coming and going except the cough Associated symptoms includes cough. Denies nausea, vomiting , and diarrhea. Treatments tried include OTC cold medicine with minor relief of symptoms. Sick contacts: unknown. History of asthma, frequent episodes of bronchitis, chronic bronchitis, bronchiectasis or COPD: No Smoker: No Seasonal/environmental allergies: No The ROS is otherwise negative. The patient's pmh, medications, allergies, and past visits are reviewed. PHYSICAL EXAM: BP 108/64 Pulse 90 Temp 37.3 C (99.2 F) (Tympanic) Resp 18 Wt 60.5 kg (133 lb 6.4 oz) LMP 05/10/2022 (Within Days) SpO2 100% BMI 26.94 kg/m General appearance: alert, cooperative, pleasant, in no acute distress Head: Normocephalic Eyes: EOM's intact, conjunctiva pink and moist, no icterus, sclera white, non-injected Ears: Right ear: External ear/canal- Normal, TM - clear with good landmarks. Left ear: External ear/canal- Normal, TM - clear with good landmarks Oropharynx:moist without lesions, No erythema, exudates or tonsillar hypertrophy. Heart: Negative. RRR without obvious murmur, gallop, or rubs. No ectopy. Lungs: clear to auscultation, without rales or wheeze, good air exchange PAST MEDICAL HISTORY Diagnosis Date Abdominal pain 01/15/2013 Anemia Blood in stool Chlamydia 2018 Maternal care for anti-D (Rh) antibodies in first trimester 09/17/2019 PAST SURGICAL HISTORY Procedure Laterality Date COLONOSCOPY 02/20/13 Negative EGD 02/20/13 Negative HYSTEROSCOPY BX ENDOMETRIUM&/POLYPC W/WO D&C 04/19/2019 hysteroscopy D&C, no polyp noted- chronic endometritis and proliferative endometrium ALLERGIES Sulfa (Sulfonamide Antibiotics) MEDICATIONS Bebvcuzl-Zb-Cmn-Fe-FA ( VITAMIN) tab Take 1 tablet by mouth once daily. (Patient not taking: No sig reported) FAMILY HISTORY Problem Relation Age of Onset No Known Problems Mother Hypertension Father No Known Problems Sister No Known Problems Sister No Known Problems Brother Stroke Maternal Grandmother Thyroid Maternal Grandmother Heart Maternal Grandfather No Known Problems Paternal Grandmother No Known Problems Paternal Grandfather No Known Problems Daughter No Known Problems Daughter Social History Tobacco Use Smoking status: Former Years: 3.00 Types: Cigarettes Quit date: 06/04/2019 Years since quittin.2 Smokeless tobacco: Never Vaping Use Vaping Use: Never used Substance Use Topics Alcohol use: No Drug use: No ASSESSMENT/PLAN: 1. Acute cough - ICD9: 786.2, ICD10: R05.1 (primary diagnosis) - XR CHEST 2V FRONTAL/LAT * * * * Physician Interpretation * * * * EXAMINATION: CHEST RADIOGRAPH (2 VIEW FRONTAL & LATERAL) CLINICAL HISTORY: Acute cough MQ: XC2_6 EXAM DATE/TIME: 09/07/2022 1:48 PM COMPARISON: Chest x-ray dated May 01, 2021 RESULT: Lines, tubes, and devices: None. Lungs and pleura: No consolidation. No lung mass. No pleural effusion. No pneumothorax. Cardiomediastinal silhouette: Normal cardiomediastinal silhouette. Bones and soft tissues: Unremarkable. IMPRESSION IMPRESSION: No acute radiographic abnormality. Ems Driver: DAXA Transcribe Date/Time: Sep 07 2022 1:56P Dictated by : PANCHITO NAPOLES MD 2. Sore throat - ICD9: 462, ICD10: J02.9 - STREP A MOLECULAR (POC) - neg At this time patient was placed on doxycycline twice a day for 7 days. Prescription instructions reviewed with patient as applicable. Potential red flag symptoms discussed with the patient. Reviewed appropriate action plan to take if red flag symptoms occur. Patient will get established with a PCP and follow-up with her PCP for more testing. Patient agreeable to treatment plan. Abena Ramsay APRN.ALIX documented in this encounter [facility] 05-26-2022 Instructions Nataliya Linda APRN.BUTCHER ASSISTANT - 05/26/2022 11:47 AM EDT Docusate sodium twice a day Mirilax in the morning Add vegetable and fruit to diet. Change bread for multi-grain bread. Squatty Potty Constipation Constipation can be an unpleasant topic to talk about. Most people have experienced constipation at some point in their life. Though typically not serious, constipation can be both painful and frustrating. What is constipation? Constipation occurs when bowel movements become difficult or less frequent than normal. The frequency or time between bowel movements ranges widely from person to person. Some people have bowel movements several times a day while others only one to two times a week. Going longer than three days without a bowel movement is too long. After three days, the stool becomes harder and more difficult to pass. What causes constipation? Constipation is most commonly caused by inadequate fiber in the diet or a disruption of the regular diet or routine. Chronic constipation may be due to a poor diet, dehydration, certain medications (such as antidepressants, strong pain medications), stress, or the pressure of other activities that force you to ignore the urge to empty the bowel. Various medical conditions can also cause or aggravate constipation. Some of the more common medical conditions that cause constipation include endocrine problems, such as decreased function of the thyroid gland or diabetes. Colorectal cancer is another medical condition that can cause constipation but it usually also accompanied by other symptoms including blood in the stool and weight loss. Common causes of constipation include the following: A diet low in fiber Not drinking enough water Lack of exercise Travel or another change in routine Eating large amounts of milk or cheese Stress or resisting the urge to have a bowel movement Medications strong pain medicines such as narcotics antidepressants antacids containing calcium or aluminum such as TUMS iron pills allergy medications such as antihistamines certain blood pressure medicines psychiatric medications herbal supplements Irritable bowel syndrome (IBS) Neurologic disorders including spinal cord injury and multiple sclerosis (MS) Slow transit of the colon How is constipation evaluated? Most people do not need extensive testing to evaluate constipation. Only a small number of patients with constipation have a serious underlying medical problem (such as poor function of the thyroid gland, diabetes, or colorectal cancer). If you have constipation that has persisted for more than two weeks, you should see a doctor to determine if you need further evaluation. For a patient who has colorectal cancer, early detection and treatment may be life-saving. Standard evaluation for constipation includes performing blood tests and examining the colon by colonoscopy, particularly for patients older than 50 years.. Other tests include colonic transit studies (time it takes for stools to move through the colon) and anal manometry (measures pressure and muscle function in the rectum and anus). Most patients with serious constipation, and without any obvious illness to explain their symptoms, suffer from one of two problems: Colonic inertia (also called lazy colon): a condition in which the colon contracts poorly and retains stool. This can be determined by colon transit studies. Obstructed defecation: a condition in which the colon contracts normally, but the patient is unable to expel stool from the rectum. This condition can be confirmed by a test called anal manometry. How can I prevent constipation? Eat a well-balanced diet with plenty of fiber. Good sources of fiber are fruits, vegetables, legumes, and whole-grain breads and cereals. Fiber and water help the colon pass stool. Most of the fiber in fruits is found in the skins, such as in apples. Fruits with seeds you can eat, like strawberries, have the most fiber. Bran is a great source of fiber: eat bran cereal or add bran cereal to other foods, like soup and yogurt. Drink eight 8-ounce glasses of water a day. (Note: Milk can cause constipation in some people.) Liquids that contain caffeine, such as coffee and soft drinks, have a dehydrating effect and may need to be avoided until your bowel habits return to normal. Exercise regularly. Move your bowels when you feel the urge. How is constipation treated? Drink two to four extra glasses of water a day. Try warm liquids, especially in the morning. Add fruits and vegetables to your diet. Eat prunes and/or bran cereal. Add supplemental fiber to your diet (there are several types, such as Metamucil, Citrucel, and Benefiber). If needed, use a very mild stool softener or laxative (such as colace [docusate] or Milk of Magnesia). Do not use laxatives for more than two weeks without calling your health care provider, as laxative overuse can aggravate your symptoms. When should I call my health care provider? Call your health care provider if: Constipation is a new problem for you. You have blood in your stool. You are losing weight unintentionally. You have severe pain with bowel movements. Your constipation has lasted more than three weeks. Where can I learn more? National Digestive Diseases Information Clearinghouse2 Information [place], [place] [address] www.digestive.niddk.nih.gov email: nddic@info.nddik.[facility].gov References: National Digestive Diseases Information Clearinghouse. Constipation. digestive.niddk.nih.gov Accessed May 19, 2012. [employer]. Understanding Constipation. www.gastro.org. Accessed May 19, 2012. Copyright 6550-9639 The [facility]. All rights reserved This information is provided by the [facility] and is not intended to replace the medical advice of your doctor or health care provider. Please consult your health care provider for advice about a specific medical condition. For additional health information, please contact the Center for Consumer Health Information at the [facility] or toll-free extension [phone]. If you prefer, you may visit [email or web address]/health/ or [email or web address].[email or web address]. This document was last reviewed on: 2012 index #0401 Hemorrhoids Hemorrhoids are veins covered with the lining of the anal canal located in or around the anus. Hemorrhoids can be external, internal or a combination of both (interno-external). External hemorrhoids can be skin alone or skin with a vein underneath. Internal hemorrhoids are dilated veins which protrude inside when small or can sometimes extend outside the anus either after a bowel movement; they can also be present externally all the time. Hemorrhoids are usually not painful. Small hemorrhoids cannot be seen but can bleed after a hard bowel movement/straining or too frequent bowel movements. Hemorrhoids that protrude out after a bowel movement often go back in spontaneously. Occasionally they have to be manually pushed in. Hemorrhoids that protrude out and do not go back in can sometimes get large and form a clot; these are called thrombosed prolapsed hemorrhoids. External hemorrhoids can also form a clot and this can be very painful; this is called a thrombosed external hemorrhoid. Certain conditions may cause internal hemorrhoids to bulge, become irritated, and bleed, including: Trauma during childbirth The extra weight of Obesity Chronic constipation with straining Anal intercourse What are the symptoms of internal hemorrhoids? Painless rectal bleeding on the toilet paper or in the toilet bowl is the most common symptom. Pain can occur with thrombosed hemorrhoids or hemorrhoids that can suddenly not be reposited in the anal canal. Another symptom is the protrusion of the hemorrhoids after a bowel movement; the hemorrhoids either spontaneously go back in or have to be pushed in manually. What are the symptoms of external hemorrhoids? A grape-like lump on the anus Itching and soreness in and around the anus Blood on underwear, toilet paper, the surface of the stool, or in the toilet bowl What causes hemorrhoids? Hemorrhoids are caused by repeated pressure and strain, which might be caused by: Straining at stool Frequent constipation (hard or difficult bowel movements) Diarrhea (frequent, loose, watery stool) (especially in the third trimester) Cirrhosis of the liver (can cause pooling of blood in the vessels around the rectum) How are hemorrhoids diagnosed? Usually, an explanation of your symptoms is an important clue to your doctor. On examination, external hemorrhoids and bulging hemorrhoids may be visible. When hemorrhoids are not visible beyond the anus, your doctor will examine the inside of the anal canal using a lighted instrument called an anoscope. Often, your doctor will recommend a detailed examination of your sigmoid colon and rectum using a lighted scope (a procedure called flexible sigmoidoscopy) to ensure that there is no inflammatory disease such as Crohn's disease or ulcerative colitis or cancer. How can I relieve the acute pain? Take warms soaks in the bath (sitz baths). Sit in plain, warm water for about 10 minutes several times a day. Apply a hemorrhoid cream, or use a suppository. Follow the directions on the package. Don't strain during bowel movements. Keep stools soft. See your doctor. How can I relieve constipation? Increase the amount of fiber in your diet. Good sources of fiber are fruits, vegetables, and whole grains. Five to ten servings of fruits and vegetables are recommended each day. Fiber supplements might be helpful - examples include Metamucil and Citrucel . Sparingly use [id number] laxatives or stool softeners. Stool softeners such as Colace are relatively safe, but prolonged use of osmotic or stimulant laxatives might not be. Exercise regularly. Even walking regularly helps improve the normal flow of material through the intestine. Empty the bowels when you feel the urge to do so. Immediately following a meal, the body will have a natural urge to defecate. That's a good time to plan a visit to the bathroom. How can I prevent hemorrhoids? The best way to prevent hemorrhoids is to keep bowel movements regular and stool soft. Try some of the tips for relieving constipation listed above. Also, avoid prolonged standing, sitting, and heavy lifting, and chronic coughing, straining at stool, and aggressive wiping. How are hemorrhoids treated? Occasional rectal bleeding can be controlled by keeping the stools regular and soft. An examination is essential to rule out other causes of bleeding. Painful hemorrhoids can be treated with: Warm tub baths several times a day in plain, warm water for about 10 minutes In some cases, hemorrhoids must be treated surgically. Surgery is used to shrink and or excise (cut out) the hemorrhoidal tissue. A number of methods might be used to remove or reduce the size of internal hemorrhoids. These techniques include: Rubber band ligation - A rubber band is placed around the base of the hemorrhoid inside the rectum. The band cuts off circulation, causing the hemorrhoid to wither away within a few days. This can be done in an office setting and does not need anesthesia. Sclerotherapy - A chemical solution is injected around the blood vessel to shrink the hemorrhoid. This is not done routinely for hemorrhoids. Infrared coagulation - A special device is used to burn hemorrhoidal tissue. This can treat small hemorrhoids. Procedure for prolapsed hemorrhoids (PPH) - This is done for hemorrhoids that come out of the anal canal. This is done under anesthesia and uses a device to fix the hemorrhoids at the position from where they came down. Hemorrhoidal arterial ligation - This can be done for different grades of hemorrhoids and uses a Doppler probe to identify and tie the vessels feeding the hemorrhoid, thereby shrinking it. Hemorrhoidectomy - Occasionally, extensive or severe internal or external hemorrhoids might require removal by surgery known as hemorrhoidectomy. This procedure involves excision of the hemorrhoid and the skin overlying it. Copyright 2582-9637 The [facility]. All rights reserved This information is provided by the [facility] and is not intended to replace the medical advice of your doctor or health care provider. Please consult your health care provider for advice about a specific medical condition. For additional health information, please contact the [facility] Information at the [facility] or toll-free extension [phone]. If you prefer, you may visit [email or web address] or [email or web address]. This document was last reviewed on: 2009 index#[id number] documented in this encounter [facility] 05-26-2022 History of Present illness Narrative Jhon is a 21 year old who presents for an annual gynecologic exam with complaints, constipation and hemorrhoids . Menses: cycles every 28-30 days and 4-5 days of flow. Contraception: condoms. Considering tubal sterilization. HPV vaccine: Yes Last Pap: 05/27/2021 ASCUS HPV: 05/29/2021 HRHPV postive History of abnormal pap: Yes Last mammogram: never Sexually active: Yes History of STDS: HPV, chlamydia Patient concerns for STD exposure: No. Time with current partner: 3 years Pain with intercourse: Yes - sometimes if constipated Postcoital bleeding: No OB History T3 L3 SAB0 IAB0 Ectopic0 Multiple0 Live Births3 [employer] History LMP: 05/10/2022 (Within Days), Unknown Age at Menarche: Age at First : Age at Menopause: [employer] History Comments: Sexual Activity: Yes; Male Contraception: Condom PAST MEDICAL HISTORY Diagnosis Date Abdominal pain 01/15/2013 Anemia Blood in stool Chlamydia 2017 Maternal care for anti-D (Rh) antibodies in first trimester 09/17/2019 PAST SURGICAL HISTORY Procedure Laterality Date COLONOSCOPY 02/20/13 Negative EGD 02/20/13 Negative HYSTEROSCOPY BX ENDOMETRIUM&/POLYPC W/WO D&C 04/19/2019 hysteroscopy D&C, no polyp noted- chronic endometritis and proliferative endometrium FAMILY HISTORY Problem Relation Age of Onset No Known Problems Mother Hypertension Father No Known Problems Sister No Known Problems Sister No Known Problems Brother Stroke Maternal Grandmother Thyroid Maternal Grandmother Heart Maternal Grandfather No Known Problems Paternal Grandmother No Known Problems Paternal Grandfather No Known Problems Daughter No Known Problems Daughter SOCIAL HISTORY Social History Tobacco Use Smoking status: Former Years: 3.00 Types: Cigarettes Quit date: 06/04/2019 Years since quittin.9 Smokeless tobacco: Never Vaping Use Vaping Use: Never used Substance Use Topics Alcohol use: No Drug use: No REVIEW OF SYSTEMS Abdomen: No abdominal pain, nausea, vomiting, diarrhea. No bloating, early satiety, indigestion, or increased flatulence. BM every 3-4 days. Stool is hard and looks like big clumps. Never feels like she fully empties. Hemorrhoids flare and bleed afterwards - bleeding is bright red.and then has itching over then next few days. Treating with witch mel pads. Bladder: No dysuria, gross hematuria, urinary frequency, urinary urgency, or incontinence. Breast: No breast lumps, nipple d/c, overlying skin changes, redness or skin retraction. Allergies and current medication updated:Yes EXAM: BP 92/60 Ht 4' 11 (1.50m) Wt 142 lb (64.4kg) LMP 05/10/2022 BMI 28.67 kg/(m^2). GENERAL: pleasant, female in no apparent distress HEENT: Normocephalic, atraumatic, mucus membranes moist, and no lesions NECK: Supple, full range of motion, no adenopathy, and thyroid normal DERMATOLOGY: Normal, without lesions, non-icteric, and non-hirsute BREAST: soft, non-tender, symmetric, no dominant mass, normal nipple-areolar complex, no lymphadenopathy, and no nipple discharge CHEST: Normal inspiratory effort ABDOMEN: soft, non-tender, and no masses PELVIC: external genitalia normal, normal Bartholin's glands, urethra, Belvoir's glands, no vulvar lesions, no cervical lesions, good vaginal support, physiologic discharge present, normal appearing perineal body and perianal region BIMANUAL: uterus normal size, shape and consistency, no adnexal masses, and non-tender RECTOVAGINAL: one flesh-colored soft external hemorrhoid NEURO: alert and oriented x3,exam grossly non-focal EXTREMITIES: normal ASSESSMENT/PLAN: 1) Health maintenance: Pap done with reflex HPV. Nutrition, exercise and routine health maintenance exams reviewed. HPV vaccine: completed series 2. Constipation, unspecified constipation type - ICD9: 564.00, ICD10: K59.00 - Long-term since childhood. - Docusate sodium twice a day - Miralax in the morning - Add vegetables and fruit to diet. Change bread for multi-grain - Squatty Potty - given constipation written information 3. Hemorrhoids, unspecified hemorrhoid type - ICD9: 455.6, ICD10: K64.9 - manage constipation, avoid straining. - Continue witch mel pads. - given written information on hemorrhoids 4) Contraception: condoms. Contraceptive options reviewed and information provided. Considering tubal sterilization and will make appt with [facility] if she wants to proceed. 3) STD screening: Accepted STD check for Gonorrhea and Chlamydia. 4) Follow up one year or sooner as needed Nataliya Linda APRN.ALIX documented in this encounter [facility] 02-19-2022 Miscellaneous Notes Patient identified by VM message, left message with results and to follow up with PCP for worsening or persistent symptoms. Neda Eaton MA The ova and parasite results were negative if symptoms persist please see PCP. Thank you documented in this encounter [facility] 02-12-2022 Miscellaneous Notes Phone call placed patient advised (see prior provider encounter) Patient reported stool cultures have not been dropped off to process at this time. Jaylin Higuera LPN Please let patient know that all labs, except stool cultures pending and ultrasound are normal. If still having problems recommend further work up with GI, and obtain stool cultures. Referral placed to GI Lisa Pedraza APRN.ALIX documented in this encounter [facility] 02-12-2022 Miscellaneous Notes I called and spoke with patient regarding labs and ultrasound. I did call in omeprazole to help with the epigastric pain. Recommended she still do the stool studies. Follow-up with GI. Patient agreeable with plan. documented in this encounter [facility] 02-11-2022 History of Present illness Narrative This note was created using [employer]. Subjective Jhon Patel is a 21 year old female. HPI Patient presents with diarrhea, abdominal pain, bloody stools. She has had diarrhea for 2 weeks and bowel movements have been painful. She has noticed some blood in stool and when she wipes after bowel movements. She is having some epigastric pain as well for the past week. No vomiting. Pain is worse after she eats. She is 6.5 weeks post vaginal delivery. She denies lightheadedness or dizziness. No fever. No cough or congestion. No recent travel. She was on flagyl a couple weeks ago for bv. She denies hx of GERD or gall bladder problems. She is not currently breast feeding. No dysuria or urgency. Review of Systems Constitutional: Positive for fatigue. Negative for fever. HENT: Negative. Negative for congestion, ear pain, postnasal drip, rhinorrhea and sore throat. Respiratory: Negative for cough and shortness of breath. Cardiovascular: Negative. Gastrointestinal: Positive for abdominal pain, anal bleeding, blood in stool, diarrhea and rectal pain. Negative for constipation, nausea and vomiting. All other systems reviewed and are negative. 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 hydrocortisone (ANUSOL-HC) 25 mg suppository 1 Suppository by RECTAL route twice daily as needed (hemorrhoids/rectal pain) for up to 7 days. 14 Suppository 0 Ferrous Gluconate 240 mg (27 mg iron) tablet TAKE 1 TABLET BY MOUTH EVERY OTHER DAY (Patient not taking: Reported on 01/20/2022) 15 tablet 2 Lblmmylw-Vz-Tua-Fe-FA ( VITAMIN) tab Take 1 tablet by mouth once daily. (Patient not taking: Reported on 01/20/2022 ) No current facility-administered medications for this visit. PAST SURGICAL HISTORY Procedure Laterality Date COLONOSCOPY 02/20/13 Negative EGD 02/20/13 Negative HYSTEROSCOPY BX ENDOMETRIUM&/POLYPC W/WO D&C 04/19/2019 hysteroscopy D&C, no polyp noted- chronic endometritis and proliferative endometrium FAMILY HISTORY Problem Relation Age of Onset No Known Problems Mother Hypertension Father No Known Problems Sister No Known Problems Sister No Known Problems Brother Stroke Maternal Grandmother Thyroid Maternal Grandmother Heart Maternal Grandfather No Known Problems Paternal Grandmother No Known Problems Paternal Grandfather No Known Problems Daughter No Known Problems Daughter Social History Tobacco Use Smoking status: Former Smoker Years: 3.00 Types: Cigarettes Quit date: 06/04/2019 Years since quittin.6 Smokeless tobacco: Never Used Vaping Use Vaping Use: Never used Substance Use Topics Alcohol use: No Drug use: No Objective BP 122/64 Pulse 70 Temp 36.9 C (98.5 F) Resp 21 Wt 71.9 kg (158 lb 9.6 oz) LMP 03/23/2021 (Approximate) SpO2 99% BMI 32.03 kg/m Physical Exam Vitals reviewed. Constitutional: General: She is not in acute distress. Appearance: Normal appearance. She is not ill-appearing. HENT: Head: Normocephalic and atraumatic. Mouth/Throat: Mouth: Mucous membranes are moist. Cardiovascular: Rate and Rhythm: Normal rate and regular rhythm. Heart sounds: Normal heart sounds. Pulmonary: Effort: Pulmonary effort is normal. Breath sounds: Normal breath sounds. Abdominal: General: Abdomen is flat. Palpations: Abdomen is soft. Comments: Pt ttp on the right upper quadrant and epigastric area. No guarding or rebound. Abdomen soft and non distended. No peritoneal signs. Musculoskeletal: Cervical back: Neck supple. Skin: General: Skin is warm and dry. Neurological: Mental Status: She is alert. Assessment and Plan ASSESSMENT/PLAN: 1. Diarrhea, unspecified type - ICD9: 787.91, ICD10: R19.7 (primary diagnosis) Will check stool studies to rule out infectious cause. BRAT diet discussed. Consider follow up with gi/pcp. - ENTERIC BACTERIAL PANEL BY PCR - C. DIFFICILE PCR - OVA + PARA MICROSCOPIC - FECAL OCCULT BLOOD TEST 2. Epigastric pain - ICD9: 789.06, ICD10: R10.13 Labs/us obtained to rule out gallbladder etiology of pain, will call on results. May benefit from ppi if negative labs and US, suspect GERD. Abdomen benign on exam today. Red flags for er discussed. - CBC + DIFF - COMP METABOLIC PANEL - LIPASE BLD - US ABD RT UPPER QUADRANT - OVA + PARA MICROSCOPIC 3. Bloody stool - ICD9: 578.1, ICD10: K92.1 Likely secondary to hemorrhoid. anusol sent. - FECAL OCCULT BLOOD TEST 4. External hemorrhoid - ICD9: 455.3, ICD10: K64.4 anusol rx. Likely exacerbated by diarrhea. Savannah Brito PA-C documented in this encounter [facility] 01-20-2022 History of Present illness Narrative SUBJECTIVE: Jhon Patel is an 21 year old woman who presents with vaginitis. Symptoms include odor. Onset of symptoms 2 day(s) ago, constant since. She was seen on 01/04/22 and was positive for BV. Treated with metro gel vaginally. She did not want to take oral antibiotics due to them upsetting her stomach. She reports only treating herself for 3 out of the 5 days and thinks the infection has returned because she has noticed an odor. Predisposing factors: none Hx of previous vaginitis: rare Sexually active: 3 weeks Current Outpatient Medications on File Prior to Visit Medication Sig Lactobacillus acidophilus (PROBIOTIC ORAL) Take by mouth. Ferrous Gluconate 240 mg (27 mg iron) tablet TAKE 1 TABLET BY MOUTH EVERY OTHER DAY (Patient not taking: Reported on 01/20/2022) Thbmwqob-By-Cwb-Fe-FA ( VITAMIN) tab Take 1 tablet by mouth once daily. (Patient not taking: Reported on 01/20/2022 ) No current facility-administered medications on file prior to visit. ALLERGIES Allergen Reactions Sulfa (Sulfonamide * Hives Social History Tobacco Use Smoking status: Former Smoker Years: 3.00 Types: Cigarettes Quit date: 06/04/2019 Years since quittin.6 Smokeless tobacco: Never Used Vaping Use Vaping Use: Never used Substance Use Topics Alcohol use: No Drug use: No OBJECTIVE: BP 118/70 Wt 160 lb 6.4 oz (72.8 kg) LMP 03/23/2021 (Approximate) BMI 32.40 kg/m Pelvic: Bimanual exam normal. ASSESSMENT/PLAN: 1. Vaginal odor - ICD9: 625.8, ICD10: N89.8 - BACT/ROMELIA VAG GRAM STAIN- if returns positive- patient desires treatment with vaginal gel again. Educated on importance of completing entire medication regimen. Patient voiced understanding. Will notify patients of results and any treatment options. RTO- Already scheduled visit. Savanna Velazquez APRN.CNM documented in this encounter [facility] 01-08-2022 Miscellaneous Notes Left detailed on identified voicemail. Tami Galvin RN Bleeding light to moderate flow is still normal at this time. As long as not passing any large clots or persistent heavy bleeding nothing to worry about. Patient delivered on 12/23/21. Started Metrogel 2 days ago for +BV. States yesterday she noted having small amount of red bleeding. Today she is having brown almost black chunky discharge. Mild cramping. Asking if this is normal. Tami Galvin RN documented in this encounter [facility] 01-06-2022 Miscellaneous Notes Patient notified RX was sent. Tami Galvin RN Filed Patient was prescribed Flagyl for +BV. Asking for a cream or gel form instead. Metrogel RX pending. Please file in CP's absence. Patient aware that no providers are currently in the office. Thank you. Tami Galvin RN documented in this encounter [facility] 01-04-2022 History of Present illness Narrative EARLY VISIT Jhon Patel is a 21 year old here for 2 week visit. C/O feeling tired and had temperature 3 days ago of 101.6. Increased pelvic pressure with voiding- thinks she may have UTI. Has noticed an increased vaginal odor. Delivery Summary: Delivery information: Delivery date 12/23/2021 Delivery type Delivering clinician [place]: Name Sb Gender M ROS: General: Positive for fever 3 days ago. Hypertension Screening: Headache? No. Visual Changes? No Epigastric Pain? No Increased Swelling? No Taking any BP medications at home? No If applicable, monitoring BP at home? (If Yes, include results) NA Mood: normal Depression: denies symptoms of depression. OB Depression and Anxiety Screening- This Encounter (since 01/03/2022) Over the past 2 weeks have you felt down, depressed, or hopeless? Negative Over the past two weeks, have you felt little interest or pleasure in doing things? Negative Feeling nervous, anxious or on edge 0-Not at all Not being able to stop or control worrying 0-Not al all Anxiety Pre-Screening Total (If >/= 3 additional questions will be reviewed) 0 Feeding: Bottle feeding problems: None Bladder: No dysuria, gross hematuria, urinary frequency, urinary urgency, or incontinence Bowel symptoms: Negative for abdominal discomfort, blood in stools or black stools and change in bowel habits Abdomen: N/A Bleeding: spotting Bottom and Perineum: Sore Sleep: no sleep concerns, does not feel rested [place] since delivery: Not resumed Emotional support: Yes Exercise: N/A Other issues: None - SEE HPI PHYSICAL EXAMINATION: BP 110/60 Wt 166 lb (75.3 kg) LMP 03/23/2021 (Approximate) BMI 33.53 kg/m General: pleasant,female in no apparent distress, A&O x 3. Skin warm and intact. Breast: Deferred Abdomen: soft, non-tender and no masses /Incision: N/A Pelvic: external genitalia normal, normal Bartholin's glands, urethra, Belvoir's glands, no vulvar lesions, no cervical lesions, good vaginal support, physiologic discharge present, normal appearing perineal body and perianal region, small amount of dark, brown old blood in vaginal vault. No active bleeding noted. Bimanual: uterus normal size, shape and consistency, no adnexal masses, non-tender and no cervical motion tenderness ASSESSMENT/PLAN: 1. Vaginal odor - ICD9: 625.8, ICD10: N89.8 (primary diagnosis) - BACT/ROMELIA VAG GRAM STAIN 2. Pelvic pressure - UA - positive for moderate blood and small leukocytes- culture sent 3. 2 weeks follow-up - ICD9: V24.2, ICD10: Z39.2 - Bottle feeding - Afebrile for the past 3 days Follow up: Return to Clinic for 6 week visit and as needed Savanna Velazquez APRN.CNM documented in this encounter [facility] 01-04-2022 Miscellaneous Notes Opened in error. Patient scheduled for an appointment for today documented in this encounter [facility] 12-29-2021 Miscellaneous Notes Patient notified. No redness. Declines needing an appointment today. Has an early PP visit on Tuesday. Will call with worsening symptoms. Tami Galvin RN Tylenol alternating w/ motrin. Cold compresses. If red area needs appointment. otherwise rest and let us know if it gets worse. We also can see her this afternoon w/ AG if she prefers. Thanks. Malcolm Forrest MD Pt calling and stated that she has been running a low grade temp of 100.4 for the past 3 days. Pt is not but is stating that she is very painful around the nipple area, she is having some body aches and chills. Tylenol is providing minimal relief. Pt has no other sxs or complaints. Please advise. Raquel العراقي LPN documented in this encounter [facility] 12-24-2021 History of Present illness Narrative Patient delivered via by Dr. Forrest on 12/23/21 at [facility]. See OB history. Shobha Gastelum RN documented in this encounter [facility] 12-20-2021 Miscellaneous Notes Patient calling regarding contractions and leaking fluids. Conferenced to licensing registration examiner Answering Service [phone]] to speak with provider lead generation marketing manager for Dr. Forrest at phone number (.-.-.). Roxann Tolbert LPN documented in this encounter [facility] 12-18-2021 Miscellaneous Notes noted and agree Malcolm Forrest MD Patient is 38w4d. States Dr Forrest stripped membranes at appt yesterday. She had some bloody mucous that she passed today. Baby active. Has irregular contractions. Patient reassured. Discussed mucous plug. States she never noted lost mucous plug with other pregnancies. Discussed bleeding precautions, FM counts and when to go to hospital with contractions and PRN problems. FYI documented in this encounter [facility] 12-17-2021 Miscellaneous Notes Addended by: MALCOLM FORREST on: 12/17/2021 11:58 AM Modules accepted: Orders Addended by: CHARLEY JOAQUIN RN on: 12/17/2021 11:44 AM Modules accepted: Orders RR- VB No. LOF No. CTXSyes, worse since last night. Still irreg. Movement: present. Other c/o: uncomfortable Medication list reviewed. Physical Exam See Flow Sheet Abd: soft, nontender, gravid Ext: edema: Trace A/P 38w3d Estimated Date of Delivery: 12/28/21 kick counts labor precuations induction at 39 weeks if not in labor by then for favorable cervix and maternal discomfort. Malcolm Forrest M.D. documented in this encounter [facility] 12-17-2021 Estrellita Howard Ma - 12/17/2021 10:54 AM EDT SEQUENTIAL SCREENINGS The [facility] offers sequential screenings for women who are interested in screenings for chromosomal abnormalities and certain defects during a . The sequential screen combines ultrasound and blood tests to determine the risk of chromosomal abnormalities, including Down's Syndrome (Trisomy 21) and Trisomy 18, as well as open neural tube defects including spina bifida. Ultrasound examination is performed between 11 weeks and 13 weeks gestational age. Blood tests are drawn after the ultrasound and again later in the between 15 and 21 weeks gestational age. Please let your physician know if you are interested in this testing. It will require an appointment with our chief technician. This is not an ultrasound performed by a physician in our office during a routine visit. SIGNS AND SYMPTOMS OF LABOR 1. Contractions every 10 minutes or more often 2. Clear, pink, or brownish fluid (water) leaking from vagina 3. Feeling that baby is pushing down, pressure 4. Low, dull backache 5. Cramps that feel like a period 6. Cramps with or without diarrhea If you notice any of the above symptoms, contact our office at [phone] and ask to speak with a nurse. After hours, you can call doctors registry at [phone] OR call [facility] at [phone] and ask to have the doctor lead generation marketing manager paged. If you consider this an emergency, dial 1-3-4 or go to your nearest emergency department. NEED HELP? Are you dealing with a violent or abusive relationship? Are you a victim of rape or sexual assult? Call [facility] ([place]) 24 hour Crisis Hotline: 824.675.4675 or 018-579-7386. MANUAL Your Guide to a Healthy manual is now on-line. Visit [email or web address] to download your free copy documented in this encounter [facility] 12-09-2021 Miscellaneous Notes RR- No VB/LOF. Good FM. Irreg ctxs. mild edema. Some pelvic pressure. F/u in 1 week or prn. Would like to consider induction of labor at 39+ weeks for maternal discomfort. Schedule this next week. Malcolm Forrest MD documented in this encounter [facility] 12-09-2021 Estrellita Crenshaw LPN - 12/09/2021 10:42 AM EDT SEQUENTIAL SCREENINGS The [facility] offers sequential screenings for women who are interested in screenings for chromosomal abnormalities and certain defects during a . The sequential screen combines ultrasound and blood tests to determine the risk of chromosomal abnormalities, including Down's Syndrome (Trisomy 21) and Trisomy 18, as well as open neural tube defects including spina bifida. Ultrasound examination is performed between 11 weeks and 13 weeks gestational age. Blood tests are drawn after the ultrasound and again later in the between 15 and 21 weeks gestational age. Please let your physician know if you are interested in this testing. It will require an appointment with our chief technician. This is not an ultrasound performed by a physician in our office during a routine visit. SIGNS AND SYMPTOMS OF LABOR 1. Contractions every 10 minutes or more often 2. Clear, pink, or brownish fluid (water) leaking from vagina 3. Feeling that baby is pushing down, pressure 4. Low, dull backache 5. Cramps that feel like a period 6. Cramps with or without diarrhea If you notice any of the above symptoms, contact our office at [phone] and ask to speak with a nurse. After hours, you can call doctors registry at [phone] OR call [facility] at [phone] and ask to have the doctor lead generation marketing manager paged. If you consider this an emergency, dial 9-1-0 or go to your nearest emergency department. NEED HELP? Are you dealing with a violent or abusive relationship? Are you a victim of rape or sexual assult? Call [facility] ([place]) 24 hour Crisis Hotline: 555.436.5612 or 017-186-0127. MANUAL Your Guide to a Healthy manual is now on-line. Visit [email or web address] to download your free copy documented in this encounter [facility] 12-03-2021 Miscellaneous Notes RR- No VB/LOF. No regular ctxs. Good FM. Brief US confirms vtx. F/u in 1 week or prn. GBS done today. Malcolm Forrest MD documented in this encounter [facility] 12-03-2021 Instructions Radha Howard Ma - 12/03/2021 11:07 AM EDT SEQUENTIAL SCREENINGS The [facility] offers sequential screenings for women who are interested in screenings for chromosomal abnormalities and certain defects during a . The sequential screen combines ultrasound and blood tests to determine the risk of chromosomal abnormalities, including Down's Syndrome (Trisomy 21) and Trisomy 18, as well as open neural tube defects including spina bifida. Ultrasound examination is performed between 11 weeks and 13 weeks gestational age. Blood tests are drawn after the ultrasound and again later in the between 15 and 21 weeks gestational age. Please let your physician know if you are interested in this testing. It will require an appointment with our chief technician. This is not an ultrasound performed by a physician in our office during a routine visit. SIGNS AND SYMPTOMS OF LABOR 1. Contractions every 10 minutes or more often 2. Clear, pink, or brownish fluid (water) leaking from vagina 3. Feeling that baby is pushing down, pressure 4. Low, dull backache 5. Cramps that feel like a period 6. Cramps with or without diarrhea If you notice any of the above symptoms, contact our office at [phone] and ask to speak with a nurse. After hours, you can call doctors registry at [phone] OR call [facility] at [phone] and ask to have the doctor lead generation marketing manager paged. If you consider this an emergency, dial 9-1-1 or go to your nearest emergency department. NEED HELP? Are you dealing with a violent or abusive relationship? Are you a victim of rape or sexual assult? Call [facility] ([facility] 24 hour Crisis Hotline: 637.752.6787 or 117-463-5005. MANUAL Your Guide to a Healthy manual is now on-line. Visit [email or web address] to download your free copy documented in this encounter [facility] 11-10-2021 Miscellaneous Notes RR- VB No. LOF No. CTXS No. Movement: present. Other c/o: still w/ lightheadedness at times and fatigue Medication list reviewed. Physical Exam See Flow Sheet Abd: soft, nontender, gravid Ext: edema: Trace A/P 33w1d Estimated Date of Delivery: 12/28/21 anxious about a c/s if that would become necessary antepartum anemia- on fe, recheck today push fluids kick counts f/u in 2 weeks or prn Malcolm Forrest M.D. documented in this encounter [facility] 11-10-2021 Instructions Radha Howard Ar - 11/10/2021 10:54 AM EDT SEQUENTIAL SCREENINGS The [facility] offers sequential screenings for women who are interested in screenings for chromosomal abnormalities and certain defects during a . The sequential screen combines ultrasound and blood tests to determine the risk of chromosomal abnormalities, including Down's Syndrome (Trisomy 21) and Trisomy 18, as well as open neural tube defects including spina bifida. Ultrasound examination is performed between 11 weeks and 13 weeks gestational age. Blood tests are drawn after the ultrasound and again later in the between 15 and 21 weeks gestational age. Please let your physician know if you are interested in this testing. It will require an appointment with our chief technician. This is not an ultrasound performed by a physician in our office during a routine visit. SIGNS AND SYMPTOMS OF LABOR 1. Contractions every 10 minutes or more often 2. Clear, pink, or brownish fluid (water) leaking from vagina 3. Feeling that baby is pushing down, pressure 4. Low, dull backache 5. Cramps that feel like a period 6. Cramps with or without diarrhea If you notice any of the above symptoms, contact our office at [phone] and ask to speak with a nurse. After hours, you can call doctors registry at [phone] OR call [facility] at [phone] and ask to have the doctor lead generation marketing manager paged. If you consider this an emergency, dial 9-1-1 or go to your nearest emergency department. NEED HELP? Are you dealing with a violent or abusive relationship? Are you a victim of rape or sexual assult? Call [facility] ([place]) 24 hour Crisis Hotline: 260.693.7207 or 239-740-1622. MANUAL Your Guide to a Healthy manual is now on-line. Visit [email or web address] to download your free copy documented in this encounter [facility] documented as of this encounter (statuses as of 01/13/2023) [facility]02-23-2022 History of Past illness Narrative* Problem Noted Date Resolved Date Antepartum anemia complicating in thir d trimester 10/07/2021 12/28/2022 Abnormal glucose complicating 12/25/19 20 12/28/2022 Overview: October 14, 2021 Normal 3 hr, one elevated result. October 07, 2021 3hr ordered. 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 recheck antibody screen before RHIG in 3rd trimester. Malcolm Forrest MD Vaginal bleeding in , first trimester 0 08/16/2019 04/22/2020 Overview: 08/16/2019Patient seen in E.R. for bleeding 07/27/2019. Denies any bleeding since then. Received Rhogam. Ultrasound was done that revealed an IUP@ 6w4d. TKRN UTI (urinary tract infection) in , ante 08/16/2019 04/22/2020 Overview: 08/16/2019Patient was treated for UTI at E.R. visit. Will be finishing antibiotic in 2 days. TKRN Scabies 01/01/2014 09/17/2019 Abdominal pain 01/15/2013 09/17/2019 Weight loss 01/15/2013 09/17/2019 Nausea 01/15/2013 09/17/2019 Bloody stools 12/07/2012 09/17/2019 documented as of this encounter (statuses as of 01/18/2023) [facility]02-23-2022 History of Past illness Narrative* Problem Noted Date Resolved Date Antepartum anemia complicating in thir d trimester 10/07/2021 12/28/2022 Abnormal glucose complicating 12/25/19 20 12/28/2022 Overview: October 14, 2021 Normal 3 hr, one elevated result. October 07, 2021 3hr ordered. 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 recheck antibody screen before RHIG in 3rd trimester. Malcolm Forrest MD Vaginal bleeding in , first trimester 0 08/16/2019 04/22/2020 Overview: 08/16/2019Patient seen in E.R. for bleeding 07/27/2019. Denies any bleeding since then. Received Rhogam. Ultrasound was done that revealed an IUP@ 6w4d. TKRN UTI (urinary tract infection) in , ante 08/16/2019 04/22/2020 Overview: 08/16/2019Patient was treated for UTI at E.R. visit. Will be finishing antibiotic in 2 days. TKRN Scabies 01/01/2014 09/17/2019 Abdominal pain 01/15/2013 09/17/2019 Weight loss 01/15/2013 09/17/2019 Nausea 01/15/2013 09/17/2019 Bloody stools 12/07/2012 09/17/2019 documented as of this encounter (statuses as of 01/18/2023) [facility]12-02-2021 History of Past illness Narrative* Problem Noted Date Diagnosed Date Resolved Date COVID-19 vaccine series declined 07/16/2021 07/19/2023 Abnormal glucose complicating 12/25/2019 12/28/2022 Overview: October 14, 2021 Normal 3 hr, one elevated result. October 07, 2021 3hr ordered. 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 recheck antibody screen before RHIG in 3rd trimester. Malcolm Forrest MD Vaginal bleeding in pregnanc y, first trimester 08/16/2019 04/22/2020 Overview: 08/16/2019Patient seen in E.R. for bleeding 07/27/2019. Denies any bleeding since then. Received Rhogam. Ultrasound was done that revealed an IUP@ 6w4d. TKRN UTI (urinary tract infection ) in , antepartum 08/16/2019 04/22/2020 Overview: 08/16/2019Patient was treated for UTI at E.R. visit. Will be finishing antibiotic in 2 days. TKRN Scabies 01/01/2014 09/17/2019 Abdominal pain 01/15/2013 09/17/2019 Weight loss 01/15/2013 09/17/2019 Nausea 01/15/2013 09/17/2019 Bloody stools 12/07/2012 09/17/2019 documented as of this encounter (statuses as of 07/19/2023) [facility]05-12-2020 History of Past illness Narrative* Problem Noted Date Resolved Date Abnormal glucose complicating 12/25/19 20 12/28/2022 Overview: October 14, 2021 Normal 3 hr, one elevated result. October 07, 2021 3hr ordered. 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 recheck antibody screen before RHIG in 3rd trimester. Malcolm Forrest MD Vaginal bleeding in , first trimester 0 08/16/2019 04/22/2020 Overview: 08/16/2019Patient seen in E.R. for bleeding 07/27/2019. Denies any bleeding since then. Received Rhogam. Ultrasound was done that revealed an IUP@ 6w4d. TKRN UTI (urinary tract infection) in , ante 08/16/2019 04/22/2020 Overview: 08/16/2019Patient was treated for UTI at E.R. visit. Will be finishing antibiotic in 2 days. TKRN Scabies 01/01/2014 09/17/2019 Abdominal pain 01/15/2013 09/17/2019 Weight loss 01/15/2013 09/17/2019 Nausea 01/15/2013 09/17/2019 Bloody stools 12/07/2012 09/17/2019 documented as of this encounter (statuses as of 02/08/2023) [facility]05-12-2020 History of Past illness Narrative* Problem Noted Date Resolved Date Abnormal glucose complicating 12/25/1912/28/2022 Overview: October 14, 2021 Normal 3 hr, one elevated result. October 07, 2021 3hr ordered. 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 recheck antibody screen before RHIG in 3rd trimester. Malcolm Forrest MD Vaginal bleeding in , first trimester 0 08/16/2019 04/22/2020 Overview: 08/16/2019Patient seen in E.R. for bleeding 07/27/2019. Denies any bleeding since then. Received Rhogam. Ultrasound was done that revealed an IUP@ 6w4d. TKRN UTI (urinary tract infection) in , ante 08/16/2019 04/22/2020 Overview: 08/16/2019Patient was treated for UTI at E.R. visit. Will be finishing antibiotic in 2 days. TKRN Scabies 01/01/2014 09/17/2019 Abdominal pain 01/15/2013 09/17/2019 Weight loss 01/15/2013 09/17/2019 Nausea 01/15/2013 09/17/2019 Bloody stools 12/07/2012 09/17/2019 documented as of this encounter (statuses as of 02/09/2023) [facility]05-12-2020 History of Past illness Narrative* Problem Noted Date Resolved Date Abnormal glucose complicating 12/25/19 20 12/28/2022 Overview: October 14, 2021 Normal 3 hr, one elevated result. October 07, 2021 3hr ordered. 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 recheck antibody screen before RHIG in 3rd trimester. Malcolm Forrest MD Vaginal bleeding in , first trimester 0 08/16/2019 04/22/2020 Overview: 08/16/2019Patient seen in E.R. for bleeding 07/27/2019. Denies any bleeding since then. Received Rhogam. Ultrasound was done that revealed an IUP@ 6w4d. TKRN UTI (urinary tract infection) in , ante 08/16/2019 04/22/2020 Overview: 08/16/2019Patient was treated for UTI at E.R. visit. Will be finishing antibiotic in 2 days. TKRN Scabies 01/01/2014 09/17/2019 Abdominal pain 01/15/2013 09/17/2019 Weight loss 01/15/2013 09/17/2019 Nausea 01/15/2013 09/17/2019 Bloody stools 12/07/2012 09/17/2019 documented as of this encounter (statuses as of 02/18/2023) [facility]05-12-2020 History of Past illness Narrative* Problem Noted Date Resolved Date Abnormal glucose complicating 12/25/19 20 12/28/2022 Overview: October 14, 2021 Normal 3 hr, one elevated result. October 07, 2021 3hr ordered. 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 recheck antibody screen before RHIG in 3rd trimester. Malcolm Forrest MD Vaginal bleeding in , first trimester 0 08/16/2019 04/22/2020 Overview: 08/16/2019Patient seen in E.R. for bleeding 07/27/2019. Denies any bleeding since then. Received Rhogam. Ultrasound was done that revealed an IUP@ 6w4d. TKRN UTI (urinary tract infection) in , ante 08/16/2019 04/22/2020 Overview: 08/16/2019Patient was treated for UTI at E.R. visit. Will be finishing antibiotic in 2 days. TKRN Scabies 01/01/2014 09/17/2019 Abdominal pain 01/15/2013 09/17/2019 Weight loss 01/15/2013 09/17/2019 Nausea 01/15/2013 09/17/2019 Bloody stools 12/07/2012 09/17/2019 documented as of this encounter (statuses as of 02/18/2023) [facility]05-12-2020 History of Past illness Narrative* Problem Noted Date Diagnosed Date Resolved Date Abnormal glucose complicating 12/25/2019 12/28/2022 Overview: October 14, 2021 Normal 3 hr, one elevated result. October 07, 2021 3hr ordered. 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 recheck antibody screen before RHIG in 3rd trimester. Malcolm Forrest MD Vaginal bleeding in pregnanc y, first trimester 08/16/2019 04/22/2020 Overview: 08/16/2019Patient seen in E.R. for bleeding 07/27/2019. Denies any bleeding since then. Received Rhogam. Ultrasound was done that revealed an IUP@ 6w4d. TKRN UTI (urinary tract infection ) in , antepartum 08/16/2019 04/22/2020 Overview: 08/16/2019Patient was treated for UTI at E.R. visit. Will be finishing antibiotic in 2 days. TKRN Scabies 01/01/2014 09/17/2019 Abdominal pain 01/15/2013 09/17/2019 Weight loss 01/15/2013 09/17/2019 Nausea 01/15/2013 09/17/2019 Bloody stools 12/07/2012 09/17/2019 documented as of this encounter (statuses as of 04/13/2023) [facility]05-12-2020 History of Past illness Narrative* Problem Noted Date Diagnosed Date Resolved Date Abnormal glucose complicating 12/25/2019 12/28/2022 Overview: October 14, 2021 Normal 3 hr, one elevated result. October 07, 2021 3hr ordered. 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 recheck antibody screen before RHIG in 3rd trimester. Malcolm Forrest MD Vaginal bleeding in pregnanc y, first trimester 08/16/2019 04/22/2020 Overview: 08/16/2019Patient seen in E.R. for bleeding 07/27/2019. Denies any bleeding since then. Received Rhogam. Ultrasound was done that revealed an IUP@ 6w4d. TKRN UTI (urinary tract infection ) in , antepartum 08/16/2019 04/22/2020 Overview: 08/16/2019Patient was treated for UTI at E.R. visit. Will be finishing antibiotic in 2 days. TKRN Scabies 01/01/2014 09/17/2019 Abdominal pain 01/15/2013 09/17/2019 Weight loss 01/15/2013 09/17/2019 Nausea 01/15/2013 09/17/2019 Bloody stools 12/07/2012 09/17/2019 documented as of this encounter (statuses as of 04/13/2023) [facility]05-12-2020 History of Past illness Narrative* Problem Noted Date Diagnosed Date Resolved Date Abnormal glucose complicating 12/25/2019 12/28/2022 Overview: October 14, 2021 Normal 3 hr, one elevated result. October 07, 2021 3hr ordered. 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 recheck antibody screen before RHIG in 3rd trimester. Malcolm Forrest MD Vaginal bleeding in pregnanc y, first trimester 08/16/2019 04/22/2020 Overview: 08/16/2019Patient seen in E.R. for bleeding 07/27/2019. Denies any bleeding since then. Received Rhogam. Ultrasound was done that revealed an IUP@ 6w4d. TKRN UTI (urinary tract infection ) in , antepartum 08/16/2019 04/22/2020 Overview: 08/16/2019Patient was treated for UTI at E.R. visit. Will be finishing antibiotic in 2 days. TKRN Scabies 01/01/2014 09/17/2019 Abdominal pain 01/15/2013 09/17/2019 Weight loss 01/15/2013 09/17/2019 Nausea 01/15/2013 09/17/2019 Bloody stools 12/07/2012 09/17/2019 documented as of this encounter (statuses as of 04/19/2023) [facility]05-12-2020 History of Past illness Narrative* Problem Noted Date Diagnosed Date Resolved Date Abnormal glucose complicating 12/25/2019 12/28/2022 Overview: October 14, 2021 Normal 3 hr, one elevated result. October 07, 2021 3hr ordered. 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 recheck antibody screen before RHIG in 3rd trimester. Malcolm Forrest MD Vaginal bleeding in pregnanc y, first trimester 08/16/2019 04/22/2020 Overview: 08/16/2019Patient seen in E.R. for bleeding 07/27/2019. Denies any bleeding since then. Received Rhogam. Ultrasound was done that revealed an IUP@ 6w4d. TKRN UTI (urinary tract infection ) in , antepartum 08/16/2019 04/22/2020 Overview: 08/16/2019Patient was treated for UTI at E.R. visit. Will be finishing antibiotic in 2 days. TKRN Scabies 01/01/2014 09/17/2019 Abdominal pain 01/15/2013 09/17/2019 Weight loss 01/15/2013 09/17/2019 Nausea 01/15/2013 09/17/2019 Bloody stools 12/07/2012 09/17/2019 documented as of this encounter (statuses as of 05/10/2023) [facility]05-12-2020 History of Past illness Narrative* Problem Noted Date Diagnosed Date Resolved Date Abnormal glucose complicating 12/25/2019 12/28/2022 Overview: October 14, 2021 Normal 3 hr, one elevated result. October 07, 2021 3hr ordered. 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 recheck antibody screen before RHIG in 3rd trimester. Malcolm Forrest MD Vaginal bleeding in pregnanc y, first trimester 08/16/2019 04/22/2020 Overview: 08/16/2019Patient seen in E.R. for bleeding 07/27/2019. Denies any bleeding since then. Received Rhogam. Ultrasound was done that revealed an IUP@ 6w4d. TKRN UTI (urinary tract infection ) in , antepartum 08/16/2019 04/22/2020 Overview: 08/16/2019Patient was treated for UTI at E.R. visit. Will be finishing antibiotic in 2 days. TKRN Scabies 01/01/2014 09/17/2019 Abdominal pain 01/15/2013 09/17/2019 Weight loss 01/15/2013 09/17/2019 Nausea 01/15/2013 09/17/2019 Bloody stools 12/07/2012 09/17/2019 documented as of this encounter (statuses as of 06/09/2023) [facility]05-12-2020 History of Past illness Narrative* Problem Noted Date Diagnosed Date Resolved Date Abnormal glucose complicating 12/25/2019 12/28/2022 Overview: October 14, 2021 Normal 3 hr, one elevated result. October 07, 2021 3hr ordered. 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 recheck antibody screen before RHIG in 3rd trimester. Malcolm Forrest MD Vaginal bleeding in pregnanc y, first trimester 08/16/2019 04/22/2020 Overview: 08/16/2019Patient seen in E.R. for bleeding 07/27/2019. Denies any bleeding since then. Received Rhogam. Ultrasound was done that revealed an IUP@ 6w4d. TKRN UTI (urinary tract infection ) in , antepartum 08/16/2019 04/22/2020 Overview: 08/16/2019Patient was treated for UTI at E.R. visit. Will be finishing antibiotic in 2 days. TKRN Scabies 01/01/2014 09/17/2019 Abdominal pain 01/15/2013 09/17/2019 Weight loss 01/15/2013 09/17/2019 Nausea 01/15/2013 09/17/2019 Bloody stools 12/07/2012 09/17/2019 documented as of this encounter (statuses as of 06/09/2023) [facility]05-12-2020 History of Past illness Narrative* Problem Noted Date Diagnosed Date Resolved Date Abnormal glucose complicating 12/25/2019 12/28/2022 Overview: October 14, 2021 Normal 3 hr, one elevated result. October 07, 2021 3hr ordered. 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 recheck antibody screen before RHIG in 3rd trimester. Malcolm Forrest MD Vaginal bleeding in pregnanc y, first trimester 08/16/2019 04/22/2020 Overview: 08/16/2019Patient seen in E.R. for bleeding 07/27/2019. Denies any bleeding since then. Received Rhogam. Ultrasound was done that revealed an IUP@ 6w4d. TKRN UTI (urinary tract infection ) in , antepartum 08/16/2019 04/22/2020 Overview: 08/16/2019Patient was treated for UTI at E.R. visit. Will be finishing antibiotic in 2 days. TKRN Scabies 01/01/2014 09/17/2019 Abdominal pain 01/15/2013 09/17/2019 Weight loss 01/15/2013 09/17/2019 Nausea 01/15/2013 09/17/2019 Bloody stools 12/07/2012 09/17/2019 documented as of this encounter (statuses as of 06/21/2023) [facility]05-12-2020 History of Past illness Narrative* Problem Noted Date Diagnosed Date Resolved Date Abnormal glucose complicating 12/25/2019 12/28/2022 Overview: October 14, 2021 Normal 3 hr, one elevated result. October 07, 2021 3hr ordered. 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 recheck antibody screen before RHIG in 3rd trimester. Malcolm Forrest MD Vaginal bleeding in pregnanc y, first trimester 08/16/2019 04/22/2020 Overview: 08/16/2019Patient seen in E.R. for bleeding 07/27/2019. Denies any bleeding since then. Received Rhogam. Ultrasound was done that revealed an IUP@ 6w4d. TKRN UTI (urinary tract infection ) in , antepartum 08/16/2019 04/22/2020 Overview: 08/16/2019Patient was treated for UTI at E.R. visit. Will be finishing antibiotic in 2 days. TKRN Scabies 01/01/2014 09/17/2019 Abdominal pain 01/15/2013 09/17/2019 Weight loss 01/15/2013 09/17/2019 Nausea 01/15/2013 09/17/2019 Bloody stools 12/07/2012 09/17/2019 documented as of this encounter (statuses as of 06/30/2023) [facility]05-12-2020 History of Past illness Narrative* Problem Noted Date Diagnosed Date Resolved Date Abnormal glucose complicating 12/25/2019 12/28/2022 Overview: October 14, 2021 Normal 3 hr, one elevated result. October 07, 2021 3hr ordered. 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 recheck antibody screen before RHIG in 3rd trimester. Malcolm Forrest MD Vaginal bleeding in pregnanc y, first trimester 08/16/2019 04/22/2020 Overview: 08/16/2019Patient seen in E.R. for bleeding 07/27/2019. Denies any bleeding since then. Received Rhogam. Ultrasound was done that revealed an IUP@ 6w4d. TKRN UTI (urinary tract infection ) in , antepartum 08/16/2019 04/22/2020 Overview: 08/16/2019Patient was treated for UTI at E.R. visit. Will be finishing antibiotic in 2 days. 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 recheck antibody screen before RHIG in 3rd trimester. Malcolm Forrest MD Vaginal bleeding in , first trimester 0 08/16/2019 04/22/2020 Overview: 08/16/2019Patient seen in E.R. for bleeding 07/27/2019. Denies any bleeding since then. Received Rhogam. Ultrasound was done that revealed an IUP@ 6w4d. TKRN UTI (urinary tract infection) in , ante 08/16/2019 04/22/2020 Overview: 08/16/2019Patient was treated for UTI at E.R. visit. Will be finishing antibiotic in 2 days. TKRN Patient request for diagnostic testing 0 10/07/2021 Overview: 05/14/2021 Patient desires nuchal ultrasound. 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 recheck antibody screen before RHIG in 3rd trimester. Malcolm Forrest MD Vaginal bleeding in , first trimester 0 08/16/2019 04/22/2020 Overview: 08/16/2019Patient seen in E.R. for bleeding 07/27/2019. Denies any bleeding since then. Received Rhogam. Ultrasound was done that revealed an IUP@ 6w4d. TKRN UTI (urinary tract infection) in , ante 08/16/2019 04/22/2020 Overview: 08/16/2019Patient was treated for UTI at E.R. visit. Will be finishing antibiotic in 2 days. TKRN Patient request for diagnostic testing 0 10/07/2021 Overview: 05/14/2021 Patient desires nuchal ultrasound. 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 recheck antibody screen before RHIG in 3rd trimester. Malcolm Forrest MD Vaginal bleeding in , first trimester 0 08/16/2019 04/22/2020 Overview: 08/16/2019Patient seen in E.R. for bleeding 07/27/2019. Denies any bleeding since then. Received Rhogam. Ultrasound was done that revealed an IUP@ 6w4d. TKRN UTI (urinary tract infection) in , ante 08/16/2019 04/22/2020 Overview: 08/16/2019Patient was treated for UTI at E.R. visit. Will be finishing antibiotic in 2 days. TKRN Patient request for diagnostic testing 0 10/07/2021 Overview: 05/14/2021 Patient desires nuchal ultrasound. 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 recheck antibody screen before RHIG in 3rd trimester. Malcolm Forrest MD Vaginal bleeding in , first trimester 0 08/16/2019 04/22/2020 Overview: 08/16/2019Patient seen in E.R. for bleeding 07/27/2019. Denies any bleeding since then. Received Rhogam. Ultrasound was done that revealed an IUP@ 6w4d. TKRN UTI (urinary tract infection) in , ante 08/16/2019 04/22/2020 Overview: 08/16/2019Patient was treated for UTI at E.R. visit. Will be finishing antibiotic in 2 days. TKRN Patient request for diagnostic testing 0 10/07/2021 Overview: 05/14/2021 Patient desires nuchal ultrasound. 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 recheck antibody screen before RHIG in 3rd trimester. Malcolm Forrest MD Vaginal bleeding in , first trimester 0 08/16/2019 04/22/2020 Overview: 08/16/2019Patient seen in E.R. for bleeding 07/27/2019. Denies any bleeding since then. Received Rhogam. Ultrasound was done that revealed an IUP@ 6w4d. TKRN UTI (urinary tract infection) in , ante 08/16/2019 04/22/2020 Overview: 08/16/2019Patient was treated for UTI at E.R. visit. Will be finishing antibiotic in 2 days. TKRN Patient request for diagnostic testing 0 10/07/2021 Overview: 05/14/2021 Patient desires nuchal ultrasound. 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 recheck antibody screen before RHIG in 3rd trimester. Malcolm Forrest MD Vaginal bleeding in , first trimester 0 08/16/2019 04/22/2020 Overview: 08/16/2019Patient seen in E.R. for bleeding 07/27/2019. Denies any bleeding since then. Received Rhogam. Ultrasound was done that revealed an IUP@ 6w4d. TKRN UTI (urinary tract infection) in , ante 08/16/2019 04/22/2020 Overview: 08/16/2019Patient was treated for UTI at E.R. visit. Will be finishing antibiotic in 2 days. TKRN Patient request for diagnostic testing 0 10/07/2021 Overview: 05/14/2021 Patient desires nuchal ultrasound. 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 recheck antibody screen before RHIG in 3rd trimester. Malcolm Forrest MD Vaginal bleeding in , first trimester 0 08/16/2019 04/22/2020 Overview: 08/16/2019Patient seen in E.R. for bleeding 07/27/2019. Denies any bleeding since then. Received Rhogam. Ultrasound was done that revealed an IUP@ 6w4d. TKRN UTI (urinary tract infection) in , ante 08/16/2019 04/22/2020 Overview: 08/16/2019Patient was treated for UTI at E.R. visit. Will be finishing antibiotic in 2 days. TKRN Patient request for diagnostic testing 0 10/07/2021 Overview: 05/14/2021 Patient desires nuchal ultrasound. 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 recheck antibody screen before RHIG in 3rd trimester. Malcolm Forrest MD Vaginal bleeding in , first trimester 0 08/16/2019 04/22/2020 Overview: 08/16/2019Patient seen in E.R. for bleeding 07/27/2019. Denies any bleeding since then. Received Rhogam. Ultrasound was done that revealed an IUP@ 6w4d. TKRN UTI (urinary tract infection) in , ante 08/16/2019 04/22/2020 Overview: 08/16/2019Patient was treated for UTI at E.R. visit. Will be finishing antibiotic in 2 days. TKRN Patient request for diagnostic testing 0 10/07/2021 Overview: 05/14/2021 Patient desires nuchal ultrasound. 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 recheck antibody screen before RHIG in 3rd trimester. Malcolm Forrest MD Vaginal bleeding in , first trimester 0 08/16/2019 04/22/2020 Overview: 08/16/2019Patient seen in E.R. for bleeding 07/27/2019. Denies any bleeding since then. Received Rhogam. Ultrasound was done that revealed an IUP@ 6w4d. TKRN UTI (urinary tract infection) in , ante 08/16/2019 04/22/2020 Overview: 08/16/2019Patient was treated for UTI at E.R. visit. Will be finishing antibiotic in 2 days. TKRN Patient request for diagnostic testing 0 10/07/2021 Overview: 05/14/2021 Patient desires nuchal ultrasound. 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 recheck antibody screen before RHIG in 3rd trimester. Malcolm Forrest MD Vaginal bleeding in , first trimester 0 08/16/2019 04/22/2020 Overview: 08/16/2019Patient seen in E.R. for bleeding 07/27/2019. Denies any bleeding since then. Received Rhogam. Ultrasound was done that revealed an IUP@ 6w4d. TKRN UTI (urinary tract infection) in , ante 08/16/2019 04/22/2020 Overview: 08/16/2019Patient was treated for UTI at E.R. visit. Will be finishing antibiotic in 2 days. TKRN Patient request for diagnostic testing 0 10/07/2021 Overview: 05/14/2021 Patient desires nuchal ultrasound. 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 recheck antibody screen before RHIG in 3rd trimester. Malcolm Forrest MD Vaginal bleeding in , first trimester 0 08/16/2019 04/22/2020 Overview: 08/16/2019Patient seen in E.R. for bleeding 07/27/2019. Denies any bleeding since then. Received Rhogam. Ultrasound was done that revealed an IUP@ 6w4d. TKRN UTI (urinary tract infection) in , ante 08/16/2019 04/22/2020 Overview: 08/16/2019Patient was treated for UTI at E.R. visit. Will be finishing antibiotic in 2 days. TKRN Patient request for diagnostic testing 0 10/07/2021 Overview: 05/14/2021 Patient desires nuchal ultrasound. 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 recheck antibody screen before RHIG in 3rd trimester. Malcolm Forrest MD Vaginal bleeding in , first trimester 0 08/16/2019 04/22/2020 Overview: 08/16/2019Patient seen in E.R. for bleeding 07/27/2019. Denies any bleeding since then. Received Rhogam. Ultrasound was done that revealed an IUP@ 6w4d. TKRN UTI (urinary tract infection) in , ante 08/16/2019 04/22/2020 Overview: 08/16/2019Patient was treated for UTI at E.R. visit. Will be finishing antibiotic in 2 days. TKRN Patient request for diagnostic testing 0 10/07/2021 Overview: 05/14/2021 Patient desires nuchal ultrasound. 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 recheck antibody screen before RHIG in 3rd trimester. Malcolm Forrest MD Vaginal bleeding in , first trimester 0 08/16/2019 04/22/2020 Overview: 08/16/2019Patient seen in E.R. for bleeding 07/27/2019. Denies any bleeding since then. Received Rhogam. Ultrasound was done that revealed an IUP@ 6w4d. TKRN UTI (urinary tract infection) in , ante 08/16/2019 04/22/2020 Overview: 08/16/2019Patient was treated for UTI at E.R. visit. Will be finishing antibiotic in 2 days. TKRN Patient request for diagnostic testing 0 10/07/2021 Overview: 05/14/2021 Patient desires nuchal ultrasound. 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 recheck antibody screen before RHIG in 3rd trimester. Malcolm Forrest MD Vaginal bleeding in , first trimester 0 08/16/2019 04/22/2020 Overview: 08/16/2019Patient seen in E.R. for bleeding 07/27/2019. Denies any bleeding since then. Received Rhogam. Ultrasound was done that revealed an IUP@ 6w4d. TKRN UTI (urinary tract infection) in , ante 08/16/2019 04/22/2020 Overview: 08/16/2019Patient was treated for UTI at E.R. visit. Will be finishing antibiotic in 2 days. TKRN Patient request for diagnostic testing 0 10/07/2021 Overview: 05/14/2021 Patient desires nuchal ultrasound. 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 recheck antibody screen before RHIG in 3rd trimester. Malcolm Forrest MD Vaginal bleeding in , first trimester 0 08/16/2019 04/22/2020 Overview: 08/16/2019Patient seen in E.R. for bleeding 07/27/2019. Denies any bleeding since then. Received Rhogam. Ultrasound was done that revealed an IUP@ 6w4d. TKRN UTI (urinary tract infection) in , ante 08/16/2019 04/22/2020 Overview: 08/16/2019Patient was treated for UTI at E.R. visit. Will be finishing antibiotic in 2 days. TKRN Patient request for diagnostic testing 0 10/07/2021 Overview: 05/14/2021 Patient desires nuchal ultrasound. 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 recheck antibody screen before RHIG in 3rd trimester. Malcolm Forrest MD Vaginal bleeding in , first trimester 0 08/16/2019 04/22/2020 Overview: 08/16/2019Patient seen in E.R. for bleeding 07/27/2019. Denies any bleeding since then. Received Rhogam. Ultrasound was done that revealed an IUP@ 6w4d. TKRN UTI (urinary tract infection) in , ante 08/16/2019 04/22/2020 Overview: 08/16/2019Patient was treated for UTI at E.R. visit. Will be finishing antibiotic in 2 days. TKRN Patient request for diagnostic testing 0 10/07/2021 Overview: 05/14/2021 Patient desires nuchal ultrasound. 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 recheck antibody screen before RHIG in 3rd trimester. Malcolm Forrest MD Vaginal bleeding in , first trimester 0 08/16/2019 04/22/2020 Overview: 08/16/2019Patient seen in E.R. for bleeding 07/27/2019. Denies any bleeding since then. Received Rhogam. Ultrasound was done that revealed an IUP@ 6w4d. TKRN UTI (urinary tract infection) in , ante 08/16/2019 04/22/2020 Overview: 08/16/2019Patient was treated for UTI at E.R. visit. Will be finishing antibiotic in 2 days. TKRN Patient request for diagnostic testing 0 10/07/2021 Overview: 05/14/2021 Patient desires nuchal ultrasound. 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 recheck antibody screen before RHIG in 3rd trimester. Malcolm Forrest MD Vaginal bleeding in , first trimester 0 08/16/2019 04/22/2020 Overview: 08/16/2019Patient seen in E.R. for bleeding 07/27/2019. Denies any bleeding since then. Received Rhogam. Ultrasound was done that revealed an IUP@ 6w4d. TKRN UTI (urinary tract infection) in , ante 08/16/2019 04/22/2020 Overview: 08/16/2019Patient was treated for UTI at E.R. visit. Will be finishing antibiotic in 2 days. TKRN Patient request for diagnostic testing 0 10/07/2021 Overview: 05/14/2021 Patient desires nuchal ultrasound. 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 recheck antibody screen before RHIG in 3rd trimester. Malcolm Forrest MD Vaginal bleeding in , first trimester 0 08/16/2019 04/22/2020 Overview: 08/16/2019Patient seen in E.R. for bleeding 07/27/2019. Denies any bleeding since then. Received Rhogam. Ultrasound was done that revealed an IUP@ 6w4d. TKRN UTI (urinary tract infection) in , ante 08/16/2019 04/22/2020 Overview: 08/16/2019Patient was treated for UTI at E.R. visit. Will be finishing antibiotic in 2 days. TKRN Patient request for diagnostic testing 0 10/07/2021 Overview: 05/14/2021 Patient desires nuchal ultrasound. 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 recheck antibody screen before RHIG in 3rd trimester. Malcolm Forrest MD Vaginal bleeding in , first trimester 0 08/16/2019 04/22/2020 Overview: 08/16/2019Patient seen in E.R. for bleeding 07/27/2019. Denies any bleeding since then. Received Rhogam. Ultrasound was done that revealed an IUP@ 6w4d. TKRN UTI (urinary tract infection) in , ante 08/16/2019 04/22/2020 Overview: 08/16/2019Patient was treated for UTI at E.R. visit. Will be finishing antibiotic in 2 days. TKRN Patient request for diagnostic testing 0 10/07/2021 Overview: 05/14/2021 Patient desires nuchal ultrasound. 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 recheck antibody screen before RHIG in 3rd trimester. Malcolm Forrest MD Vaginal bleeding in , first trimester 0 08/16/2019 04/22/2020 Overview: 08/16/2019Patient seen in E.R. for bleeding 07/27/2019. Denies any bleeding since then. Received Rhogam. Ultrasound was done that revealed an IUP@ 6w4d. TKRN UTI (urinary tract infection) in , ante 08/16/2019 04/22/2020 Overview: 08/16/2019Patient was treated for UTI at E.R. visit. Will be finishing antibiotic in 2 days. TKRN Patient request for diagnostic testing 0 10/07/2021 Overview: 05/14/2021 Patient desires nuchal ultrasound. 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 recheck antibody screen before RHIG in 3rd trimester. Malcolm Forrest MD Vaginal bleeding in , first trimester 0 08/16/2019 04/22/2020 Overview: 08/16/2019Patient seen in E.R. for bleeding 07/27/2019. Denies any bleeding since then. Received Rhogam. Ultrasound was done that revealed an IUP@ 6w4d. TKRN UTI (urinary tract infection) in , ante 08/16/2019 04/22/2020 Overview: 08/16/2019Patient was treated for UTI at E.R. visit. Will be finishing antibiotic in 2 days. TKRN Patient request for diagnostic testing 0 10/07/2021 Overview: 05/14/2021 Patient desires nuchal ultrasound. Considering genetic carrier screening testing.TKRN Scabies 01/01/2014 09/17/2019 Abdominal pain 01/15/2013 09/17/2019 Weight loss 01/15/2013 09/17/2019 Nausea 01/15/2013 09/17/2019 Bloody stools 12/07/2012 09/17/2019 documented as of this encounter (statuses as of 12/24/2022) [facility] Diagnosis 33 weeks gestation of - Primary state, incidental Encounter for supervision of other normal in third trimester Antepartum anemia complicating [facility] third [facility] 36 [facility] of - Primary state, incidental Antepartum anemia complicating in third trimester Encounter for supervision of other normal in third trimester [facility] Diagnosis 37 weeks gestation of - Primary state, incidental [facility] Diagnosis 38 weeks gestation of - Primary state, incidental Encounter for supervision of other normal in third trimester Encounter for screening for COVID-19 [facility] Diagnosis Vaginal odor- Primary Unspecified symptom associated with female genital organs 2 weeks follow-up Pelvic pressure in female Other specified symptom associated with female genital organs [facility] Diagnosis BV (bacterial vaginosis)- Primary Vaginitis and vulvovaginitis, unspecified [facility] Diagnosis Vaginal odor- Primary Unspecified symptom associated with female genital organs [facility]* Diagnosis Diarrhea, unspecified type- Primary Epigastric pain Abdominal pain, epigastric Bloody stool Blood in stool External hemorrhoid External hemorrhoids without mention of complication [facility]* Diagnosis Epigastric pain Abdominal pain, epigastric [facility]* Diagnosis Diarrhea, unspecified type- Primary Epigastric pain Abdominal pain, epigastric documented in this encounter [facility] note* Diagnosis Diarrhea, unspecified type- Primary Epigastric pain Abdominal pain, epigastric [facility]* Diagnosis Epigastric pain Abdominal pain, epigastric [facility]* Diagnosis Encounter for gynecological examination with abnormal finding- Primary Routine gynecological examination Constipation, unspecified constipation type Hemorrhoids, unspecified hemorrhoid type Screen for STD (sexually transmitted disease) Screening examination for venereal disease Screening for cervical cancer Screening for malignant neoplasm of the cervix Papanicolaou smear of cervix with atypical squamous cells of undetermined significance (ASC-US) Cervical high risk human papillomavirus (HPV) DNA test positive documented in this encounter [facility] note* Diagnosis Acute cough- Primary Sore throat Acute pharyngitis URI, acute Acute upper respiratory infections of unspecified site [facility]* Diagnosis Weight loss, unintentional- Primary Loss of weight Pain, dental Unspecified disorder of the teeth and supporting structures Missed period Irregular menstrual cycle [facility]* Diagnosis Short interval between pregnancies affecting , antepartum- Primary H/O macrosomia in infant in prior , currently with other poor obstetric history Rh negative state in antepartum 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, antepartum condition Patient request for diagnostic testing Other specified examination Request for sterilization [facility]* Diagnosis with uncertain dates in first trimester- Primary Short interval between pregnancies affecting , antepartum H/O macrosomia in in prior , currently with other poor obstetric history Rh negative state in antepartum 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, antepartum condition Patient request for diagnostic testing Other specified examination Encounter for screening of mother Unspecified screening Supervision of other high risk pregnancies, first trimester 8 weeks gestation of state, incidental [facility] Diagnosis with uncertain dates in first trimester- Primary [facility] Diagnosis 11 weeks gestation of - Primary state, incidental Spotting in Spotting complicating , unspecified as to episode of care or not applicable [facility] Diagnosis 12 weeks gestation of - Primary state, incidental Supervision of other high risk pregnancies, first trimester [facility] Diagnosis Nuchal translucency of fetus on ultrasound- Primary Abnormal findings on screening Encounter for screening of mother Unspecified screening Supervision of other high risk pregnancies, first trimester 12 weeks gestation of state, incidental [facility]* Diagnosis 20 weeks gestation of - Primary state, incidental Supervision of high risk in second trimester Unspecified high-risk Antepartum anemia complicating in second trimester [facility] Diagnosis Encounter for anatomic survey- Primary Short interval between pregnancies affecting , antepartum Encounter for screening of mother Unspecified screening Supervision of other high risk pregnancies, first trimester 20 weeks gestation of state, incidental [facility]* Diagnosis Short interval between pregnancies affecting , antepartum- Primary H/O macrosomia in infant in prior , currently with other poor obstetric history Request for sterilization Rh negative state in antepartum 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, antepartum condition Patient request for diagnostic testing Other specified examination Antepartum anemia complicating in first trimester [facility] Diagnosis Short interval between pregnancies affecting , antepartum- Primary H/O macrosomia in infant in prior , currently with other poor obstetric history Rh negative state in antepartum 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, antepartum condition Supervision of high risk in second trimester Unspecified high-risk 24 weeks gestation of state, incidental Anemia during in second trimester [facility]* Diagnosis Short interval between pregnancies affecting , antepartum- Primary H/O macrosomia in in prior , currently with other poor obstetric history Rh negative state in antepartum 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, antepartum condition 28 weeks gestation of state, incidental Supervision of high risk in third trimester Unspecified high-risk Encounter for narcotic contract discussion Encounter for counseling regarding contraception documented in this encounter [facility] note* Diagnosis Short interval between pregnancies affecting , antepartum- Primary 30 weeks gestation of state, incidental documented in this encounter [facility] note* Diagnosis Supervision of high risk in third trimester- Primary Unspecified high-risk Short interval between pregnancies affecting , antepartum Anemia complicating , third trimester documented in this encounter [facility] note* Diagnosis Short interval between pregnancies affecting , antepartum- Primary Supervision of high risk in third trimester Unspecified high-risk Anemia complicating , third trimester H/O macrosomia in infant in prior , currently with other poor obstetric history 34 weeks gestation of state, incidental documented in this encounter [facility] for referral (narrative)* Diagnostic Procedure Only (Urgent) - Authorized Specialty Diagnoses / Procedures Referred By Reynaldo tariq Referred To Contact US IMAGING Diagnoses Epigastric pain Procedures US ABD RT UPPER QUADRANT US ABDOMINAL REAL TIME W/IMAGE LIMITED Savannah Brito PA-C [address] [place] [address] Us Imaging Referral ID Status Reason Start Date Expiration Date Visits Requested Visits Authorized [id number] Authorized Auto-Generat ed Referral 02/11/2022 03/13/2023 1 1 [facility] for referral (narrative)* Diagnostic Procedure Only (Urgent) - Closed Specialty Diagnoses / Procedures Referred By Reynaldo tariq Referred To Contact US IMAGING Diagnoses Epigastric pain Procedures US ABD RT UPPER QUADRANT US ABDOMINAL REAL TIME W/IMAGE LIMITED Savannah Brito PA-C [address] [place] [address] Us Imaging Referral ID Status Reason Start Date Expiration Date V isits Requested Visits Authorized [id number] Closed Auto-Generate d Referral 02/12/2022 03/14/2023 1 1 [facility] for referral (narrative)* Diagnostic Procedure Only (Routine) - Pending Review Specialty Diagnoses / Procedures Referred By Contac t Referred To Contact [facility] Diagnoses Short interval between pregnancies affecting , antepartum Encounter for screening of mother Supervision of other high risk pregnancies, first trimester Procedures OBSTETRIC ULTRASOUND WHI US PREG UTERUS AFTER 1ST TRIMEST GESTATION Malcolm Forrest MD [address] [place] [address] [place] [address] Referral ID Status Reason Start Date Expiration Date Visits Requested Visits Authorized [id number] Pending Review Auto-Generat ed Referral 01/18/2023 01/18/2024 1 1 * Diagnostic Procedure Only (Routine) - Authorized Specialty Diagnoses / Procedures Referred By Contac t Referred To Contact [facility] Diagnoses Encounter for screening of mother Supervision of other high risk pregnancies, first trimester Procedures NUCHAL TRANSLUCENCY WHI US NUCHAL TRANSLUCENCY 1ST GESTATION Malcolm Forrest MD [address] [place] [address] [address] [place] [address] Referral ID Status Reason Start Date Expiration Date Visits Requested Visits Authorized [id number] Authorized Auto-Generat ed Referral 01/18/2023 01/18/2024 1 1 [facility] for referral (narrative)* Diagnostic Procedure Only (Routine) - Pending Review Specialty Diagnoses / Procedures Referred By Contac t Referred To Contact [facility] Diagnoses 11 weeks gestation of Procedures NUCHAL TRANSLUCENCY WHI US NUCHAL TRANSLUCENCY 1ST GESTATION Savanna Velazquez APRN.CNM [address] [place] [address] [facility] [address] [place] [address] Referral ID Status Reason Start Date Expiration Date Visits Requested Visits Authorized [id number] Pending Review Auto-Generat ed Referral 02/09/2023 02/09/2024 1 1 [facility] for visit Narrative* Diagnostic Procedure Only (Urgent) - Authorized Specialty Diagnoses / Procedures Referred By Contac t Referred To Contact [facility] IMAGING Diagnoses Epigastric pain Procedures US ABD RT UPPER QUADRANT US ABDOMINAL REAL TIME W/IMAGE LIMITED Savannah Brito PA-C [address] [place] [address] Us Imaging Referral ID Status Reason Start Date Expiration Date Visits Requested Visits Authorized [id number] Authorized Auto-Generat ed Referral 02/11/2022 03/13/2023 1 1 [facility] for visit Narrative* Diagnostic Procedure Only (Urgent) - Closed Specialty Diagnoses / Procedures Referred By Contac t Referred To Contact US IMAGING Diagnoses Epigastric pain Procedures US ABD RT UPPER QUADRANT US ABDOMINAL REAL TIME W/IMAGE LIMITED Savannah Brito PA-C [address] [place] [address] Us Imaging Referral ID Status Reason Start Date Expiration Date V isits Requested Visits Authorized [id number] Closed Auto-Generate d Referral 02/12/2022 03/14/2023 1 1 [facility] Summary Purpose Family History No Family History Records FoundNo Family History Records FoundNo Family History Records Found Advance Directives No Advanced Directives Records FoundNo Advanced Directives Records FoundNo Advanced Directives Records Found Health Concerns Infection Onset Date Last Indicated Resolved Time COVID-19 Rule-Out 12/18/2021 12/18/2021 Infection Onset Date Last Indicated Resolved Time COVID-19 Rule-Out 12/18/2021 12/20/2021 Problem Noted Date [facility] - [place] 01/2023 [place] - [place] 01/18/2023 Problem Noted Date [facility] - [facility] 01/2023 [place] - [place] 01/18/2023 Problem Noted Date [facility] - [place] 01/2023 Education - [place] 01/18/2023 Problem Noted Date [facility] - [facility] 01/2023 Education - [place] 01/18/2023 Problem Noted Date [facility] - [facility] 01/2023 Education - [place] 01/18/2023 Problem Noted Date [facility] - [facility] 01/2023 Education - [place] 01/18/2023 Problem Noted Date Diagnosed Date [facility] - [facility] 01/18/2023 Education - [place] 01/18/2023 Problem Noted Date Diagnosed Date [facility] - [facility] 01/18/2023 Education - [place] 01/18/2023 Problem Noted Date Diagnosed Date [facility] - [facility] 01/18/2023 Education - [place] 01/18/2023 Problem Noted Date Diagnosed Date [facility] - [facility] 01/18/2023 Education - [place] 01/18/2023 Problem Noted Date Diagnosed Date [facility] - [facility] 01/18/2023 Education - [place] 01/18/2023 Problem Noted Date Diagnosed Date [facility] - [facility] 01/18/2023 Education - [place] 01/18/2023 Problem Noted Date Diagnosed Date [facility] - 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 [address] [place] [address] Referral ID Status Reason Start Date Expiration Date Visits Requested Visits Authorized [id number] Authorized PCP Requested Referral 02/12/2022 02/12/2023 1 1 Additional Source Comments INFORMATION SOURCE (unrecogn ized section and content) DATE CREATED AUTHOR AUTHOR'S ORGANIZ ATION 02/12/2022 [facility] DATE CREATED AUTHOR AUTHOR'S CLAUDETTE MEJIA 08/25/2023 [facility] Source Comments (unrecognize d section and content) In the event this informatio n is protected by the Federal Confidentiality of Alcohol and Drug Abuse Patient Records regulations: The Federal rules restrict any use of the information to criminally investigate or prosecute any alcohol or drug abuse patient.[facility] the event this information is protected by the Federal Confidentiality of Alcohol and Drug Abuse Patient Records regulations: The Federal rules restrict any use of the information to criminally investigate or prosecute any alcohol or drug abuse patient.[facility] the event this information is protected by the Federal Confidentiality of Alcohol and Drug Abuse Patient Records regulations: The Federal rules restrict any use of the information to criminally investigate or prosecute any alcohol or drug abuse patient.[facility] the event this information is protected by the Federal Confidentiality of Alcohol and Drug Abuse Patient Records regulations: The Federal rules restrict any use of the information to criminally investigate or prosecute any alcohol or drug abuse patient.[facility] the event this information is protected by the Federal Confidentiality of Alcohol and Drug Abuse Patient Records regulations: The Federal rules restrict any use of the information to criminally investigate or prosecute any alcohol or drug abuse patient.[facility] the event this information is protected by the Federal Confidentiality of Alcohol and Drug Abuse Patient Records regulations: The Federal rules restrict any use of the information to criminally investigate or prosecute any alcohol or drug abuse patient.[facility] the event this information is protected by the Federal Confidentiality of Alcohol and Drug Abuse Patient Records regulations: The Federal rules restrict any use of the information to criminally investigate or prosecute any alcohol or drug abuse patient.[facility] the event this information is protected by the Federal Confidentiality of Alcohol and Drug Abuse Patient Records regulations: The Federal rules restrict any use of the information to criminally investigate or prosecute any alcohol or drug abuse patient.[facility] the event this information is protected by the Federal Confidentiality of Alcohol and Drug Abuse Patient Records regulations: The Federal rules restrict any use of the information to criminally investigate or prosecute any alcohol or drug abuse patient.[facility] the event this information is protected by the Federal Confidentiality of Alcohol and Drug Abuse Patient Records regulations: The Federal rules restrict any use of the information to criminally investigate or prosecute any alcohol or drug abuse patient.[facility] the event this information is protected by the Federal Confidentiality of Alcohol and Drug Abuse Patient Records regulations: The Federal rules restrict any use of the information to criminally investigate or prosecute any alcohol or drug abuse patient.[facility] the event this information is protected by the Federal Confidentiality of Alcohol and Drug Abuse Patient Records regulations: The Federal rules restrict any use of the information to criminally investigate or prosecute any alcohol or drug abuse patient.[facility] the event this information is protected by the Federal Confidentiality of Alcohol and Drug Abuse Patient Records regulations: The Federal rules restrict any use of the information to criminally investigate or prosecute any alcohol or drug abuse patient.[facility] the event this information is protected by the Federal Confidentiality of Alcohol and Drug Abuse Patient Records regulations: The Federal rules restrict any use of the information to criminally investigate or prosecute any alcohol or drug abuse patient.[facility] the event this information is protected by the Federal Confidentiality of Alcohol and Drug Abuse Patient Records regulations: The Federal rules restrict any use of the information to criminally investigate or prosecute any alcohol or drug abuse patient.[facility] the event this information is protected by the Federal Confidentiality of Alcohol and Drug Abuse Patient Records regulations: The Federal rules restrict any use of the information to criminally investigate or prosecute any alcohol or drug abuse patient.[facility] the event this information is protected by the Federal Confidentiality of Alcohol and Drug Abuse Patient Records regulations: The Federal rules restrict any use of the information to criminally investigate or prosecute any alcohol or drug abuse patient.[facility] the event this information is protected by the Federal Confidentiality of Alcohol and Drug Abuse Patient Records regulations: The Federal rules restrict any use of the information to criminally investigate or prosecute any alcohol or drug abuse patient.[facility] the event this information is protected by the Federal Confidentiality of Alcohol and Drug Abuse Patient Records regulations: The Federal rules restrict any use of the information to criminally investigate or prosecute any alcohol or drug abuse patient.[facility] the event this information is protected by the Federal Confidentiality of Alcohol and Drug Abuse Patient Records regulations: The Federal rules restrict any use of the information to criminally investigate or prosecute any alcohol or drug abuse patient.[facility] the event this information is protected by the Federal Confidentiality of Alcohol and Drug Abuse Patient Records regulations: The Federal rules restrict any use of the information to criminally investigate or prosecute any alcohol or drug abuse patient.[facility] the event this information is protected by the Federal Confidentiality of Alcohol and Drug Abuse Patient Records regulations: The Federal rules restrict any use of the information to criminally investigate or prosecute any alcohol or drug abuse patient.[facility] the event this information is protected by the Federal Confidentiality of Alcohol and Drug Abuse Patient Records regulations: The Federal rules restrict any use of the information to criminally investigate or prosecute any alcohol or drug abuse patient.[facility] the event this information is protected by the Federal Confidentiality of Alcohol and Drug Abuse Patient Records regulations: The Federal rules restrict any use of the information to criminally investigate or prosecute any alcohol or drug abuse patient.[facility] the event this information is protected by the Federal Confidentiality of Alcohol and Drug Abuse Patient Records regulations: The Federal rules restrict any use of the information to criminally investigate or prosecute any alcohol or drug abuse patient.[facility] the event this information is protected by the Federal Confidentiality of Alcohol and Drug Abuse Patient Records regulations: The Federal rules restrict any use of the information to criminally investigate or prosecute any alcohol or drug abuse patient.[facility] the event this information is protected by the Federal Confidentiality of Alcohol and Drug Abuse Patient Records regulations: The Federal rules restrict any use of the information to criminally investigate or prosecute any alcohol or drug abuse patient.[facility] the event this information is protected by the Federal Confidentiality of Alcohol and Drug Abuse Patient Records regulations: The Federal rules restrict any use of the information to criminally investigate or prosecute any alcohol or drug abuse patient.[facility] the event this information is protected by the Federal Confidentiality of Alcohol and Drug Abuse Patient Records regulations: The Federal rules restrict any use of the information to criminally investigate or prosecute any alcohol or drug abuse patient.[facility] the event this information is protected by the Federal Confidentiality of Alcohol and Drug Abuse Patient Records regulations: The Federal rules restrict any use of the information to criminally investigate or prosecute any alcohol or drug abuse patient.[facility] the event this information is protected by the Federal Confidentiality of Alcohol and Drug Abuse Patient Records regulations: The Federal rules restrict any use of the information to criminally investigate or prosecute any alcohol or drug abuse patient.[facility]In the event this information is protected by the Federal Confidentiality of Alcohol and Drug Abuse Patient Records regulations: The Federal rules restrict any use of the information to criminally investigate or prosecute any alcohol or drug abuse patient.[facility] the event this information is protected by the Federal Confidentiality of Alcohol and Drug Abuse Patient Records regulations: The Federal rules restrict any use of the information to criminally investigate or prosecute any alcohol or drug abuse patient.[facility] NorthIn the event this information is protected by the Federal Confidentiality of Alcohol and Drug Abuse Patient Records regulations: The Federal rules restrict any use of the information to criminally investigate or prosecute any alcohol or drug abuse patient.[facility] NorthIn the event this information is protected by the Federal Confidentiality of Alcohol and Drug Abuse Patient Records regulations: The Federal rules restrict any use of the information to criminally investigate or prosecute any alcohol or drug abuse patient.[facility] NorthIn the event this information is protected by the Federal Confidentiality of Alcohol and Drug Abuse Patient Records regulations: The Federal rules restrict any use of the information to criminally investigate or prosecute any alcohol or drug abuse patient.[facility] NorthIn the event this information is protected by the Federal Confidentiality of Alcohol and Drug Abuse Patient Records regulations: The Federal rules restrict any use of the information to criminally investigate or prosecute any alcohol or drug abuse patient.[facility] NorthIn the event this information is protected by the Federal Confidentiality of Alcohol and Drug Abuse Patient Records regulations: The Federal rules restrict any use of the information to criminally investigate or prosecute any alcohol or drug abuse patient.[facility] NorthIn the event this information is protected by the Federal Confidentiality of Alcohol and Drug Abuse Patient Records regulations: The Federal rules restrict any use of the information to criminally investigate or prosecute any alcohol or drug abuse patient.[facility] NorthIn the event this information is protected by the Federal Confidentiality of Alcohol and Drug Abuse Patient Records regulations: The Federal rules restrict any use of the information to criminally investigate or prosecute any alcohol or drug abuse patient.[facility] Reason for Visit (unrecogniz ed section and content) Specialty Diagnoses / Procedures Referred By Reynaldo tariq Referred To Contact [facility] Diagnoses Encounter for screening of mother Supervision of other high risk pregnancies, first trimester Procedures NUCHAL TRANSLUCENCY WHI US NUCHAL TRANSLUCENCY 1ST GESTATION Malcolm Forrest MD [address] [place] [address] [facility] [place] [address] [place] [address] Referral ID Status Reason Start Date Expiration Date V isits Requested Visits Authorized [id number] Closed Auto-Generate d Referral 01/18/2023 01/18/2024 1 1 Reason Onset Date Comments Care 11/10/2021 Reason Onset Date Comments Care 12/03/2021 Reason Onset Date Comments Care 12/09/2021 Reason Onset Date Comments Care 12/17/2021 Reason Comments Follow Up Reason Onset Date Comments fluid 12/20/2021 Contractions 12/20/2021 Reason Comments Ob Delivery Note Reason Comments Patient Question Reason Comments Care Reason Comments Medication Problem Reason Comments Vaginal Problem Reason Comments Pain upper abdominal pain constant and dull x 2 weeks bloody stools and diahrrea x 1 month Reason Comments Results us Reason Comments Results Reason Comments Cough Cough, sore throat, congestion and fever off and on x 1 month Reason Comments Jaw pain Reason Comments Results Labs Reason Comments Care Reason Comments Initial OB Visit Reason Comments OB Bleeding Reason Onset Date Comments Care 02/09/2023 Reason Onset Date Comments Care 02/17/2023 Reason Onset Date Comments Care 04/13/2023 Specialty Diagnoses / Procedures Referred By Contac t Referred To Contact [facility] Diagnoses Short interval between pregnancies affecting , antepartum Encounter for screening of mother Supervision of other high risk pregnancies, first trimester Procedures OBSTETRIC ULTRASOUND WHI US PREG UTERUS AFTER 1ST TRIMEST GESTATION Malcolm Forrest MD [address] 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 This clinical summary was aggregated from multiple sources. Caution should be exercised in using it in the provision of clinical care. This summary normalizes information from multiple sources, and as a consequence, information in this document may materially change the coding, format and clinical context of patient data. In addition, data may be omitted in some cases. CLINICAL DECISIONS SHOULD BE BASED ON THE PRIMARY CLINICAL RECORDS. [facility]. provides no warranty or guarantee of the accuracy or completeness of information in this document.
[2023-08-25] MEDS: Lactated Ringers 1,000 ML 50 ML IV (07:55)
[2023-08-25] MEDS: Oxytocin 15 Units/NS 250ml 15 UNITS/250 ML IV.SOLN 2 UNITS IV (08:13)
[2023-08-25 08:46] LABS: Absolute Lymphocyte Count 1.68 X10^3/uL (0.83-4.51); Absolute Neutrophil Count 5.9 X10^3/uL (2.0-7.7); Basophil# 0.02 X10^3/uL; Basophil% 0.2 % (0-1); Eosinophil# 0.08 X10^3/uL; Eosinophils% 0.9 % (0-5); Hematocrit 27.4 % (37-47); Hemoglobin 8.4 g/dL (12.0-15.0); Lymphocyte # 1.68 X10^3/ul (0.83-4.51); Lymphocyte % 19.8 % (19-41); Mean Corp Hgb Conc 30.7 g/dL (32-36); Mean Corpuscular Hgb 25.8 pg (27.0-32.0); Mean Platelet Vol. 10.2 fl (6.2-12.0); Monocyte# 0.71 X10^3/uL; Monocyte% 8.4 % (0-10); NRBC Flagged by Analyzer 0 % (0-5); Neutrophil # 5.92 X10^3/uL (2.7-7.7); Platelet Count 268 K/mm3 (150-450); RBC Distribution Width CV 14.3 % (11.6-14.6); RBC Distribution Width SD 43.8 fl (35.1-43.9); Red Blood Count 3.26 M/mm3 (4.2-5.4); White Blood Count 8.5 K/mm3 (4.4-11.0)
[2023-08-25 11:06] LABS: Syphilis Antibodies Non-reactive
[2023-08-25] MEDS: LACTATED RINGERS 500 ML 999 ML IV ×2 (12:19→17:08)
[2023-08-25] MEDS: fentaNYL-bupivacaine (epidural) 100 ML BAG EPIDURAL (14:21)
--- NOTE | 2023-08-25 17:58 | EX.PCM.OBRPT ---
Assessment & Plan (1) Single live : Maternal Data Information Final MICA: 08/29/23 Gestational age: 39 3/7 Vaginal Delivery Maternal Presentation Maternal Presentation: Elective Induction Type of Induction: Pitocin and Amniotomy Operative Information Date of Procedure: 08/25/23 Surgery / Procedure Performed: Spontaneous Vaginal Delivery Type of Anesthesia: Epidural Drain: Faye to straight drain Estimated Blood Loss: 300 Time of Delivery: 17:35 Findings Description of Procedure: A vigorous female infant was delivered OLIVIER over an intact perineum. The remainder the was delivered with maternal pushing and gentle traction only in 20 seconds with modified Jennifer position. The Pitocin infusion was initiated for active management of the third stage. The cord was clamped and cut after 1 minute. The was attended to by the waiting nursing staff. The placenta was delivered spontaneously and intact. The cervix and vagina were intact. Sponge and needle counts were correct. A vaginal sweep was completed by me. Presentation: OLIVIER Amniotic Membrane Rupture Type: Artificial Amniotic Fluid Description: Clear Placental Delivery Description: Spontaneous Placenta Disposition: [facility] Cord Vessel Description: 3 Vessels Cord Entanglement: None Cord Gases: ABG and VBG A Gender: Female (Echo) (1 minute): 8 (5 minute): 9 Delayed Cord Clamping: Yes Post Vaginal Delivery Medications Given After Delivery: IV Pitocin Episiotomy Description: None Laceration: None Complication Complications: None
[2023-08-25] MEDS: Oxytocin 15 Units/NS 250ml 15 UNITS/250 ML IV.SOLN 83 UNITS IV (18:07)
[2023-08-25] MEDS: SimETHICONE 80 MG Chewable Tablet PO (20:09)
[2023-08-26] VITALS (9 sets, daily range): BP systolic 96–108; BP diastolic 48–59; PULSE 71–103; RESP 16; TEMP 36.4–37.4
[2023-08-26] MEDS: Rho(D) Immune Globulin 300 MCG (1500 Unit) Syringe IV (01:06)
[2023-08-26] MEDS: 0.9% Saline Lock 10 ML Syringe IV (01:09)
[2023-08-26] MEDS: Acetaminophen 500 MG Tablet 1000 MG PO ×2 (04:47→15:53)
--- NOTE | 2023-08-26 08:52 | PCM.PN.OB ---
Subjective Subjective Pain well controlled, average lochia. No n/v. Objective Data Objective Data Vital Signs: Vital Signs Temp Pulse Resp BP Pulse Ox O2 Del Method 99.4 F H 103 H 16 108/53 L 100 Room Air 08/26/23 04:40 08/26/23 04:40 08/26/23 04:40 08/26/23 04:40 08/25/23 15:31 08/26/23 04:40 Oxygen Delivery Method Room Air Weight: 71.94 kg Body Mass Index (BMI) 30.9 Intake & Output: Intake and Output for Last 24 Hours 08/24/23 08/25/23 08/26/23 23:59 23:59 23:59 Intake Total 1926.75 / 1926.75 Output Total 950 / 950 Balance 976.75 / 976.75 Lab / Micro Data 08/25/23 07:55 Labs: Laboratory Results - last 24 hr 08/25/23 07:55: Syphilis Total Ab Non-reactive, Blood Type AB NEGATIVE, Antibody Screen NEGATIVE 08/25/23 23:10: Screen NEGATIVE, Baby's Blood Type A POSITIVE, Baby's ANDRIY NEGATIVE Physical Exam Const alert and no apparent distress Narrative: Fundus firm, below umbilicus. Assessment & Plan (1) (spontaneous vaginal delivery): PLAN: PPD#1, bottlefeeding and doing well. routine care. likely home today.
--- NOTE | 2023-08-26 09:08 | PCM.DC.SUM ---
Providers Date of Admission: 08/25/23 Primary Care Physician: Charity Primary Care Phys Reason For Visit: VAGINAL DELIVERY Diagnosis Discharge Diagnosis (1) (spontaneous vaginal delivery): Status: Acute Code(s): O80 - Encounter for full-term uncomplicated delivery Plan: PPD#1, bottlefeeding and doing well. routine care. likely home today. Hospital Course Operations None Procedures None Summary of Care Provided Minutes Spent on Discharge: 14 Hospital Course: 22-year-old male female admitted at 39+ gestational weeks for induction of labor. She has spontaneous vaginal delivery on 08/25/2023 without complications. She was discharged home on 08/26/2023 at her request with routine instructions and follow-up Weight / BMI Weight Weight: 71.94 kg Body Mass Index (BMI) 30.9 ABG / Lab / Microbiology Data 08/25/23 07:55 Laboratory: Laboratory Results - last 24 hr 08/25/23 07:55: Syphilis Total Ab Non-reactive, Blood Type AB NEGATIVE, Antibody Screen NEGATIVE 08/25/23 23:10: Screen NEGATIVE, Baby's Blood Type A POSITIVE, Baby's ANDRIY NEGATIVE D/C Instructions May resume sexual activity in: 6 weeks Please Follow Up With: Shana Mcgrath MD When: Follow up with our office in 1-2 and 6 weeks or as needed. [phone] Meaningful Use Info Meaningful Use Diagnoses (Choose all that apply): None applicable Discharge Plan Admission Admit Date/Time: 08/25/23 07:20 Primary Reason for Your Visit: Vaginal delivery Attending Provider: Shana Mcgrath Primary Care Provider: Care Physician,Charity Primary Discharge Orders/Prescriptions Referrals / Follow Up: Care Physician,No Primary [Primary Care Provider] - Disposition Disposition (needs filled in before D/C Order can be placed): Home, Self Care
--- NOTE | 2023-09-14 12:05 | HP.PCM.OB_ITS ---
HPI - General General Date of Admission: 08/25/23 Date of Service: 08/25/23 Chief Complaint: induction HPI Narrative JHON CAMACHO, is a 22 F who presents for induction of labor at 39+ weeks. Elective induction of labor. Maternal Data Information Final MICA: 08/29/23 Gestational age: 39 3/7 [facility] Medical History Anxiety Chlamydia infection affecting Endometritis Former smoker Heart murmur HPV (human papilloma virus) infection macrosomia Normal colonoscopy Normal esophagogastroduodenoscopy (EGD) (spontaneous vaginal delivery) Home Medications NK 09/13/23 [History Last Taken Unknown] Allergy/AdvReac Type Severity Reaction Status Date / Time Sulfa (Sulfonamide Allergy Hives Verified 09/13/23 10:52 Antibiotics) Surgical History (Updated 09/13/23 @ 10:56 by Teresita Fletcher) History of endometrial ablation Social History Smoking Status: Former smoker History Elective abortions Hx Para 3 Spontaneous abortions Hx # Term Pregnancies Ectopic pregnancies Hx # Pregnancies Multiple births # of living children ROS Constitutional Constitutional: Denies fatigue, fever(s) or malaise Eyes Eyes: Denies change in vision ENT HEENT: Denies dizziness or headache(s) Cardiovascular Cardiovascular: Denies chest pain, dyspnea or lightheadedness Respiratory/Chest Respiratory/Chest: Denies cough or dyspnea Gastrointestinal Gastrointestinal: Denies change in bowel habits Genitourinary Genitourinary: Denies burning urination or genital lesions Integumentary Integumentary: Denies rash Neurologic Neurologic: Denies confusion, dizziness, headache(s), numbness or weakness Vital Signs Vital Signs Vital Signs: Weight Weight: 71.94 kg Body Mass Index (BMI) 30.9 Physical Exam Const alert and no apparent distress General Appearance: cooperative HEENT normocephalic Resp normal respiratory effort Cardio regular rate GI soft to palpation GI Narrative: gravid, nontender, appropriate for gestational age Extremity no calf tenderness General Extremity: edema Skin no wounds Rashes: No rashes noted Psych activity/motor behavior normal Labs Labs Labs: Blood Type AB NEGATIVE Antibody Screen NEGATIVE Hct 27.4 % (37-47) L Hgb 8.4 g/dL (12.0-15.0) L Obstetrics Ultrasound Syphilis Total Ab Non-reactive VZV IgG Antibody 297 index (Immune >165) Rubella IgG Antibody 201.1 IU/mL Hep Bs Antigen Negative (Negative) Hepatitis C Ab (EIA) 0.1 s/co ratio (0.0-0.9) Glucose 1 Hr 50 gm 142 mg/dL (70-140) H Gest Glucose Tolerance MG/DL Group B Strep DNA Negative (Negative) Rhogam given: Yes Assessment & Plan (1) 39 weeks gestation of : PLAN: Plan 39 Week for elective induction. R/B/A/P reviewed, consent signed. EFW < 4500 gm clinically adn pelvis clinically adequate to expect vaginal delivery.
== END 2023-08-26 18:30 | disposition home or self-care (01) | DRG 807 ==
PROVIDERS: Admitting Provider Obstetrics & Gynecology; Referring Provider Obstetrics & Gynecology; Visit Provider Obstetrics & Gynecology
DX: O80 Encounter for full-term uncomplicated delivery (principal); Z37.0 Single live birth; Z3A.39 39 weeks gestation of pregnancy; Z87.59 Personal history of other complications of pregnancy, childbirth and the puerperium; Z87.891 Personal history of nicotine dependence
CPT/HCPCS: 59025; 59050; 85025; 85461; 86780; 86850; 86900; 86901; 90384; 99221; J7120; A4216; G0378; J2790; J2791

== ENCOUNTER 2023-09-15 10:07 | Day surgery (SDC) | payer MEDICAID, SELFPAY ==
--- NOTE | 2023-09-06 11:20 | PCM.HP.BLA ---
History and Physical Date of Admission: 09/15/23 HPI: The patient is a 22 year old female presenting for pre-operative visit. She is scheduled for laparoscopic bilateral salpingectomy, for sterilization on 09/15/24. Procedure discussed along with risks, benefits and complications. Other alternatives discussed for management. Consent form signed? Yes. ? ? PAST MEDICAL HISTORY PAST MEDICAL HISTORY Diagnosis Date ? Abdominal pain 01/15/2013 ? Abnormal glandular Papanicolaou smear of cervix 2020 ? ASCUS +HPV ? Anemia ? ? Blood in stool ? ? Chlamydia 2017 ? H/O macrosomia in infant in prior , currently 01/13/2023 ? Maternal care for anti-D (Rh) antibodies in first trimester 09/17/2019 ? ? PAST SURGICAL HISTORY PAST SURGICAL HISTORY Procedure Laterality Date ? COLONOSCOPY ? 02/20/13 ? Negative ? EGD ? 02/20/13 ? Negative ? HYSTEROSCOPY BX ENDOMETRIUM&/POLYPC W/WO D&C ? 04/19/2019 ? hysteroscopy D&C, no polyp noted- chronic endometritis and proliferative endometrium ? GENERAL: denies fevers or chills ENDOCRINOLOGY: has not been on steroids Cardiology : denies palpitations or chest pain Respiratory: denies SOB or cough Hematology: denies history of prolonged bleeding or easy bruising or VTE Allergy: Denies history of personal or family history of allergy to anesthesia ? ? CURRENT MEDICATIONS Current Outpatient Medications Medication Sig Dispense Refill ? multivitamin (CLASSIC ) 28 mg iron- 800 mcg tab(s) Take 1 tablet by mouth once daily. 30 tablet 11 ? ferrous sulfate 325 mg (65 mg iron) tablet Take 1 tablet by mouth every other day. 15 tablet 5 ? docusate sodium (COLACE) 100 mg capsule Take 1 capsule by mouth twice daily as needed for constipation. 60 capsule 1 ? No current facility-administered medications for this visit. ? ? ALLERGIES: Sulfa (Sulfonamide Antibiotics) ? PERSONAL HISTORY: SOCIAL HISTORY Social History ? Tobacco Use ? Smoking status: Former ? ? Years: 3 ? ? Types: Cigarettes ? ? Quit date: 06/04/2019 ? ? Years since quittin.2 ? Smokeless tobacco: Never Vaping Use ? Vaping Use: Never used Substance Use Topics ? Alcohol use: No ? Drug use: No ? FAMILY HISTORY: FAMILY HISTORY FAMILY HISTORY Problem Relation Age of Onset ? No Known Problems Mother ? ? Hypertension Father ? ? No Known Problems Sister ? ? No Known Problems Sister ? ? No Known Problems Brother ? ? Stroke Maternal Grandmother ? ? Thyroid Maternal Grandmother ? ? Heart Maternal Grandfather ? ? No Known Problems Paternal Grandmother ? ? No Known Problems Paternal Grandfather ? ? No Known Problems Daughter ? ? No Known Problems Daughter ? ? No Known Problems Son ? ? ? REVIEW OF SYMPTOMS: GENERAL: denies fevers or chills ENDOCRINOLOGY: has not been on steroids Cardiology : denies palpitations or chest pain Respiratory: denies SOB or cough Hematology: denies history of prolonged bleeding or easy bruising or VTE Allergy: Denies history of personal or family history of allergy to anesthesia ? PHYSICAL EXAMINATION: ? VITALS: Blood pressure 114/68, weight 141 lb (64 kg), last menstrual period 11/22/2022, not currently . ? GENERAL: The patient is well nourished, well hydrated in no acute distress. , The patient is oriented to time, place, and person. NECK: Supple. No lynphadenopathy, normal thyroid, no thyromegaly. LUNGS: Clear to auscultation bilaterally. no wheezes, rhonchi or rales HEART: Regular rate and rhythm, Normal heart sounds, and No murmurs or gallops ? IMPRESSION: sterilization request ? PLAN: The risks/benefits/alternatives and personal involved for the planned laparoscopic bilateral salpingectomy were reviewed with the patient. Her questions were answered to her satisfaction and she desires to proceed. Consent was signed. I reviewed with her postop instructions and expectations. ? ? I have reviewed and updated past medical and surgical history, medications and allergies Assessment & Plan Assessment/Plan (1) Sterilization:
[2023-09-15] VITALS (8 sets, daily range): BP systolic 94–118; BP diastolic 52–71; PULSE 62–85; RESP 16; TEMP 36.3–36.9; O2SAT 100; BMI 28.1
[2023-09-15] MEDS: Lactated Ringers 1,000 ML 15 ML IV (10:35)
[2023-09-15] MEDS: Acetaminophen 500 MG Tablet 1000 MG PO (10:37)
[2023-09-15] MEDS: Ketorolac 30 MG/ML Syringe IV (10:38)
[2023-09-15 10:45] LABS: Internal QC Validated? YES +Cl - CLEAR BKGD; Pregnancy, Urine Negative Negative; Record Kit Lot#,Urine Preg HCG0000718086
[2023-09-15 10:47] LABS: Hematocrit 43.4 % (37-47); Hemoglobin 12.9 g/dL (12.0-15.0); Mean Corp Hgb Conc 29.7 g/dL (32-36); Mean Corpuscular Hgb 25.2 pg (27.0-32.0); Mean Corpuscular Volume 84.8 fL (81-99); Mean Platelet Vol. 10.7 fl (6.2-12.0); Platelet Count 231 K/mm3 (150-450); RBC Distribution Width CV 14.4 % (11.6-14.6); RBC Distribution Width SD 44.6 fl (35.1-43.9); Red Blood Count 5.12 M/mm3 (4.2-5.4); White Blood Count 3.9 K/mm3 (4.4-11.0)
--- NOTE | 2023-09-15 11:14 | DCINST_ITS ---
Discharge Instructions Diet Discharge Diet: Light diet - advance as tolerated Activity Discharge Activity: May Drive (in 2-3 days as tolerated) and May Shower (09/16/23) May resume sexual activity in: 1 week Dressing / Incision Call your doctor if your incision/area has: Sudden Increased Bleeding and Foul Smelling Discharge Call your doctor if you observe: Fever of 101 or Higher Cleanse incision/area with: Soap & Water (Your incisions have skin glue and it can get wet. Leave on until it falls off) Follow Up Care Please Follow Up With: Shana Mcgrath MD When: You do not need a postop visit. Call the office or send a [email or web address] message for questions or concerns. Test Results: Test results from this visit will be discussed in further detail at your follow- up appointment, if applicable. Discharge Plan Admission Primary Reason for Your Visit: Tubal sterilization Attending Provider: Shana Mcgrath Primary Care Provider: Shahbaz Huerta Discharge Orders/Prescriptions Prescriptions: New acetaminophen [Acetaminophen Extra Strength] 500 mg tablet 1,000 mg PO Q6H PRN (Reason: fever or pain) 10 Days Qty: 30 0RF ibuprofen [ibuprofen] 600 mg tablet 600 mg PO Q6H PRN (Reason: Pain) 10 Days Qty: 30 1RF Referrals / Follow Up: Care Physician,No Primary [Non-Staff] - Disposition Disposition (needs filled in before D/C Order can be placed): Home, Self Care
--- NOTE | 2023-09-15 11:15 | FALS_PTH ---
PATHOLOGY RESULTS PATIENT: JHON CAMACHO LOC: [facility] [place] U#:[id number] AGE/SX: 22/F ROOM: RE09/15/[address]: Dr. Shana Mcgrath MD : 2000 BED: DIS: 09/15/2023 SPEC #: [id number] RECD: 09/16/23 07:26 STATUS: VISHAL DAMON #: [id number] JOVI: 09/15/23 11:[address]: Shana Mcgrath DEPT: SURGICAL PATHOLOGY RECD BY: Claudia Sierra ENTERED: 09/16/23 07:27 SP TYPE: FALL TUBES OTHR DR: Dr. Shahbaz Huerta MD Tissues: Fallopian tube Procedures: Surgery Specimen Level II HEADER OPERATION: Laparoscopic salpingectomy PRE-OP DIAGNOSIS: Sterilization TISSUE SUBMITTED: Bilateral tubes MICROSCOPIC DIAGNOSIS Right and left fallopian tubes, bilateral salpingectomies: Two complete segments of fallopian tubes with no pathologic change. AM:carole 09/19/2023 MICROSCOPIC DESCRIPTION Slides are reviewed. GROSS DESCRIPTION Received in fixative is one container labeled with the patient's name and designated bilateral fallopian tubes. The specimen consists of bilateral fallopian tubes including fimbrial ends measuring 8.0 cm in length and 0.5 cm in diameter and 6.5 cm in length and 0.5 cm in diameter. The fallopian tubes are not identified as right or left. Sections reveal unremarkable cut surfaces. Market Asset Protection Manager sections are submitted in two cassettes with each cassette containing one fallopian tube. / ARACELI:carole 09/16/2023 TC:4 CPT: 52665 x2
--- NOTE | 2023-09-15 11:15 | PCM.OPRPT ---
Problems Associated Problem List Diagnoses (1) Sterilization: Report of Operation Date of Procedure: 09/15/23 Pre-Operative Diagnosis: sterilization request Post-Operative Diagnosis: same Surgery/Procedure Performed:: Laparoscopic bilateral salpingectomy Surgeon: Shana Mcgrath cocoa butter filter operator: Sushma Sanchez student Type of Anesthesia: General Anesthesiologist: Jose Shah Special Medications: none Specimen's removed: bilateral fallopian tubes Drains: none Estimated Blood Loss (mL): 10 Fluids Replaced: 600 Description of Procedure: The patient was taken to the operating room where she was prepped and draped in the dorsolithotomy position. A weighted speculum was placed in the vagina and the anterior lip of the cervix was grasped with a tenaculum. The Evelin uterine manipulator was placed and the remainder of the instruments were removed from the vagina. Attention was turned to the abdomen. All port sites were infiltrated with 0.5% Marcaine before skin incisions were made. A 5 mmintraincision was made. The anterior abdominal wall was tented up with 2 towel clamps while a 5 mm blade less trocar and sleeve were directly inserted. Intraperitoneal placement was confirmed with the laparoscope. The pneumoperitoneum was created and the underlying abdominal contents were intact. The patient was placed in Trendelenburg. Right and left lower quadrant ports were placed under direct visualization lateral to the inferior epigastric vessels. The bowel was swept away and the above findings were noted. The LigaSure device was used to clamp seal and transect the antimesenteric portions of the right tube to the cornual insertion of the uterus. The tube was amputated from the uterus and the pedicles were all confirmed to be hemostatic. The same procedure was performed on the contralateral side. The specimens were brought out through a 5 mm port. The pedicles were again examined and found to be hemostatic. The lateral ports were removed under direct visualization and no active bleeding was noted. The pneumoperitoneum was released. The skin incisions were closed with Monocryl suture in a subcuticular fashion and skin glue by me. The vaginal instruments were removed and the vaginal sweep was completed by me. I performed the entire procedure with assistance. All sponge and needle counts were correct and the patient was taken to the recovery room in stable condition. Grafts/Implants Used: none Complications none Admit VTE Documentation VTE Present on Admission: No VTE Mechan Device Prophylaxis: SCD's VTE Pharm Prophylaxis ordered?: No Reason prophylaxis not ordered:: Procedure Not Indicated
[2023-09-15] MEDS: Bupivacaine Mpf 0.5% 30 ML VIAL (11:21)
== END 2023-09-15 14:33 | disposition home or self-care (01) ==
LOC: SDC 10:08 → AC 10:09
PROVIDERS: PCP Internal Medicine; Referring Provider Obstetrics & Gynecology; Visit Provider Obstetrics & Gynecology
PROC: (CPT 58661; principal; 2023-09-15 11:00)
DX: Z30.2 Encounter for sterilization (principal); D64.9 Anemia, unspecified; Z87.891 Personal history of nicotine dependence
CPT/HCPCS: 58661; 00840; 81025; 85027; 88302; J7120; C1760; J2405

== ENCOUNTER 2025-05-25 16:33 | Emergency (ER) | payer BC, MEDICAID, SELFPAY ==
[2025-05-25 16:34] VITALS: BP 108/63; PULSE 86; RESP 16; TEMP 36.4; O2SAT 100; BMI 25.0
--- NOTE | 2025-05-25 16:43 | EDS_ITS ---
HPI HPI - Female History of Present Illness Chief Complaint: Pain Pain: Positive for Pelvic Pain Onset: Days (4) Context: Sudden Onset Timing: Intermittent Quality: Positive for Cramping Location: LLQ Worsened by: - (Activity) Relieved by: - (Nothing) Bleeding Issue: Positive for Vaginal bleeding Onset: Days Context: Gradual Onset Timing: Intermittent Current Severity: Spotting Maximum Severity: Spotting Associated Symptoms Associated Symptoms: Negative for Dysuria, Frequency, Urgency or Hematuria Last known menstrual period: 04/20/2025 Control: BTL Narrative Narrative: Patient presents with multiple positive tests over the past few days. Patient states she started having some abdominal pain 4 days ago. Patient states that it began rather suddenly. Patient states it comes and goes. Patient describes it as cramping. Patient states it is worse over the left lower abdomen. Patient states it is worse with any activity. Patient states no thing makes it better. Patient admits to some vaginal spotting. Patient states she has had a tubal ligation in the past. Patient states her last menstrual period was 04/20/2025. Patient denies any urinary complaints. PFSH PFS Medical History Former smoker macrosomia (spontaneous vaginal delivery) Normal esophagogastroduodenoscopy (EGD) Anxiety Heart murmur Normal colonoscopy Endometritis Chlamydia infection affecting HPV (human papilloma virus) infection Home Medications ?Medication ?Instructions ?Recorded ?Last Taken ?Type acetaminophen 500 mg tablet 1,000 mg (2 x 500 mg) PO Q 6H PRN 09/15/23 Unknown Rx (Acetaminophen Extra Strength) fever or pain 10 days # 30 tabs ibuprofen 600 mg tablet 600 mg PO Q6H PRN Pain 10 da ys #30 09/15/23 Unknown Rx TABLETS naproxen 500 mg tablet 500 mg PO BID PRN #20 tabs 1 Unknown Rx Allergy/AdvReac Type Severity Reaction Status Date / Time Sulfa (Sulfonamide Allergy Hives Verified 05/25/25 16:35 Antibiotics) Surgical History History of endometrial ablation Social History Smoking Status: Former smoker ROS ROS ED Constitutional Constitutional ED: Denies chills or fever(s) Eyes Eyes: Denies blurry vision or change in vision ENT ENT ED: Denies rhinorrhea or sore throat Cardiovascular Cardiovascular: Denies chest pain or palpitations Respiratory/Chest Respiratory/Chest: Denies cough or dyspnea Gastrointestinal Gastrointestinal: Reports abdominal pain; Denies nausea or vomiting Genitourinary Genitourinary ED: Denies dysuria or hematuria Musculoskeletal Musculoskeletal: Denies back pain or neck pain Integumentary Denies abscess or rash Neurologic Neurologic: Denies headache(s) or weakness Allergic/Immunologic Allergic/Immunologic ED: Denies mouth swelling or urticaria EXAM Physical Exam Const Vital Signs: 05/25/25 16:34 Temperature 97.5 F L Temperature Source Temporal Pulse Rate 86 Respiratory Rate 16 Blood Pressure 108/63 Blood Pressure Mean 78 Pulse Ox 100 Oxygen Delivery Method Room Air Positive well nourished and well developed Constitutional Narrative: BMI is 25.1. General Appearance ED: well developed and NAD HEENT Reports moist mucous membranes Neck supple and no JVD Resp normal respiratory effort and clear to auscultation bilaterally Cardio regular rate and regular rhythm GI soft to palpation and non-distended Palpation: tender LLQ and suprapubic; Negative for guarding Back/Spine no CVA tenderness Extremity normal to inspection and full ROM General Extremety ED: Negative for edema or tenderness General Extremity: Negative for edema Neuro oriented x3, CN's II-XII intact bilaterally and no sensory deficits noted Sensorium / Orientation: alert Motor Exam: strength 5/5 throughout Psych mental status grossly normal MDM MDM MDM Narrative Medical decision making narrative: Differential diagnosis includes ectopic , ovarian cyst, dehydration, and electrolyte abnormality. CBC will be obtained to assess for leukocytosis and anemia. Basic metabolic profile will be obtained to assess for electrolyte abnormality and renal function. Quantitative hCG will be obtained to assess for . History & Record Review Additional record(s) reviewed:: Prior outpatient record and Prior labs Lab Data Attestation: I reviewed the patient's lab results. Lab results narrative: CBC was reviewed. There is a slight anemia with a hemoglobin of 11.6 and hematocrit 33.8. The remainder is within normal limits. Basic metabolic profile was reviewed and was essentially within normal limits. Serum quantitative hCG was reviewed and was less than 1. Labs: Laboratory Results - last 24 hr 05/25/25 17:09 WBC 3.8 L RBC 3.91 L Hgb 11.6 L Hct 33.8 L MCV 86.4 MCH 29.7 MCHC 34.3 RDW Std Deviation 38.0 RDW Coeff of Jane 12.1 Plt Count 213 MPV 10.2 Immature Gran % (Auto) 0.000 Neut % (Auto) 62.5 Lymph % (Auto) 30.0 Bonner % (Auto) 6.1 Eos % (Auto) 1.1 Baso % (Auto) 0.3 Absolute Neuts (auto) 2.4 Absolute Lymphs (auto) 1.14 Nucleated RBC % 0 Sodium 141 Potassium 3.8 Chloride 106 Carbon Dioxide 24.6 Anion Gap 10 BUN 10 Creatinine 0.60 L Estim Creat Clear Calc 112.72 Est GFR (MDRD) Non-Af 128 BUN/Creatinine Ratio 16.3 Glucose 103 H Calcium 8.8 HCG, Quant < 1 Treatment and Re-Evaluation Narrative: Patient was given IV fluids. Patient declined morphine and Zofran. Patient was feeling better on reevaluation. Patient was advised of her findings. Patient was given a prescription for Naprosyn. Patient was instructed to follow-up with her primary care physician and [facility] in 5 to 7 days. Patient was instructed to return if worse in any way. Patient understood and was agreeable with the plan. All questions were answered. Discharge Plan Triage Chief Complaint: ED Provider: Varun Moreno Dx/Rx/DC Orders Clinical Impression: Abdominal pain, Status post tubal ligation Instructions: ED Abdominal Pain Unkn Cause Fem Prescriptions: New naproxen 500 mg tablet 500 mg PO BID PRN Qty: 20 0RF No Action acetaminophen [Acetaminophen Extra Strength] 500 mg tablet 1,000 mg PO Q6H PRN (Reason: fever or pain) 10 Days Qty: 30 0RF ibuprofen [ibuprofen] 600 mg tablet 600 mg PO Q6H PRN (Reason: Pain) 10 Days Qty: 30 1RF Primary Care Provider: Shahbaz Huerta Referrals: Shana Mcgrath MD [Med Staff - Active Staff, Obstetrics-Gynecology (OBGYN)] - 5-7 Days Shahbaz Huerta MD [Primary Care Provider, Internal Medicine] - 5-7 Days Print Language: Malian Disposition Disposition: Home, Self Care
[2025-05-25] MEDS: 0.9% Normal Saline (1000mL) 1,000 ML 1000 ML IV (17:49)
[2025-05-25 17:50] LABS: Hematocrit 33.8 % (37-47); Hemoglobin 11.6 g/dL (12.0-15.0); Immature Granulocytes Count 0.000 X10^3/uL (0.0-0.0); Mean Corp Hgb Conc 34.3 g/dL (32-36); Mean Corpuscular Volume 86.4 fL (81-99); Mean Platelet Vol. 10.2 fl (6.2-12.0); NRBC Flagged by Analyzer 0 % (0-5); Platelet Count 213 K/mm3 (150-450); RBC Distribution Width CV 12.1 % (11.6-14.6); RBC Distribution Width SD 38.0 fl (35.1-43.9); Red Blood Count 3.91 M/mm3 (4.2-5.4); White Blood Count 3.8 K/mm3 (4.4-11.0)
[2025-05-25 18:10] LABS: Anion Gap 10 (5-15); BUN 10 mg/dL (4-19); BUN/Creat Ratio 16.3 RATIO (10-20); Calcium,Total 8.8 mg/dL (7.6-11.0); Carbon Dioxide 24.6 mmol/L (21.0-32.0); Chloride 106 mmol/L (98-108); Estimated Creatinine Clearance 112.72 ml/min (50-250); Glucose 103 mg/dL (70-99); Potassium 3.8 mmol/L (3.3-5.1)
[2025-05-25 18:15] LABS: hCG Titer Quant., Serum < 1 mIU/mL (<9 non-preg)
[2025-05-25 18:33] VITALS: BP 106/54; PULSE 68; RESP 18; O2SAT 100
[2025-05-25 18:49] VITALS: BP 106/54; PULSE 68; RESP 18; TEMP 36.6; O2SAT 100
== END 2025-05-25 18:50 | disposition home or self-care (01) ==
PROVIDERS: Emergency Provider Emergency Medicine; PCP Internal Medicine; Visit Provider Emergency Medicine
DX: R10.32 Left lower quadrant pain (principal); N93.9 Abnormal uterine and vaginal bleeding, unspecified; D64.9 Anemia, unspecified; Z98.51 Tubal ligation status; Z87.891 Personal history of nicotine dependence
CPT/HCPCS: 80048; 84702; 85025; 96360; 99283; A4216; J2405